=== PATIENT | male | born 1950 | race Caucasian/White ===

== ENCOUNTER → 2018-03-12 14:56 | Outpatient (CLI) | payer OTHER, SELFPAY ==
--- NOTE | 2018-03-12 14:58 | ECHOD_ITS ---
Reason For Study: Arrhythmia Procedure This was a 2D Doppler, Color Flow transthoracic echocardiogram. Exam performed in department. Left Ventricle Normal LV size. Left ventricular systolic function is normal. The estimated ejection fraction is 60 %. No evidence for diastolic dysfunction. No regional wall motion abnormalities noted. Right Ventricle Normal RV size. Normal systolic function. Atria Normal left atrium. Normal right atrium. Mitral Valve Normal mitral valve. Trivial eccentric mitral valve insufficiency. Tricuspid Valve Normal tricuspid valve. Mild tricuspid valve insufficiency. Aortic Valve Normal aortic valve. Trisinus/trileaflet aortic valve. Pulmonic Valve Normal pulmonic valve. Great Vessels Normal aortic root. The pulmonary artery is normal size. Normal inferior vena cava. Pericardium/Pleural No pericardial effusion. MMode/2D Measurements & Calculations LVIDd: 5.4 cm IVSd: 0.96 cm Ao root diam: 3.1 cm LVIDs: 3.8 cm LVPWd: 0.75 cm LA dimension: 4.3 cm RVDd: 3.5 cm FS: 29.5 % LAV(MOD-bp): 42.0 ml LA A4 area: 15.9 cm2 RA A4 area: 16.3 cm2 LAV(MOD-bp) Indexed: 19.2 ml/m2 LAV(MOD-sp2): 46.1 ml LAV(MOD-sp4): 31.3 ml Doppler Measurements & Calculations MV E max tejas: 61.2 cm/sec Lat Peak E' Tejas: 7.7 cm/sec Med Peak E' Tejas: 7.0 cm/sec MV A max tejas: 83.9 cm/sec E/E' lat: 8.0 E/E' med: 8.8 MV E/A: 0.73 Ao V2 max: 162.9 cm/sec LV V1 max: 95.8 cm/sec PA V2 max: 85.5 cm/sec Ao max P.6 mmHg LV V1 max P.7 mmHg Ao V2 mean: 113.1 cm/sec Ao mean P.7 mmHg Ao V2 VTI: 33.7 cm PI end-d tejas: 65.7 cm/sec TR max tejas: 218.8 cm/sec TR max P.1 mmHg Interpretation Summary Normal LV size. Left ventricular systolic function is normal. The estimated ejection fraction is 60 %. No evidence for diastolic dysfunction. Mild tricuspid valve insufficiency. Ordering Physician: Elpidio Arais Performed By: Mildred Hendrix, NAMAN, RVT
== END ==
PROVIDERS: Family Provider Family Medicine; PCP Family Medicine; Visit Provider Internal Medicine Cardiovascular Disease
DX: E27.5 Adrenomedullary hyperfunction (principal)
CPT/HCPCS: 93306

== ENCOUNTER 2018-07-31 20:51 | Observation (INO) | payer OTHER, SELFPAY ==
[2018-07-31 20:52] VITALS: BP 121/90; PULSE 70; RESP 18; TEMP 36.6; O2SAT 98; BMI 28.4
--- NOTE | 2018-07-31 21:22 | EKG12_ITS ---
Test Reason : Blood Pressure : / mmHG Vent. Rate : 074 BPM Atrial Rate : 074 BPM P-R Int : 174 ms QRS Dur : 086 ms QT Int : 400 ms P-R-T Axes : 082 -06 010 degrees QTc Int : 444 ms Normal sinus rhythm Normal ECG Confirmed by JASMIN MENARD, ARIEL ([id number]), managing editor ZAHRAA LOPEZ ([id number]) on 08/04/2018 3:04:18 PM Referred By: ROMEO Confirmed By:ARIEL CASTELLANOS MD
--- NOTE | 2018-07-31 21:25 | RAD_ITS ---
STUDY: X-RAY CHEST REASON FOR EXAM: Male, 67 years old. Chest pain and tightness TECHNIQUE: Single AP portable view of the chest. COMPARISON: Previous study of 08/05/2014 FINDINGS: in home aide leads are present. The lungs are clear and expanded. There is no demonstrated pleural abnormality. Normal size heart. Normal mediastinum and efrain. Normal visualized pulmonary arteries. Normal visualized aortic arch and descending thoracic aorta. Normal visualized thoracic spine. Normal visualized ribs, clavicles, and shoulders. There is no demonstrated abnormality of the visualized soft tissue structures of the upper abdomen. RAD/Chest 1 View (Portable) IMPRESSION: No acute cardiopulmonary disease process is seen. Chest findings are stable in the interval. Electronically Signed: Anders Bravo MD at 21:44 EDT , Service support ,
[2018-07-31] MEDS: Aspirin 81 MG TAB.CHEW 324 MG PO (21:30)
[2018-07-31 21:31] LABS: Absolute Lymphocyte Count 1.65 X10^3/ul (0.83-4.51); Absolute Neutrophil Count 8.8 X10^3/uL (2.0-7.7); Basophil# 0.02 X10^3/uL; Basophil% 0.2 % (0-1); Eosinophil# 0.11 X10^3/uL; Hematocrit 44.7 % (40-54); Hemoglobin 15.1 g/dl (13.0-16.5); Lymphocyte # 1.65 X10^3/ul (4.0); Lymphocyte % 14.8 % (19-41); Mean Corp Hgb Conc 33.8 g/gl (32-36); Mean Corpuscular Hgb 32.1 pg (27.0-32.0); Mean Corpuscular Volume 95.1 fL (80-94); Mean Platelet Vol. 9.5 fl (6.2-12.0); Monocyte# 0.56 X10^3/uL; Neutrophil # 8.79 X10^3/uL (2.7-7.7); Neutrophil % 78.8 % (47-70); POSITIVE COUNT NO; POSITIVE DIFFERENTIAL NO; POSITIVE MORPHOLOGY NO; Platelet Count 182 K/mm3 (150-450); RBC Distribution Width CV 12.7 % (11.6-14.6); White Blood Count 11.2 K/mm3 (4.4-11.0)
--- NOTE | 2018-07-31 21:36 | ED.DCSUM_ITS ---
- ER Visit Summary Date of Service: 07/31/18 Chief Complaint: Chest pain, dizziness History of Present Illness: The patient is a 67 M who presents with chest pain. Started 2 hours ago. He was dizzy after riding the rides at the [employer]. He had a sharp and tight pain in the left side of his chest. It did not radiate. He did admit to shortness of breath when he was walking at that time. Nothing makes it better or worse. 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 He had a normal echocardiogram in February. He does take a daily aspirin. Physical Examination: Vital signs reviewed. HEENT exam unremarkable. Heart is regular rate and rhythm without murmurs. Lungs are clear to auscultation. Abdomen is soft and nontender. Extremities reveal no edema. Peripheral pulses are equal. Skin exam normal. Neurologic exam normal. Test Results: EKG is sinus rhythm with rate of 74. No ST changes. Chest x-ray reveals chronic changes with nothing acute. White blood cell count 11.2. Chloride 109, glucose 174. Troponin normal Emergency Department Course and Treatment: She was given aspirin. He has a BERNABE score of 2. He states his pain went away and then came back. Due to this , I feel the patient should be admitted to the hospital he has not had a recent stress test. I spoke with the hospitalist to admit the patient to PCU Treatment Plan: [] Disposition: Admit Impression: Chest pain This note was generated with [employer] dictation software. It may contain incorrect words, spelling, and punctuation that were not noted in review of the chart prior to signing ED Disposition - Plan for ED Patient: Chief Complaint: Chest Pain Referrals: Lincoln Henning MD [Primary Care Provider] -
[2018-07-31 21:45] LABS: Anion Gap 6 (5-15); BUN 16 mg/dL (7-18); BUN/Creat Ratio 13.1 RATIO (10-20); Calcium,Total 8.9 mg/dL (8.5-10.1); Chloride 109 mmol/L (98-107); Creatinine, Serum 1.22 mg/dL (0.70-1.30); EST Glomerular Filtration Rate 63 mL/min (>60); Est Glom Filt Rate - Afr Amer 76 mL/min (>60); Estimated Creatinine Clearance 59.84 ml/min; Glucose 174 mg/dL (74-106); Potassium 4.2 mmol/L (3.5-5.1); Sodium Level 142 mmol/L (136-145)
[2018-07-31 22:15] VITALS: BP 137/48; PULSE 62; RESP 15; O2SAT 98
--- NOTE | 2018-07-31 22:32 | PCM.HP.STD ---
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 He went to the [facility] where he had three fun rides with his grandson. These rides included 'twisters'. His pain initially was at his left side of abdomen and to his left flank. This left flank pain and abdominal pain disappeared but on his way to the hospital he developed persistent pain below his left breast that began to radiate upwards. Associated with his symptoms is diaphoresis. He rate the pain below his left breast; and his left flank/abdominal pain as a 3 out of 10 Patient symptoms started about 2 hours before presentation to the ED. At the ED he was given ASA 324mg Patient follows up for Dr. Arias. Patient had echocardiogram on 03/12/2018 that showed normal systolic and diastolic function; and trivial mitral insufficiency and mild tricuspid insufficiency. Previously he had a cardiac cath that did not show obstructive coronary disease. 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) H/O congestive cardiomyopathy (Chronic) GERD (gastroesophageal reflux disease) (Chronic) HLD (hyperlipidemia) (Chronic) Family history of heart disease (Chronic) Medical History: Medical History (Last Reviewed 07/31/18 @ 23:57 by Gomez Anand MD) Substernal precordial chest pain (Chronic) R07.2 History of deep vein thrombosis of lower extremity (Chronic) Z86.718 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) E27.5 H/O congestive cardiomyopathy (Chronic) Z86.79 GERD (gastroesophageal reflux disease) (Chronic) K21.9 Chest pain (Acute) R07.9 HLD (hyperlipidemia) (Chronic) E78.5 Family history of heart disease (Chronic) Z82.49 H/O precordial chest pain Z87.898 Allergies No Known Allergies Allergy (Verified 07/31/18 20:56) Home Medications: Ambulatory Orders Medication Instructions Recorded Aspirin [Aspirin, Baby] 81 mg PO DAILY 12/14/13 Ranolazine [Ranexa] 500 mg PO BID 12/14/13 Multivitamins,Ther W-Minerals 1 tab PO DAILY 10/28/15 [Multivitamin With Minerals] cholecalciferol (vitamin D3) 1,000 1,000 unit PO QDAY tab 02/06/18 unit tablet atorvastatin 20 mg tablet 20 mg PO QDAY 02/13/18 Surgical History: Surgical History (Last Reviewed 07/31/18 @ 23:57 by Gomez Anand MD) History of tonsillectomy Z90.89 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 Underwent a radical prostatectomy for prostate cancer. Lives: Spouse/ Significant Other Smoking Status: Never smoker Alcohol: Occasional - *Family History Maternal Family History: Family History (Last Reviewed 07/31/18 @ 23:58 by Gomez Anand MD) Father CAD (coronary artery disease) CVA (cerebral vascular accident) Myocardial infarction, Onset Age: 50 Other Family history of heart disease History Items: - - His mother in her sleep presumably of a myocardial infarction Paternal Family History: Family History (Last Reviewed 07/31/18 @ 23:58 by Gomez Anand MD) Father CAD (coronary artery disease) CVA (cerebral vascular accident) Myocardial infarction, Onset Age: 50 Other Family history of heart disease History Items: - - His father had an [place] in his late 40s. Sibling Family History: Family History (Last Reviewed 07/31/18 @ 23:58 by Gomez Anand MD) Father CAD (coronary artery disease) CVA (cerebral vascular accident) Myocardial infarction, Onset Age: 50 Other Family history of heart disease History Items: - - He has a brother who of HIV Review of Systems Constitutional: Denies: Chills, Fever, Weight Change HEENT: Denies: Head Aches, Sinus Congestion, Sinus Drainage Cardiovascular: Reports: Chest Pain, Light Headedness Respiratory: Denies: Cough, Shortness of breath at rest, Sputum production Gastrointestinal: Reports: Abdominal Pain - Left flank pain Genitourinary: Denies: Dysuria Musculoskeletal: Denies: Joint Pain, Joint Tenderness Skin: Denies: Rash, Wounds Neurological: Denies: Numbness, Tingling, Focal weakness Psychiatric: Denies: Anxiety, Depression, Homicidal Ideations, Suicidal Ideations Hematologic/ Lymphatic: Denies: Easy Bruising, Easy Bleeding VTE Information - Inpt Only VTE Present on Admission: No VTE Mechan Device Prophylaxis: None VTE Pharm Prophylaxis ordered?: Yes - Physical Exam General: Alert, Oriented x3, Cooperative, - - Mild distress secondary to chest pain HEENT: Atraumatic, PERRLA, EOMI, Normocephalic Neck: Supple, No JVD, Negative Carotid Bruits Lungs: Clear to auscultation, Normal air movement Cardiovascular: Regular rate, No murmurs Abdomen: Soft, Hypoactive Bowel Sounds Extremities: No edema, Capillary Refill Less than 3 Seconds Skin: No rashes, No breakdown Musculoskeletal: No Tenderness to Palpation of Joints or Extremities Vital Signs Temp Pulse Resp BP Pulse Ox 97.8 F 62 15 137/48 H 98 07/31/18 20:52 07/31/18 22:15 07/31/18 22:15 07/31/18 22:15 07/31/18 22:15 Oxygen Flow Rate (L/min) 2 Oxygen Delivery Method Nasal Cannula Weight: 89.981 kg Body Mass Index (BMI) 28.4 Laboratory Tests Past 24 Hrs 07/31/18 07/31/18 20:55 20:55 WBC 11.2 H RBC 4.70 Hgb 15.1 Hct 44.7 MCV 95.1 H MCH 32.1 H MCHC 33.8 RDW 12.7 RDW Differential 44.0 H Plt Count 182 MPV 9.5 Immature Gran % (Auto) 0.200 Neut % (Auto) 78.8 H Lymph % (Auto) 14.8 L [place] % (Auto) 5.0 Eos % (Auto) 1.0 Baso % (Auto) 0.2 Absolute Neuts (auto) 8.8 H Absolute Lymphs (auto) 1.65 Total Counted Not Reportable Sodium 142 Potassium 4.2 Chloride 109 H Carbon Dioxide 27.0 Anion Gap 6 BUN 16 Creatinine 1.22 Estim Creat Clear Calc 59.84 Est GFR (MDRD) Af Amer 76 Est GFR (MDRD) Non-Af 63 BUN/Creatinine Ratio 13.1 Glucose 174 H Calcium 8.9 Troponin I < 0.015 Assessment/Plan All Active Problems (Last Reviewed 07/31/18 @ 23:57 by Gomez Anand MD) Chest pain (Acute) History of prostate cancer (Resolved) History of radical prostatectomy (Resolved) Personal history of pheochromocytoma (Resolved) The patient is a 67 year old M with a significant history of pheochromocytoma status post resection and 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 Chest Pain Likely the ride that he took stresses his heart Admit to a monitored bed on PCU CXR independently reviewed confirms no acute disease. EKG is not remarkable Old records reviewed showed unremarkable echocardiogram ASA 81 mg p.o. daily SL NTG 0.4 mg prn as needed for chest pain Ranexa continued Takes home Lipitor 20 mg daily. Lipitor escalated to 80 mg daily. Serial cardiac enzymes Stat EKG as needed for chest pain Treadmill Stress test in the AM if the cardiac enzymes are negative Lipids in am Since patient is a known patient of Dr. Arias, will consult cardiology Left Flank Pain/Left abdominal pain Resolved Could be muscle strain/sprain or a component of cardiac origin of pain Management of chest pain as above DVT prophylaxis Subcutaneous Lipitor Code Visit OBSV E&M: 64345 Initial observation care L3
--- NOTE | 2018-07-31 23:11 | NURSING ---
Called ED vulcanizing press operator, Ryan at this time confirm Pt okay to come to PCU.
--- NOTE | 2018-07-31 23:24 | EKG12_ITS ---
Test Reason : AM Blood Pressure : / mmHG Vent. Rate : 073 BPM Atrial Rate : 073 BPM P-R Int : 196 ms QRS Dur : 094 ms QT Int : 410 ms P-R-T Axes : 002 -20 -08 degrees QTc Int : 451 ms Normal sinus rhythm Normal ECG When compared with ECG of 31-JUL-2018 23:33, MANUAL COMPARISON REQUIRED, DATA IS UNCONFIRMED Confirmed by JASMIN MENARD, ARIEL ([id number]), field map editor ZAHRAA LOPEZ ([id number]) on 08/04/2018 3:54:44 PM Referred By: HOSP Confirmed By:ARIEL CASTELLANOS MD
[2018-07-31 23:30] VITALS: BP 142/79; PULSE 60; RESP 16; TEMP 36.2; O2SAT 98
[2018-08-01] VITALS (8 sets, daily range): BP systolic 134–135; BP diastolic 82–84; PULSE 60–70; RESP 16–18; TEMP 36.6–36.7; O2SAT 95–98; BMI 27.5
[2018-08-01 03:46] LABS: Hematocrit 41.7 % (40-54); Hemoglobin 14.3 g/dl (13.0-16.5); Mean Corp Hgb Conc 34.3 g/gl (32-36); Mean Corpuscular Hgb 32.6 pg (27.0-32.0); Mean Platelet Vol. 9.1 fl (6.2-12.0); Platelet Count 174 K/mm3 (150-450); RBC Distribution Width CV 12.5 % (11.6-14.6); RBC Distribution Width SD 42.3 fl (35.1-43.9); Red Blood Count 4.39 M/mm3 (4.6-6.2); White Blood Count 5.8 K/mm3 (4.4-11.0)
[2018-08-01 03:47] LABS: Scan Indicated on CBC? Y/N NO
[2018-08-01 03:49] LABS: Partial Thromboplast Time 26.9 Seconds (24.1-36.2)
[2018-08-01 03:55] LABS: Prothrombin Time (Protime)PT. 12.7 SECONDS (11.7-14.9)
--- NOTE | 2018-08-01 05:55 | EKG12_ITS ---
Test Reason : REPEAT Blood Pressure : / mmHG Vent. Rate : 059 BPM Atrial Rate : 059 BPM P-R Int : 204 ms QRS Dur : 098 ms QT Int : 430 ms P-R-T Axes : 049 -15 007 degrees QTc Int : 425 ms Sinus bradycardia Otherwise normal ECG When compared with ECG of 28-DEC-2015 12:32, No significant change was found Confirmed by JASMIN MENARD, ARIEL ([id number]), greeting card editor ZAHRAA LOPEZ ([id number]) on 08/04/2018 3:55:51 PM Referred By: ANDREW Confirmed By:ARIEL CASTELLANOS MD
[2018-08-01] MEDS: Aspirin E.C. 81 MG Tablet PO (06:15)
--- NOTE | 2018-08-01 08:19 | CON.PCM_ITS ---
Reason for Consult Date of Consultation: 08/01/18 Reason for Consultation: Chest pain. History of Present Illness: KACI BEAN, is a 67 M who presented to the emergency room after he started experiencing chest discomfort. He said that [place] and [place] doing [place] with his grandson and was actually hanging upside down. He started experiencing pain which started in his left lower quadrant and then migrated to the left upper quadrant and then to his chest. He was also diaphoretic. He got concerned and presented to the emergency room where he was evaluated and the decision to admit him was made. He is a gentleman with a history of pheochromocytoma status post resection and nonischemic cardiac myopathy which has since resolved. At this time he denies any chest pain or shortness breath or paroxysmal nocturnal dyspnea pedal edema he had previously developed a DVT for which he was placed on Xarelto. You remember he had developed some chest discomfort and underwent a cardiac catheterization with demonstrated no obstructive coronary disease. He was placed on Ranexa which he appears to be tolerating quite well. He has had no other symptomatology his physical exam is otherwise unremarkable his blood pressure is excellent. Past Medical History Allergies/Adverse Reactions: Allergies No Known Allergies Allergy (Verified 07/31/18 20:56) Home Medications: Ambulatory Orders Medication Instructions Recorded Aspirin [Aspirin, Baby] 81 mg PO DAILY 12/14/13 Ranolazine [Ranexa] 500 mg PO BID 12/14/13 Multivitamins,Ther W-Minerals 1 tab PO DAILY 10/28/15 [Multivitamin With Minerals] cholecalciferol (vitamin D3) 1,000 1,000 unit PO QDAY tab 02/06/18 unit tablet atorvastatin 20 mg tablet 20 mg PO QDAY 02/13/18 Past Medical History (Chronic Problems): Chronic Problems (Last Reviewed 07/31/18 @ 23:57 by Gomez Anand MD) Substernal precordial chest pain (Chronic) History of deep vein thrombosis of lower extremity (Chronic) 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 Underwent a radical prostatectomy for prostate cancer. - *Family History Maternal Family History: Family History (Last Reviewed 07/31/18 @ 23:58 by Gomez Anand MD) Father CAD (coronary artery disease) CVA (cerebral vascular accident) Myocardial infarction, Onset Age: 50 Other Family history of heart disease History Items: - - His mother in her sleep presumably of a myocardial infarction Paternal Family History: Family History (Last Reviewed 07/31/18 @ 23:58 by Gomez Annad MD) Father CAD (coronary artery disease) CVA (cerebral vascular accident) Myocardial infarction, Onset Age: 50 Other Family history of heart disease History Items: - - His father had an [place] in his late 40s. Sibling Family History: Family History (Last Reviewed 07/31/18 @ 23:58 by Gomez Anand MD) Father CAD (coronary artery disease) CVA (cerebral vascular accident) Myocardial infarction, Onset Age: 50 Other Family history of heart disease History Items: - - He has a brother who of HIV Lives: Spouse/ Significant Other Smoking Status: Never smoker Alcohol: None, Occasional Drugs: None Review of Systems - Review of Systems General: Denies: Fever, Night Sweats, Fatigue Cardiovascular: Denies: Chest Discomfort, Shortness of Breath, Orthopnea, PND, Peripheral Edema, Palpitations, Lightheadedness, Dizziness, Near Syncope, Syncope Respiratory: Denies: Cough, Sputum Production, Hemoptysis Gastrointestinal: Denies: Hematemesis, Hematochezia, Melena Genitourinary: Denies: Dysuria, Hematuria Skin: Denies: Rash Subjectve: Pleasant gentleman in no apparent distress Objective: Vital Signs Temp Pulse Resp BP Pulse Ox 98.1 F 70 18 134/82 H 95 08/01/18 05:02 08/01/18 06:55 08/01/18 05:02 08/01/18 05:02 08/01/18 05:02 Oxygen Flow Rate (L/min) 2 Oxygen Delivery Method Room Air Weight: 191 lb 12.835 oz Body Mass Index (BMI) 27.5 General: Awake, Alert, Oriented x 3 HEENT: PERRL, EOMI, Sclera Non Icteric Neck: Supple, Good ROM, No Lymph Node Enlargement Lungs: Clear to auscultation Cardiovascular: Regular Rhythm, Normal S1, Normal S2, No Murmurs, No Rubs, No Gallops Vascular: No Carotid Bruits, Normal Femoral Pulses, Normal Radial Pulses, Normal Dorsalis Pedal Pulse, Normal Posterior Tibial Pulses Abdomen: Bowel Sounds Present, Soft, Non Tender, No HSM, No Organomegaly Extremities: No Cyanosis, No Clubbing, No edema Neurological: No Focal Motor or Sensory Deficit 08/01/18 00:27: Troponin I < 0.015 08/01/18 03:30: PT 12.7, INR 1.0 08/01/18 03:30: Troponin I < 0.015 08/01/18 03:30: WBC 5.8, RBC 4.39 L, Hgb 14.3, Hct 41.7, MCV 95.0 H, MCH 32.6 H , MCHC 34.3, RDW 12.5, RDW Differential 42.3, Plt Count 174, MPV 9.1 08/01/18 03:30: APTT 26.9 Rhythm: EKG: Normal sinus rhythm with no acute changes Assessment/Plan 1. Atypical chest pain Patient has a history of pheochromocytoma which has been resected and no obstructive coronary disease done on cardiac catheterization at least twice. His chest discomfort appears to be atypical and provoked by his rides. My recommendation would be to pursue the stress testing and if it is normal then he can be discharged for outpatient follow-up. I have explained this to him he understands and agrees to proceed. 2. Cardiomyopathy He did have a previous cardia myopathy secondary to a pheochromocytoma. His ejection fraction has noted to be back to normal and at this time I do not think there is a reason to pursue any repeat echocardiographic evaluation. Thank you for allowing me to participate in the care of your patient. Please don't hesitate to call if any issues arise
[2018-08-01 08:24] LABS: Anion Gap 9 (5-15); BUN 15 mg/dL (7-18); BUN/Creat Ratio 13.3 RATIO (10-20); Calcium,Total 8.2 mg/dL (8.5-10.1); Chloride 112 mmol/L (98-107); Cholesterol 149 mg/dL (200); Creatinine, Serum 1.13 mg/dL (0.70-1.30); EST Glomerular Filtration Rate 68 mL/min (>60); Est Glom Filt Rate - Afr Amer 83 mL/min (>60); Glucose 112 mg/dL (74-106); High Density Lipoprotein 38 mg/dL; Potassium 3.9 mmol/L (3.5-5.1); Sodium Level 145 mmol/L (136-145); Triglycerides 79 mg/dL; Very Low Density Lipoprotein 16 mg/dL (5-40)
--- NOTE | 2018-08-01 10:48 | STRESSREP ---
Stress Test Report Exercise myocardial perfusion stress test. 67-year-old male with a history of chest pain. Stress protocol: Resting EKG demonstrates sinus rhythm with a rate of 63 bpm normal intervals and noted. The patient exercised according to regular Peyman protocol for total duration of 9 minutes completing stage III of the Peyman protocol the maximum heart rate attained was 725 beats minute which is 82% of maximum predicted heart rate the maximum workload was 10.1 metabolic equivalent. At rest there were no ST or T-wave changes noted suggest ischemia peak exercise upsloping ST changes only were noted with no meet the criteria for ischemia. No clinical angina was noted. Resting blood pressure is 136/94. The peak blood pressure is 178/84 mmHg. Myocardial perfusion protocol. 11.4 mCi of technetium 99m sestamibi was injected at rest. The patient exercised according to regular Peyman protocol for total duration of 9 minutes attaining 82% of maximum predicted heart rate and a workload of 10.1 metabolic equivalents at peak exercise 32.9 mCi of technetium 99m sestamibi was injected stress images were obtained stress and rest images were reconstructed and compared in the short axis vertical long horizontal long axis. Gated images were also obtained next Perfusion SPECT analysis: Review of the stress images demonstrate normal uptake of tracer noted in all areas of the myocardium. The resting images similarly demonstrate normal uptake of tracer noted in all areas of the myocardium. No reversibility is noted suggest ischemia. Gated SPECT analysis: The gated ejection fraction is 69%. Conclusion: Normal excise myocardial perfusion stress test at a high workload. Preserved ejection fraction.
--- NOTE | 2018-08-01 11:05 | PCM.DC ---
You will use the following diet at home:: Cardiac Discharge Activity: Return to Normal Activity Call your doctor if you observe: Shortness of breath, Dizziness, Fainting spells, Chest pain Allergies/Adverse Reactions: Allergies No Known Allergies Allergy (Verified 07/31/18 20:56) Medications to take at Discharge Aspirin [Aspirin, Baby] 81 mg PO DAILY 12/14/13 Ranolazine [Ranexa] 500 mg PO BID 12/14/13 Multivitamins,Ther W-Minerals [Multivitamin With Minerals] 1 tab PO DAILY 10/28/15 cholecalciferol (vitamin D3) 1,000 unit tablet 1,000 unit PO QDAY tab 02/06/18 atorvastatin 20 mg tablet 20 mg PO QDAY 02/13/18 Primary Care Physician: Lincoln Henning MD [Primary Care Provider] - Please follow up with your Primary Care Physician in: 1 Week Test Results: Test results from this visit will be discussed in further detail at your follow-up appointment, if applicable. Proposed Discharge Date: 08/01/18
--- NOTE | 2018-08-01 11:09 | PCM.DC.SUM ---
<Radha Chakraborty - Last Filed: 08/01/18 11:22> Discharge Date and Diagnosis Date of Admission: 07/31/18 Date of Discharge: 08/01/18 - Primary Discharge Diagnosis 1. 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 Chest findings are stable in the interval. Electronically Signed: Anders Bravo MD at 21:44 EDT , Service support , Operations: None Procedures: Stress test Summary of Care Provided: The patient is a 67 year old M admitted 07/31/2018 due to chest pain. He states this occurred while [place] rides at the [place] with his grandson. Patient also notes he has chronic chest pain and is on Ranexa. 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 Patient was evaluated by cardiology. Troponin negative. Patient underwent nuclear stress test which was negative for ischemia. Patient denies further chest pain. ACS ruled out. Echocardiogram in February 2018 showed an EF of 60%, no evidence of diastolic dysfunction. Patient stable for discharge home with further follow-up with primary care physician. Patient also follows with Dr. Arias as outpatient. Continue outpatient follow-up with cardiology as scheduled. General: Alert, Oriented x3, Cooperative HEENT: Atraumatic, PERRLA, EOMI, Normocephalic Neck: Supple, No JVD, Negative Carotid Bruits Lungs: Clear to auscultation, Normal air movement Cardiovascular: Regular rate, No murmurs Abdomen: Soft, normal bowel sounds, nontender Extremities: No edema, Capillary Refill Less than 3 Seconds Skin: No rashes, No breakdown Musculoskeletal: No Tenderness to Palpation of Joints or Extremities Patient seen exam prior to discharge. Physical assessment as noted above. Patient is stable for discharge home with follow-up with primary care physician and cardiology as noted above. Discharge Diet: Low fat/ Low Cholesterol Discharge Activity: Return to Normal Activity Call your doctor if you observe: Shortness of breath, Dizziness, Fainting spells, Chest pain Home Medications: Medications to take at Discharge Aspirin [Aspirin, Baby] 81 mg PO DAILY 12/14/13 Ranolazine [Ranexa] 500 mg PO BID 12/14/13 Multivitamins,Ther W-Minerals [Multivitamin With Minerals] 1 tab PO DAILY 10/28/15 cholecalciferol (vitamin D3) 1,000 unit tablet 1,000 unit PO QDAY tab 02/06/18 atorvastatin 20 mg tablet 20 mg PO QDAY 02/13/18 Primary Care Physician: Lincoln Henning MD [Primary Care Provider] - Please follow up with your Primary Care Physician in: 1 Week Disposition: Home Minutes spent on discharge:: 35 Patient Condition:: Stable Medical Necessity - Tobacco Use Smoking Status: Never smoker Meaningful Use Info Meaningful Use Diagnoses (Choose all that apply): None applicable <Roly Hu - Last Filed: 08/01/18 16:06> Discharge Date and Diagnosis - Secondary Discharge Diagnosis Chronic Problems (Last Reviewed 07/31/18 @ 23:57 by Gomez Anand MD) Substernal precordial chest pain (Chronic) History of deep vein thrombosis of lower extremity (Chronic) 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 I have independently interviewed and examined the patient and reviewed pertinent history, examination findings, laboratory and plan of management. I have reviewed the note and agree with the documented findings with the few additional points. In brief, patient is admitted for atypical left-sided chest pain. Patient had chest pain after he had ride which I think it was too much for his age and he started having left upper quadrant abdominal wall pain which moved to chest. He had nuclear stress test which was negative for ischemia. Discharge medication reconciliation done. Discharge follow-up instructions completed. I have discussed my assessment with Radha FRANKEL and orders have been reviewed. [] Code Visit OBSV E&M: 89770 Observation care discharge
--- NOTE | 2018-08-01 11:22 | DS.PCM_ITS ---
<Radha Chakraborty - Last Filed: 08/01/18 11:22> Discharge Date and Diagnosis Date of Admission: 07/31/18 Date of Discharge: 08/01/18 - Primary Discharge Diagnosis 1. 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 Chest findings are stable in the interval. Electronically Signed: Anders Bravo MD at 21:44 EDT , Service support , Operations: None Procedures: Stress test Summary of Care Provided: The patient is a 67 year old M admitted 07/31/2018 due to chest pain. He states this occurred while riding rides at the fair with his grandson. Patient also notes he has chronic chest pain and is on Ranexa. 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 Patient was evaluated by cardiology. Troponin negative. Patient underwent nuclear stress test which was negative for ischemia. Patient denies further chest pain. ACS ruled out. Echocardiogram in February 2018 showed an EF of 60%, no evidence of diastolic dysfunction. Patient stable for discharge home with further follow-up with primary care physician. Patient also follows with Dr. Arias as outpatient. Continue outpatient follow-up with cardiology as scheduled. General: Alert, Oriented x3, Cooperative HEENT: Atraumatic, PERRLA, EOMI, Normocephalic Neck: Supple, No JVD, Negative Carotid Bruits Lungs: Clear to auscultation, Normal air movement Cardiovascular: Regular rate, No murmurs Abdomen: Soft, normal bowel sounds, nontender Extremities: No edema, Capillary Refill Less than 3 Seconds Skin: No rashes, No breakdown Musculoskeletal: No Tenderness to Palpation of Joints or Extremities Patient seen exam prior to discharge. Physical assessment as noted above. Patient is stable for discharge home with follow-up with primary care physician and cardiology as noted above. Discharge Diet: Low fat/ Low Cholesterol Discharge Activity: Return to Normal Activity Call your doctor if you observe: Shortness of breath, Dizziness, Fainting spells , Chest pain Home Medications: Medications to take at Discharge Aspirin [Aspirin, Baby] 81 mg PO DAILY 12/14/13 Ranolazine [Ranexa] 500 mg PO BID 12/14/13 Multivitamins,Ther W-Minerals [Multivitamin With Minerals] 1 tab PO DAILY cholecalciferol (vitamin D3) 1,000 unit tablet 1,000 unit PO QDAY tab 02/06/18 atorvastatin 20 mg tablet 20 mg PO QDAY 02/13/18 Primary Care Physician: Lincoln Henning MD [Primary Care Provider] - Please follow up with your Primary Care Physician in: 1 Week Disposition: Home Minutes spent on discharge:: 35 Patient Condition:: Stable Medical Necessity - Tobacco Use Smoking Status: Never smoker Meaningful Use Info Meaningful Use Diagnoses (Choose all that apply): None applicable <Roly Hu - Last Filed: 08/01/18 16:06> Discharge Date and Diagnosis - Secondary Discharge Diagnosis Chronic Problems (Last Reviewed 07/31/18 @ 23:57 by Gomez Anand MD) Substernal precordial chest pain (Chronic) History of deep vein thrombosis of lower extremity (Chronic) 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 I have independently interviewed and examined the patient and reviewed pertinent history, examination findings, laboratory and plan of management. I have reviewed the note and agree with the documented findings with the few additional points. In brief, patient is admitted for atypical left-sided chest pain. Patient had chest pain after he had ride which I think it was too much for his age and he started having left upper quadrant abdominal wall pain which moved to chest. He had nuclear stress test which was negative for ischemia. Discharge medication reconciliation done. Discharge follow-up instructions completed. I have discussed my assessment with Radha FRANKEL and orders have been reviewed. [] Code Visit OBSV E&M: 51666 Observation care discharge
[2018-08-01] MEDS: Ibuprofen 600 MG Tablet PO (11:51)
== END 2018-08-01 11:06 | disposition home or self-care (01) ==
LOC: ED 21:18 → PCU 23:12
PROVIDERS: Admitting Provider Hospitalist; Emergency Provider Emergency Medicine; Family Provider Family Medicine; PCP Family Medicine; Visit Provider Internal Medicine
DX: R07.89 Other chest pain (principal); E78.5 Hyperlipidemia, unspecified; K21.9 Gastro-esophageal reflux disease without esophagitis; Z85.46 Personal history of malignant neoplasm of prostate; I42.9 Cardiomyopathy, unspecified; Z79.899 Other long term (current) drug therapy; Z79.82 Long term (current) use of aspirin; Z86.718 Personal history of other venous thrombosis and embolism; R42 Dizziness and giddiness; R06.02 Shortness of breath
CPT/HCPCS: 36415; 71045; 78452; 80048; 80061; 84484; 85025; 85027; 85610; 85730; 93005; 93017; 99218; 99285; A9500; A4216; G0378

== ENCOUNTER → 2019-08-07 17:47 | Outpatient (CLI) | payer OTHER, SELFPAY ==
[2019-02-10 15:56] VITALS: BMI 29.1
--- NOTE | 2019-08-07 18:15 | MRI_ITS ---
HISTORY:RIGHT 2nd MTPJ plantar plate tear, capsulitis. Feels like Tquot;walking on a marbleTquot; at base of 2nd toe . Second metatarsophalangeal joint capsulitis and intermetatarsal space neuroma MRI EXAMINATION OF THE Rightforefoot COMPARISON: None # of images including paperwork:189 TECHNIQUE: Sagittal T1 and STIR, coronal T2 and axial T1 and T2 FINDINGS: Bones: No fracture, contusion, bone marrow edema, or bone marrow tumor is identified. There is no evidence for osteomyelitis. Subtle increased signal on STIR-weighted images within the medial sesamoid seen on sagittal image 7 series 5 Osteophyte formation is seen at the first metatarsal head Hammertoe deformities are seen at the second through fifth toes Degenerative changes seen with joint space narrowing and osteophyte formation at the first metatarsophalangeal joint with minimal hallux valgus deformity Joints: There is a minimal joint effusion seen at the third metatarsophalangeal joint dorsally. Ligaments: The visualized ligaments are unremarkable without medial or lateral collateral ligament rupture or strain. Soft tissues: There is fluid seen within the intermetatarsal bursa between the first and second metatarsal head second and third and third and fourth.. No Schneider's neuroma or other mass is seen. Question small tear of the lateral plantar plate seen on axial image 17 series 8 involving digit 1. No significant fluid is noted in this region however. The remainder the plantar plates are intact. Tendons: The visualized foot tendons are intact without splitting, increased or decreased caliber, or discontinuity identified. MRI/Lower Ext/No Jt/w/o IMPRESSION: I do not see evidence of a Schneider's neuroma It may be of benefit to repeat the study with contrast as this may enhance visualization if clinically indicated There is degenerative change seen at the first metatarsophalangeal joint with a mild hallux valgus deformity Small joint effusion seen at the third metatarsophalangeal joint Question medial plantar plate tear involving digit 1 but no significant fluid is seen in this region. There is minimal edema seen within the medial sesamoid Collateral ligaments appear intact. Intermetatarsal bursal fluid collection involving the first and second, second and third and third and fourth intermetatarsal versus. at 1950 Reported and signed by: Nadia Pastor DO Electronically Signed: Nadia Pastor DO at 19:49 EDT Tel , Service support ,
== END ==
PROVIDERS: Family Provider Family Medicine; PCP Family Medicine; Referring Provider Podiatrist; Visit Provider Podiatrist
DX: S93.691A Other sprain of right foot, initial encounter (principal); M77.51 Other enthesopathy of right foot and ankle; G57.61 Lesion of plantar nerve, right lower limb
CPT/HCPCS: 73718

== ENCOUNTER → 2019-09-21 12:59 | Outpatient (CLI) | payer OTHER, SELFPAY ==
[2019-08-18 11:04] VITALS: BMI 29.1
--- NOTE | 2019-09-21 13:01 | STEWCON_ITS ---
Reason For Study: CAD, Chest Pain Stress Results Protocol: Peyman Protocol Maximum Predicted HR: 150 bpm Target HR: 128 bpm % Maximum Predicted HR: 85 % DurationHeart Rate Stage (mm:ss) (bpm) BP Comment Baseline 64 130/84No Chest Pain; 3 ML Diluted Definity Given Peyman Protocol Stage I 3:00 88 138/70No Chest Pain Peyman Protocol Stage II 3:00 96 140/68No Chest Pain Peyman Protocol Stage III 3:00 112 150/62No Chest Pain Peyman Protocol Stage IV 0:36 127 / No Chest Pain Recovery 76 128/82No Chest Pain Stress Duration: 9:36 mm:ss Maximum Stress HR: 127 bpm METS: 11 Baseline Echocardiogram Findings Stress Echo Wall motion Data Resting WM Intermediate WM Stress WM Interpretation Summary Exercise stress echo. Resting EKG demonstrates sinus rhythm with a rate of 63 bpm normal intervals are noted resting blood pressure 730/80 4 mmHg. The patient exercised according to regular Peyman protocol for total duration of 9 minutes and 36 seconds. The maximum heart rate attained was 129 bpm which was 86% of maximum predicted heart rate and maximum workload was 11.7 metabolic equivalents. At rest there were no ST or T wave changes noted suggest ischemia peak exercise upsloping ST changes only were noted with no meet the criteria for ischemia. No clinical angina was noted the test was terminated due to the target heart rate being achieved. Resting blood pressures 130/84 with a peak blood pressure 150/78 mmHg. Stress echocardiogram. The stress echo cardiographic images were obtained with and without Definity. The resting ejection fraction was noted to be 50 to 53%. The peak ejection fraction was noted to be 65% no wall motion abnormalities were noted. Conclusion: Exercise stress test with no EKG criteria for ischemia. Normal resting and stress echocardiographic images at a high workload. Ordering Physician: Elpidio Arias Referring Physician: Pascual Henning Performed By: Marianna Fernandez RDCS
== END ==
PROVIDERS: Family Provider Family Medicine; PCP Family Medicine; Referring Provider Internal Medicine Cardiovascular Disease; Visit Provider Internal Medicine Cardiovascular Disease
DX: I25.119 Atherosclerotic heart disease of native coronary artery with unspecified angina pectoris (principal); R07.9 Chest pain, unspecified
CPT/HCPCS: 93017; 93350; Q9957; A4216; C8928

== ENCOUNTER 2019-12-25 12:21 | Day surgery (SDC) | payer OTHER, SELFPAY ==
[2019-08-18 11:04] VITALS: BMI 29.1
[2019-12-25] VITALS (7 sets, daily range): BP systolic 111–152; BP diastolic 71–88; PULSE 57–74; RESP 16–18; TEMP 36.2–36.6; O2SAT 97–100; BMI 29.9
--- NOTE | 2019-12-25 | NEUR_PTH ---
PATIENT: KACI BEAN LOC: [facility] – [place] U#:[id number] AGE/SX: 69/M ROOM: RE12/25/[address]: Dr. Dominick Valverde DPM : 1950 BED: DIS: 12/25/2019 SPEC #: [id number] RECD: 12/25/19 14:34 STATUS: JANNETTE REJuan #: [id number] CORIN: 12/25/19 00:[address]: Dominick Valverde DEPT: SURGICAL PATHOLOGY RECD BY: Kenney Avery ENTERED: 12/28/19 12:22 SP TYPE: NEUROMA OTHR DR: Dr. Lincoln Henning MD Tissues: A - NEUROMA B - Plantar digital nerves, NOS Procedures: Decalcification bone/plaque Surgery Specimen Level IV HEADER OPERATION: Fusion correction of second hammertoe, second metatarsal osteotomy PRE-OP DIAGNOSIS: Second digit hammertoe; second phalangeal plantar plate injury; bursitis/ intermetatarsal neuroma second intermetatarsal space TISSUE SUBMITTED: A - Neuroma second toe right foot, B - Plantar plate second toe right foot MICROSCOPIC DIAGNOSIS A. Soft tissue, second toe, right foot, biopsy: Consistent with neuroma. B. Plantar plate, second toe, right foot, biopsy: Bone and fibrocollagenous tissue with minimal reparative change. AM:gallito 12/31/19 MICROSCOPIC DESCRIPTION Slides are reviewed. GROSS DESCRIPTION A - Received in fixative is one container labeled with the patient's name and designated neuroma right second toe. The specimen consists of multiple irregular fragments of light malik-yellow soft tissue that in aggregate measure 3 x 2 x 0.2 cm. The specimen is totally submitted in one cassette. B - Received in fixative is one container labeled with the patient's name and designated plantar plate right second toe. The specimen consists of two bony fragments of malik-white soft tissue measuring in aggregate 2 x 1 x 0.2 cm. The specimen is submitted in its entirety in one cassette after decalcification. / AM:gallito 12/28/19 TC:5 CPT: 34340 x2, 07536
--- NOTE | 2019-12-25 12:49 | DCINST_ITS ---
Discharge Diet: Light diet - advance as tolerated Discharge Activity: May Not Drive Weight Bearing Status: No weight bearing - No weightbearing right foot Keep extremity elevated above heart level: Right Leg - Keep right foot elevated for at least 50 minutes of every hour Call your doctor if your incision/area has: Continuous Slow Oozing, Sudden Increased Bleeding, Foul Smelling Discharge Call your doctor if you observe: Fever of 101 or Higher, Shortness of breath, Chest pain, Calf discomfort, Uncontrolled pain Cleanse incision/area with: Do not get Incision Wet, Keep Dressing Clean & Dry Allergies/Adverse Reactions: Allergies No Known Allergies Allergy (Verified 12/24/19 09:01) Medications to take at Discharge Multivitamins,Ther W-Minerals [Multivitamin With Minerals ([facility])] 1 tab PO DAILY 10/28/15 atorvastatin 20 mg tablet 20 mg PO QDAY 02/13/18 Vitamin B Complex 1 ea PO DAILY 12/24/19 Hydrocodone/Acetaminophen [Faith 5-325 Tablet] 1 - 2 each PO Q6H PRN PRN 3 Days #30 tablet 12/25/19 Rivaroxaban [Xarelto] 10 mg PO DAILY #21 tab 12/25/19 The following prescriptions were given: Hydrocodone/Acetaminophen [Faith 5-325 Tablet] 1 - 2 each PO Q6H PRN PRN 3 Days #30 tablet PRN Reason: Pain Score 1-10/10 Transmission Status: Received by [facility]/pharmacy #[id number] Rivaroxaban [Xarelto] 10 mg PO DAILY #21 tab Transmission Status: Pending to [facility]/pharmacy #[id number] Primary Care Physician: Lincoln Henning MD [Primary Care Provider] - Test Results: Test results from this visit will be discussed in further detail at your follow- up appointment, if applicable. Please Follow Up With: Dominick Valverde DPM - Call Dr. Valverde if needed, cell: [phone], office: [phone] When: 1 week, sooner if needed
[2019-12-25] MEDS: Lactated Ringers 1,000 ML 75 ML IV (13:15)
[2019-12-25] MEDS: Cefazolin 2 GM in 0.9% Normal Saline 100 ML IV (13:43)
[2019-12-25] MEDS: Bupivacaine Mpf 0.5% 30 ML VIAL (13:58)
--- NOTE | 2019-12-25 14:00 | RAD_ITS ---
STUDY: X-RAY - RIGHT FOOT CLINICAL: Male, 69 years old. RT FUSION AND OSTEOTOMY OF RT 2ND MTP JOINT TECHNIQUE: 3 view(s) of the foot. 20 seconds fluoroscopy time COMPARISON: None. FINDINGS: Distal osteotomy of the second metatarsal stabilized with 2 orthopedic screws. Fully threaded longitudinal orthopedic screw of the second toe through the proximal and distal interphalangeal joints and respective phalanges. There is degenerative arthrosis of the metatarsophalangeal joint of the hallux . Normal tibial and fibular sesamoid bones. Normal interphalangeal joint of the great toe. Normal phalanges of the great toe. RAD/Foot min 3 Views IMPRESSION: Screw fixation of the proximal and distal interphalangeal joints of the second toe in anatomic alignment. Osteotomy of the second distal metatarsal with 2 orthopedic screws. Normal alignment of the second metatarsophalangeal joint. Electronically Signed: Beverly Zamora MD at 0:02 EST , Service support ,
--- NOTE | 2019-12-25 16:03 | PCM.OPRPT ---
Report of Operation Date of Procedure: 12/25/19 Pre-Operative Diagnosis: Right 2nd hammer toes, 2nd MTPJ plantar plate injury/tear, bursitis/intermetatarsal neuroma 2nd intermetatarsal space - all right foot Post-Operative Diagnosis: Same Surgery/Procedure Performed:: Arthrodesis right 2nd toe. 2nd metatarsal osteotomy with repair of plantar plate 2nd metatarsal phalangeal joint right. 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 Edin Galeano Type of Anesthesia:: Local MAC, Local Specimen's removed: 1. Plantar plate 2nd metatarsal phalangeal joint right - sent to pathology. 2. Excised 2nd intermetatarsal bursa/neuroma, right - sent to pathology Estimated Blood Loss (mL): 15mL Description of Procedure: Indications: This is a 69 year old gentleman with chronic right foot pain at the level of the 2nd metatarsal phalangeal joint and 2nd intermetatarsal space. There is noted to be instability of the 2nd metatarsal phalangeal joint (MTPJ) with pain present at the level of the plantar plate. There is also pain at the level of the 2nd intermetatarsal spaces consistent with intermetatarsal space neuroma/bursitis. He has instability of the 2nd MTPJ plantar plate, 2nd digit hammer toe as well as + anel's sign to the 2nd intermetatarsal space. He is normally very active, however this is painful and restricting his activity level. We discussed further options - he would like to proceed forward with 2nd metatarsal osteotomy with repair of 2nd metatarsal phalangeal joint plantar plate, along with excision of 2nd intermetatarsal space neuroma/bursitis on the right foot. We discussed this in detail, reviewed the procedures in great detail, as well as the possible benefits vs risks, and all alternative options. Reviewed the goals, expectations, and typical healing time / post operative recovery course. This was discussed with him in detail, and he elected to move forward with the planned procedures. The consent forms were reviewed with him, and he freely signed them. All of his questions were answered. Operative Procedure: The patient was brought back into the operative room and was placed on the operating room table in the supine position. He was carefully secured to the operating room table with a safety belt around his waist. A time out was performed and the patient was properly identified and the surgical plan was confirmed. The patient received 2g of IV Cefazolin for antibiotic prophylaxis. A well padded pneumatic tourniquet was applied around the right ankle. The patient did receive MAC anesthesia per the anesthesiologist, and a total of 10mL of 0.5% Bupivicaine plain as a regional nerve block around the 2nd ray on the right foot after the overlying skin was cleansed with 70% isopropyl alcohol. The right foot was scrubbed, prepped, draped in the usual aseptic fashion. The right foot was exsanguinated and the right ankle pneumatic tourniquet was inflated to 250mmHg. Right 2nd toe arthrodesis: Attention was directed to the 2nd toe on the right foot, it was contracted consistent with a hammer toe. A dorsal linear longitudinal incision was made over the proximal interphalangeal joint (PIPJ) of the toe. An incision was made longitudinally to the extensor digitorum longus tendon and split down the middle, leaving the ends intact, this was done with a 15 blade. The dorsal PIPJ joint capsule was incised with a 15 blade. The cartilage from the head of the proximal phalanx was resected using a powered sagittal saw, and cartilage from the base of the middle phalanx was resected using a bone cutting rongeur and curette. The site was flushed out with copious amounts of normal saline solution. An Arthrex FT compression screw was placed through the phalanges of the toe holding the toe in rectus position. This was confirmed with intra operative fluoroscopy. The site was again flushed out with copious amounts of normal saline solution. The skin was reapproximated using 4-0 Monocryl. Right 2nd metatarsal osteotomy and 2nd MTPJ plantar plate repair: Attention was directed to the 2nd MTPJ, there was a positive dorsal drawer to the MTPJ consistent with a plantar plate injury/instability. Using a 15 blade a linear longitudinal skin incision was overlying lateral aspect of the distal 2nd metatarsal and MTPJ on the dorsal aspect of the foot. Careful dissection was completed down through the subcutaneous layer to the dorsal MTPJ capsule. The capsule of the MTPJ was identified and was carefully incised dorsally, it was carefully reflected from the dorsal aspect, exposing the metatarsal head and base of the proximal phalanx of the toe. The MTPJ was visualized, the overlying cartilage was intact. Using a powered sagittal saw a Tania osteotomy was completed to the metatarsal, being sure to place the osteotomy parallel to the weightbearing surface. The head of the metatarsal was shifted proximally to visualize the plantar plate, and temporarily fixated using a kwire. The joint was gently distracted. The plantar plate was visualized, it was noted that the plantar plate did have a tear and was also noted to be attenuated and degenerative. The distal part was frayed and this was debrided and sent to pathology for further evaluation. There were noted to be adhesions between the plantar plate and the flexor tendon. The plantar plate was freed up, the adhesions were released using a Mcglamry elevator. The plantar plate was reapproximated, repaired, and tightened with the Arthrex CRP Scorpion hand piece and 0 FiberWire. The FiberWire was weaved through the plantar plate. Vertical parallel drill holes were made to the base of the 2nd toe proximal phalanx extra-articular in standard fashion, and the FiberWire was placed through the drill holes. The temporary fixation (kwire) was removed from the shaft and head of the metatarsal. The 2nd metatarsal was reapproximated to the distal end of the metatarsal. The metatarsal was shortened a few millimeters, and the osteotomy was fixated with two Arthrex snap off screws from the CPR kit. The 2nd toe was plantarflexed and the FberWire was tied down overlying the dorsal aspect of the base of the proximal phalanx of the toe. At this time there was negative dorsal drawer and there was complete repair of the plantar plate. The site was flushed out with copious amounts of normal saline solution. The joint capsule was reapproximated using 4-0 Vicryl, the subcutaneous tissue layer was reapproximated using 4-0 Vicryl. The skin was reapproximated using 4-0 Monocryl. All vital structures including all vital neurovascular structures were properly identified and protected/retracted as necessary. Excision of right 2nd intermetatarsal neuroma/bursa: Attention was directed to the 2nd intermetatarsal space. A skin incision was made using a 15 blade on the dorsal aspect just lateral to the dorsal 2nd metatarsal. Careful dissection was completed down to the deep transverse metatarsal ligament which was released in sharp fashion. Again a neuroma as well as a soft tissue mass was identified and localized to the site. The mass was with a bursa. The neuroma was very large and was noted to be yellow, degenerative, with perineural fibrosis. The mass/bursa appeared inflamed, and yellow in appearance. These were carefully dissected out. The mass/bursa was excised. The neuroma was transected at the proximal aspect as well as the distal branches, and the neuroma was removed. These were removed and were passed from the surgical site and sent to pathology. All other tissue to the site was healthy and viable with no other abnormality present. The site was flushed out with copious amounts of normal saline solution, all tissues appeared to be healthy and viable with tissue planes intact. The subcutaneous tissue was reapproximated using 4-0 Vicryl. The skin was reapproximated using 4-0 Monocryl. All vital structures including all vital neurovascular structures were properly identified and protected/retracted as necessary. An additional 15 mL of 0.5% Bupivacaine plain as well as 8mL of 1% Lidocaine plain was given as local nerve block around the surgical sites as needed throughout the procedure for further pain control. The right ankle pneumatic tourniquet was deflated (total tourniquet time was 60 minutes) and there was immediate return vascular flow to the foot, CFT < 2 seconds to all toes, normal temperature gradient, pedal pulses intact. Hemostasis was achieved prior to closure. A dressing was applied which consisted of Betadine soaked adaptic, 4x4 gauze, Kerlix, and mario bandage. The patient tolerated the above operative procedure well at the anesthesia well with no complication. The patient was transported to the recovery room with vital signs stable and in good condition. Post operative orders were placed. Post operative instructions were reviewed with the patient as well as with his who was here with him today. No weightbearing right foot, keep right foot elevated for at least 50 minutes of every hour, keep dressing clean, dry and intact. Prescription for Phyllis 5mg/325mg was prescribed: 1-2 tabs PO q 6 hours PRN pain. Also Xarelto 10mg PO once a day starting tomorrow was prescribed to help prevent a blood clot as patient has history of left lower extremity DVT. He is to follow up with me within 1 week or sooner if needed. Post operative xrays were obtained in the recovery room, 3 views right foot which confirmed 2nd metatarsal osteotomy with fixation present, screws intact and alignment good. 2nd MTPJ in good position. No complications seen. Grafts/Implants Used: Arthrex FT compression screw, 2 x snap off screws, 0 Fiberwire - Complications None
--- NOTE | 2019-12-25 16:10 | RAD_ITS ---
STUDY: X-RAY - RIGHT FOOT CLINICAL: Male, 69 years old. post op, fusion correction of 2nd hammer toe, 2nd metatarsal osteotomy with repair of 2nd metatarsal phalangeal TECHNIQUE: 3 view(s) of the foot. COMPARISON: None. FINDINGS: Normal talus, calcaneus, and tarsal bones. Normal visualized subtalar, talonavicular, calcaneocuboid, tarsal and tarsometatarsal articulations. There are 2 fixation screws through the second metatarsal head., Remainder of the metatarsi are normal . Normal metatarsophalangeal joint of the great toe. Normal tibial and fibular sesamoid bones. Normal interphalangeal joint of the great toe. Normal phalanges of the great toe. Mild degenerative disease at the second metatarsophalangeal joint, otherwise normal third through fifth metatarsophalangeal joints. There is thinning involving the phalanges of the second toe otherwise normal interphalangeal joints and phalanges throughout the remainder of the third through fifth lesser toes. The soft tissue structures are unremarkable. There is no demonstrated fracture. RAD/Foot min 3 Views IMPRESSION: Postoperative changes as described above with no acute fracture or subluxation. Electronically Signed: Funmilayo German MD at 2:29 EST , Service support ,
== END 2019-12-25 17:26 | disposition home or self-care (01) ==
LOC: SDC 12:22 → AC 12:26
PROVIDERS: PCP Family Medicine; Referring Provider Podiatrist; Visit Provider Podiatrist
PROC: (CPT 28285; principal; 2019-12-25 13:45)
DX: M20.41 Other hammer toe(s) (acquired), right foot (principal); S93.691A Other sprain of right foot, initial encounter; M77.51 Other enthesopathy of right foot and ankle; G57.81 Other specified mononeuropathies of right lower limb; E66.9 Obesity, unspecified; Z68.30 Body mass index [BMI] 30.0-30.9, adult; I10 Essential (primary) hypertension; M85.80 Other specified disorders of bone density and structure, unspecified site; I25.10 Atherosclerotic heart disease of native coronary artery without angina pectoris; E78.00 Pure hypercholesterolemia, unspecified; M19.90 Unspecified osteoarthritis, unspecified site; Z85.46 Personal history of malignant neoplasm of prostate; Z86.718 Personal history of other venous thrombosis and embolism; Z87.442 Personal history of urinary calculi; Z79.01 Long term (current) use of anticoagulants; Z79.899 Other long term (current) drug therapy
CPT/HCPCS: 28285; 28308; 64776; 73630; 76000; 88304; 88305; 88311; C1713; C1776; J7120

== ENCOUNTER 2020-12-18 14:44 | Emergency (ER) | payer OTHER, SELFPAY ==
[2020-05-31 16:36] VITALS: BMI 29.4
[2020-12-18 14:44] VITALS: BP 142/82; PULSE 84; RESP 16; TEMP 36.4; O2SAT 96; BMI 29.2
--- NOTE | 2020-12-18 14:59 | CT_ITS ---
STUDY: CT CERVICAL SPINE WITHOUT CONTRAST REASON FOR EXAM: Male, 70 years old. FALL ONTO RIGHT SIDE RADIATION DOSAGE (If Supplied By Facility): CTDIvol = ( 18.24 ) mGy, DLP = ( 317.60 ) mGycm TECHNIQUE: High resolution transaxial imaging was performed without contrast material. Sagittal and coronal images were reconstructed. Individualized dose optimization techniques were used for this CT. COMPARISON: None FINDINGS: Normal craniovertebral junction. Pronounced narrowing of the predental space. Normal lateral atlantoaxial articulations. Normal odontoid process. Normal cervical lordosis. Normal vertebral bodies and posterior osseous elements. C2-3: Normal endplates. Normal disc height and morphology. Normal central canal and intervertebral neuroforamina. C3-4: Normal endplates. Normal disc height and morphology. Normal central canal and intervertebral neuroforamina. C4-5: Normal endplates. Normal disc height and morphology. Normal central canal and intervertebral neuroforamina. C5-6: Anterior and posterior marginal spurs. Pronounced disc space height narrowing with endplate sclerosis. Normal central canal and intervertebral neural foramina. C6-7: Mild disc space height narrowing with degenerative vacuum phenomenon and endplate sclerosis. Normal central canal and intervertebral neural foramina. C7-T1: Normal endplates. Normal disc height and morphology. Normal central canal and intervertebral neuroforamina. T1-T2: Normal endplates. Normal disc height and morphology. Normal central canal and intervertebral neural foramina. T2-T3: Normal T2 inferior endplate. Minimal anterior wedging of the T3 superior endplate accounting for increased anterior disc space height. The anterior superior corner of the T3 superior endplate is not included in the scan. Normal central canal and intervertebral neural foramina. Normal visualized soft tissue structures. CT/Spine Cervical without Contras IMPRESSION: 1. No CT evidence of acute fracture or malalignment of the cervical spine and the craniocervical junction. 2. Minimal anterior wedging of T3 superior endplate accounting for increased anterior T2-T3 disc space height. This may not be recent but the study is limited since the T3 superior endplate is not completely included in the scan. Electronically Signed: Lewis Reed MD at 15:44 EST , Service support ,
--- NOTE | 2020-12-18 14:59 | CT_ITS ---
STUDY: CT CHEST WITHOUT CONTRAST REASON FOR EXAM: Male, 70 years old. FALL ONTO RIGHT SIDE RADIATION DOSAGE (If Supplied By Facility): CTDIvol = ( 17.96 ) mGy, DLP = ( 762.84 ) mGycm TECHNIQUE: Transaxial imaging was performed without the administration of intravenous contrast material. Multiplanar coronal and sagittal images were reformatted. Individualized dose optimization techniques were used for this CT. COMPARISON: None. FINDINGS: The lungs are normal. There is no demonstrated pleural abnormality. Normal heart and pericardium. There are calcifications of the coronary arteries. Normal mediastinum. Normal hilar regions. Normal unenhanced pulmonary arteries. Mild atherosclerosis of the thoracic aorta. There are degenerative changes of the visualized cervical and thoracic spine with mildly exaggerated thoracic kyphosis. There are old right rib fractures. No acute rib fractures seen. There are surgical clips of the right upper abdomen. CT/Chest without Contrast IMPRESSION: 1. No pleural effusion or pneumothorax. No demonstrated acute rib fracture. Electronically Signed: William Rodriguez MD ([place]) at 16:10 EST , Service support ,
--- NOTE | 2020-12-18 15:00 | ED.DCSUM_ITS ---
History of Present Illness Chief Complaint: Fall Informant: Patient Onset: Today Narrative: 70-year-old male presents with injury sustained from a fall. Patient was snowblowing when he stepped off to the side falling to the right landing on right wrist and shoulder. He notes pain with movement of the shoulder. No pain with movement of the elbow or the wrist. He notes pain along the right aspect of his chest. Worse with breathing and movement. He denies any injuries of the lower extremities. He denies any head pain. He notes some discomfort on the right side of his neck. No hematuria since the fall. No change in cough or hemoptysis. Eyes striking his head/loss of consciousness/confusion. He denies being on any blood thinners. 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 Underwent a radical prostatectomy for prostate cancer. Smoking Status: Never smoker Drugs: None - Family History Maternal Family History: Family History (Last Reviewed 05/31/20 @ 17:[address] Elpidio Arias MD) Father CAD (coronary artery disease) CVA (cerebral vascular accident) Myocardial infarction, Onset Age: 50 Other Family history of heart disease Family History: Reports: - - His mother in her sleep presumably of a myocardial infarction Paternal Family History: Family History (Last Reviewed 05/31/20 @ 17:[address] Elpidio Arias MD) Father CAD (coronary artery disease) CVA (cerebral vascular accident) Myocardial infarction, Onset Age: 50 Other Family history of heart disease Family History: Reports: - - His father had an OR in his late 40s. Sibling Family History: Family History (Last Reviewed 05/31/20 @ 17:[address] Elpidio Arias MD) Father CAD (coronary artery disease) CVA (cerebral vascular accident) Myocardial infarction, Onset Age: 50 Other Family history of heart disease Family History: Reports: - - He has a brother who of HIV Review of Systems General: Denies: Chills, Fever, Sweats Eyes: Denies: Visual changes - bilaterally, Diplopia ENT: Denies: Rhinorrhea, Sore throat Cardiovascular: Reports: Chest pain. Denies: Palpitations Respiratory: Denies: Dyspnea, Cough, Dyspnea on exertion Gastrointestinal: Denies: Abdominal pain, Nausea, Vomiting, Diarrhea, Melena, Hematochezia Genitourinary: Denies: Dysuria, Hematuria, Frequency Musculoskeletal: Reports: Extremity Pain. Denies: Back pain Skin: Denies: Rash, Wounds Neurological: Denies: Headache, Weakness, Numbness Physical Exam Vital Signs/Narrative: Vital Signs Temp Pulse Resp BP Pulse Ox 12/18/20 14:44 97.6 F L 84 16 142/82 H 96 Inital Vital Signs reviewed: Yes General: Well nourished, Well developed, No Acute Distress Head: Normocephalic, Atraumatic Eyes: Perrl, EOMI ENT: Moist mucous membranes, No rhinorrhea Neck: Supple, - - Mild tenderness palpation of the right paraspinal musculature of the cervical spine. Cardiovascular: Regular rate, Regular rhythm, No murmurs Respiratory: No distress, CTA bilaterally, Chest tenderness - Tenderness to palpation along the right mid axillary and anterior chest sutton. No crepitance or deformity. Abdomen: Soft, Nontender, Nondistended, Normal bowel sounds Back: Nontender, Normal Inspection Extremities: Tenderness - Tender palpation over the proximal humerus. Limited range of motion secondary to pain. No AC tenderness or clavicular tenderness. No scapular tenderness. Skin: Normal color, No rash Neurological: Alert, Oriented x3, Cranial nerves II-XII grossly intact, Normal Strength, Normal Sensation Psychological: Normal affect, Normal Mood Diagnostic/Tx/Re-eval Clinical Impression(s) from Imaging Studies Cervical Spine CT 12/18/20 14:[address]: [address] evidence of acute fracture or malalignment of the cervical spine and the craniocervical junction. 2. Minimal anterior wedging of T3 superior endplate accounting for increased anterior T2-T3 disc space height. This may not be recent but the study is limited since the T3 superior endplate is not completely included in the scan. Electronically Signed: Lewis Reed MD at 15:44 EST , Service support , Chest CT 12/18/20 14:59 IMPRESSION: 1. No pleural effusion or pneumothorax. No demonstrated acute rib fracture. Electronically Signed: William Rodriguez MD ([place]) at 16:10 EST , Service support , Shoulder X-Ray 12/18/20 15:28 IMPRESSION: Normal x-ray examination of the shoulder. Electronically Signed: Lewis Reed MD at 15:47 EST , Service support , - Medical Decision Making My interpretation of the plain films of the right shoulder are negative for fracture. Radiology concurs. Out of concern for rib fracture and pneumothorax a CT chest was ordered which was negative for fracture and pneumothorax and pulmonary contusion. Due to the neck pain CT of the cervical spine was obtained was also negative for fracture in the cervical region. Patient was given a dose of Toradol and Tylenol. I will write for him to have pain medication at home. Pat he is to expect soreness to increase today and into tomorrow. Return if worsening or concerns. ED Disposition - Plan for ED Patient: Disposition: Home or Assisted Living Diagnosis: Fall, Chest wall contusion, Contusion of right shoulder Instructions: ED Chest Wall Contusion, ED Shoulder Contusion Prescriptions: Hydrocodone Bitart/Apap 5-325 [[place] 5MG-325MG] 1 tab PO Q6H PRN PRN 3 Days #10 tab PRN Reason: Pain Prescription Printed Referrals: Lincoln Henning MD [Primary Care Provider] - 1 Week
[2020-12-18] MEDS: Acetaminophen 500 MG Tablet 1000 MG PO (15:10)
[2020-12-18] MEDS: Ketorolac 30 MG/ML Syringe IM (15:11)
--- NOTE | 2020-12-18 15:28 | RAD_ITS ---
STUDY: X-RAY - RIGHT SHOULDER REASON FOR EXAM: Male, 70 years old. Fall while snow blowing, right shoulder pain and rib pain TECHNIQUE: 3 view(s) of the shoulder. COMPARISON: None. FINDINGS: Normal glenohumeral articulation. Normal acromioclavicular joint. Normal acromion. Normal humeral head and visualized proximal humerus. The soft tissue structures are unremarkable. Normal visualized pulmonary apex. RAD/Shoulder min 2 Views IMPRESSION: Normal x-ray examination of the shoulder. Electronically Signed: Lewis Reed MD at 15:47 EST , Service support ,
== END 2020-12-18 16:40 | disposition home or self-care (01) ==
PROVIDERS: Emergency Provider Emergency Medicine; PCP Family Medicine
DX: S40.011A Contusion of right shoulder, initial encounter (principal); S20.211A Contusion of right front wall of thorax, initial encounter; W19.XXXA Unspecified fall, initial encounter; Y93.29 Activity, other involving ice and snow; Y92.9 Unspecified place or not applicable; E78.5 Hyperlipidemia, unspecified; I25.10 Atherosclerotic heart disease of native coronary artery without angina pectoris; Z85.46 Personal history of malignant neoplasm of prostate; Z90.79 Acquired absence of other genital organ(s); Z79.899 Other long term (current) drug therapy
CPT/HCPCS: 71250; 72125; 73030; 96372; 99283

== ENCOUNTER → 2021-06-14 15:52 | Outpatient (CLI) | payer OTHER, SELFPAY ==
--- NOTE | 2021-06-14 15:56 | CT_ITS ---
STUDY: CT LEFT FOOT REASON FOR EXAM: Male, 70 years old. NONUNION L 2ND METATARSAL RADIATION DOSAGE (If Supplied By Facility): CTDIvol = ( 15.35 ) mGy, DLP = ( 360.26 ) mGycm TECHNIQUE: Thin section transaxial imaging of the foot was obtained, with sagittal and coronal reconstructed images. Individualized dose optimization techniques were used for this CT. COMPARISON: X-ray 12/25/2019 FINDINGS: Normal talus, calcaneus, and tarsal bones. Normal visualized tibiotalar, subtalar, talonavicular, calcaneocuboid, tarsal and tarsometatarsal articulations. The patient is status post second tarsal metatarsal joint arthrodesis with a dorsal plate and screws and bony bridging. There is a transverse fracture of the base of the second metatarsal bone which appears ununited. Normal metatarsophalangeal joint of the great toe. Normal tibial and fibular sesamoid bones. Normal interphalangeal joint of the great toe. Normal phalanges of the great toe. Normal second through fifth metatarsophalangeal joints. Normal interphalangeal joints and phalanges of the lesser toes. The soft tissue structures are unremarkable. 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 Electronically Signed: Varun Solis MD at 17:40 EDT Tel , Service support ,
== END ==
PROVIDERS: PCP Family Medicine; Referring Provider Podiatrist; Visit Provider Podiatrist
DX: Z98.890 Other specified postprocedural states (principal)
CPT/HCPCS: 73700

== ENCOUNTER → 2021-08-14 07:05 | Outpatient (CLI) | payer OTHER, SELFPAY ==
--- NOTE | 2021-08-14 11:09 | STRESSREP ---
Stress Test Report Pharmacologic myocardial perfusion stress test. 71-year-old man with a history of chest pain hypertension and cardiomyopathy. Resting EKG demonstrates normal sinus rhythm with a rate of 59 bpm first-degree AV block is noted resting blood pressure is 134/82 mmHg. 0.4 mg of regadenoson was infused per usual protocol followed by rapid intravenous saline flush injection continuous EKG monitoring was performed. The maximum heart rate attained was 75 bpm which was 50% of max infected heart rate the maximum workload was 1 metabolic equivalent. At rest there were no ST or T wave changes noted to suggest abnormal flow reserve. The final blood pressure was 132/76 mmHg. Myocardial perfusion protocol. 11.9 mCi of technetium 99m sestamibi was injected at rest. 0.4 mg of regadenoson was infused per usual protocol. At peak infusion 34.3 mCi of technetium 99m sestamibi was injected stress images were obtained stress and rest images were reconstructed and compared in the short axis vertical long horizontal long axis. Gated images were also obtained. Perfusion SPECT analysis: Review of the stress images demonstrate normal uptake of tracer noted in all areas of the myocardium. The resting images similarly demonstrate normal uptake of tracer noted in all areas of the myocardium. No areas of reversibility are noted suggest ischemia and no previous infarct is noted. Gated SPECT analysis: The gated ejection fraction is 65%. Conclusion: Normal pharmacologic myocardial perfusion stress test. Preserved ejection fraction.
== END ==
PROVIDERS: PCP Family Medicine; Referring Provider Nurse Practitioner Gerontology; Visit Provider Nurse Practitioner Gerontology
DX: I25.119 Atherosclerotic heart disease of native coronary artery with unspecified angina pectoris (principal); R07.9 Chest pain, unspecified
CPT/HCPCS: 78452; 93017; A9500; A4216; J2785

== ENCOUNTER 2022-07-27 11:25 | Emergency (ER) | payer MEDICARE, SELFPAY ==
[2022-07-27 11:25] VITALS: BP 116/81; PULSE 77; RESP 16; TEMP 36.6; O2SAT 94; BMI 29.8
[2022-07-27 11:50] VITALS: BP 134/84; PULSE 74; RESP 12; O2SAT 92
[2022-07-27 11:51] VITALS: O2SAT 94
--- NOTE | 2022-07-27 12:38 | EX.ED.VIS.UR ---
HPI HPI - URI History of Present Illness Chief Complaint: Shortness of Breath Narrative Narrative: 71-year-old male presenting with a mild cough which is not productive of sputum, feeling of weakness, subjective fever, body aches. He states he just came from the urgent care where he was tested for COVID-19 but the send out. He does not know if he has this. Patient states he had a cardiology visit yesterday and everything was good. He states that he developed a mild cough throughout the day yesterday. He states he thought he might of had a fever last night but he did not check a temperature. He states he just wanted to go to bed he does state that he cannot sleep. He has not had any nausea but does admit to one episode of posttussive emesis. ROS ROS ED Constitutional Constitutional ED: Reports chills and subjective Eyes Eyes: Denies change in vision or diplopia ENT ENT ED: Denies rhinorrhea or sore throat Cardiovascular Cardiovascular: Denies chest pain Respiratory/Chest Respiratory/Chest: Reports cough and dyspnea Gastrointestinal Gastrointestinal: Denies abdominal pain or constipation Genitourinary Genitourinary ED: Denies dysuria or hematuria Musculoskeletal Musculoskeletal: Denies arthralgias or back pain Integumentary Denies abscess Neurologic Neurologic: Reports headache(s); Denies paresthesias Psychiatric Psychiatric: Denies anxiety or depression [facility] History Atherosclerosis of coronary artery without angina pectoris 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 Chest pain Family history of heart disease GERD (gastroesophageal reflux disease) History of deep vein thrombosis of lower extremity HLD (hyperlipidemia) Non-ischemic cardiomyopathy Home Medications multivitamin,br-avap-[id number] 27 mg-0.4 mg tablet 1 tab PO DAILY 10/28/15 [History Last Taken Unknown] ascorbic acid (vitamin C) 500 mg capsule 500 mg PO DAILY 05/31/20 [History Last Taken Unknown] cholecalciferol (vitamin D3) 25 mcg (1,000 unit) capsule 25 mcg PO DAILY 05/31/20 [History Last Taken Unknown] hydrochlorothiazide 25 mg tablet 25 mg PO DAILY 07/18/21 [History Last Taken Unknown] atorvastatin 10 mg tablet 10 mg PO DAILY 07/26/22 [History Last Taken Unknown] pantoprazole 40 mg tablet,delayed release 40 mg PO DAILY 07/26/22 [History Last Taken Unknown] sertraline 50 mg tablet (Zoloft) 50 mg PO DAILY 07/26/22 [History Last Taken Unknown] albuterol sulfate 90 mcg/actuation aerosol inhaler (Ventolin HFA) 1 - 2 puff inhalation Q4H PRN PRN Wheezing #6.7 grams 07/27/22 [Rx Last Taken Unknown] cyclobenzaprine 5 mg tablet 5 mg PO DAILY 07/27/22 [History Last Taken Unknown] cyclosporine 0.05 % eye drops in a dropperette 4 drp EACH EYE BID 07/27/22 [History Last Taken Unknown] naproxen 500 mg tablet 500 mg PO BID 07/27/22 [History Last Taken Unknown] prednisone 50 mg tablet 50 mg PO DAILY 5 days #5 tabs 07/27/22 [Rx Last Taken Unknown] Allergy/AdvReac Type Severity Reaction Status Date / Time No Known Allergies Allergy Verified 07/27/22 11:54 Family History Father CAD (coronary artery disease) CVA (cerebral vascular accident) Myocardial infarction, Onset Age: 50 Other Family history of heart disease Surgical History History of foot surgery (12/2019) History of left heart catheterization (12/07/11) History of tonsillectomy History of total adrenalectomy pheochromocytoma excision Social History Smoking Status: Never smoker alcohol intake: current substance use type: does not use EXAM Physical Exam Const Vital Signs: 07/27/22 11:25 07/27/22 11:50 07/27/22 11:51 Temperature 97.8 F Temperature Source Temporal Pulse Rate 77 74 Respiratory Rate 16 12 Respiratory Effort Normal Non-Labored Short of Breath Respiratory Depth Normal Respiratory Pattern Normal Blood Pressure 116/81 H 134/84 H Blood Pressure Mean 92 100 Pulse Ox 94 92 Oxygen Delivery Method Room Air Room Air Room Air 07/27/22 13:03 07/27/22 13:40 Temperature Temperature Source Pulse Rate 77 74 Respiratory Rate 16 22 H Respiratory Effort Respiratory Depth Respiratory Pattern Blood Pressure 136/66 H Blood Pressure Mean 89 Pulse Ox 95 Oxygen Delivery Method Room Air Positive well nourished General Appearance ED: NAD; Negative for pallor HEENT Reports moist mucous membranes normocephalic Eyes PERRL and EOMs intact bilaterally Resp normal respiratory effort Resp Narrative: Faint expiratory wheezes bilaterally Auscultation: wheezes Cardio Rate: regular rate Rhythm: regular rhythm GI non-tender Extremity normal to inspection Neuro oriented x3 and CN's II-XII intact bilaterally Psych mental status grossly normal Skin General Skin Exam: Negative for jaundice or pallor MDM MDM MDM Narrative Medical decision making narrative: Patient presenting with cough and generally feeling unwell. I tested him for COVID with a rapid edge and this is negative. He has a PCR pending. I did check a chest x-ray which on my interpretation is negative for acute process. Radiologist does agree. Patient had some scant wheezing noted on exam and was given a DuoNeb and feels improved at this point. He is given prednisone here in the ED as well. He will be given short option for albuterol inhaler and prednisone for home. Return precautions were discussed. Impression: 1. Cough 2. Viral Lab Data Attestation: I reviewed the patient's lab results. Radiography Diagnostic Testing: Clinical Impression(s) from Imaging Studies Chest X-Ray 07/27/22 12:50 IMPRESSION: Hyperinflation. The lungs are clear. Electronically Signed: Oneal Connor MD at 13:39 EDT , Discharge Plan Triage Chief Complaint: Shortness of Breath ED Provider: Jayden Carlson Dx/Rx/DC Orders Instructions: ED Bronchitis with Wheezing (Adult) Prescriptions: New albuterol sulfate [Ventolin HFA] 90 mcg/actuation HFA aerosol inhaler 1 - 2 puff inhalation Q4H PRN PRN (Reason: Wheezing) Qty: 6.7 0RF prednisone 50 mg tablet 50 mg PO DAILY 5 Days Qty: 5 0RF No Action ascorbic acid (vitamin C) 500 mg capsule 500 mg PO DAILY cholecalciferol (vitamin D3) 25 mcg (1,000 unit) capsule 25 mcg PO DAILY hydrochlorothiazide 25 mg tablet 25 mg PO DAILY atorvastatin 10 mg tablet 10 mg PO DAILY Label Comments: TAKE 1 TABLET BY MOUTH EVERY DAY pantoprazole 40 mg tablet,delayed release (DR/EC) 40 mg PO DAILY Label Comments: TAKE 1 TABLET BY MOUTH TWICE A DAY sertraline [Zoloft] 50 mg tablet 50 mg PO DAILY Label Comments: TAKE 1 TABLET BY MOUTH EVERY DAY multivitamin,md-oasw-plonirjp 1 TABLET tablet 1 tab PO DAILY naproxen 500 mg tablet 500 mg PO BID cyclobenzaprine 5 mg tablet 5 mg PO DAILY cyclosporine 0.05 % dropperette 4 drp EACH EYE BID Label Comments: INSTILL 1 DROP INTO BOTH EYES TWICE A DAY Primary Care Provider: Lincoln Henning Referrals: Lincoln Henning MD [Primary Care Provider] - Disposition Disposition: Home, Self Care
--- NOTE | 2022-07-27 12:50 | RAD_ITS ---
STUDY: X-RAY CHEST REASON FOR EXAM: Male, 71 years old. Chest pain. Cough. TECHNIQUE: Single AP portable view of the chest. COMPARISON: Comparison is made with prior study dated 07/31/2018. FINDINGS: EKG electrodes are seen. Hyperinflation. The lungs are clear. There is no demonstrated pleural abnormality. Normal size heart. Normal mediastinum and efrain. Normal visualized pulmonary arteries. There is atherosclerotic tortuosity of the aortic arch and descending thoracic aorta. There are diffuse degenerative changes of the visualized thoracic spine. Normal visualized ribs, clavicles, and shoulders. There is no demonstrated abnormality of the visualized soft tissue structures of the upper abdomen. RAD/Chest 1 View (Portable) IMPRESSION: Hyperinflation. The lungs are clear. Electronically Signed: Oneal Connor MD at 13:39 EDT ,
[2022-07-27] MEDS: Ipratropium/Albuterol Sulfate 3 ML AMPUL.NEB INHALATION (13:00)
[2022-07-27 13:03] VITALS: PULSE 77; RESP 16
[2022-07-27 13:40] VITALS: BP 136/66; PULSE 74; RESP 22; O2SAT 95
[2022-07-27 14:07] VITALS: BP 126/72; PULSE 83; RESP 22; O2SAT 92
[2022-07-27] MEDS: predniSONE 20 MG Tablet 60 MG PO (14:08)
== END 2022-07-27 14:14 | disposition home or self-care (01) ==
PROVIDERS: Emergency Provider Student in an Organized Health Care Education/Training Program; PCP Family Medicine; Visit Provider Student in an Organized Health Care Education/Training Program
DX: R05.9 Cough, unspecified (principal); I42.8 Other cardiomyopathies; R53.1 Weakness; M79.10 Myalgia, unspecified site; I25.10 Atherosclerotic heart disease of native coronary artery without angina pectoris; K21.9 Gastro-esophageal reflux disease without esophagitis; E78.5 Hyperlipidemia, unspecified; Z86.718 Personal history of other venous thrombosis and embolism; Z79.899 Other long term (current) drug therapy
CPT/HCPCS: 71045; 87811; 94640; 99283; A4216

== ENCOUNTER 2023-01-15 09:51 | Emergency (ER) | payer MEDICARE, SELFPAY ==
[2023-01-15 09:52] VITALS: BP 138/64; PULSE 90; RESP 18; TEMP 35.7; O2SAT 90; BMI 30.3
[2023-01-15 10:51] VITALS: BP 138/83; PULSE 62; RESP 16; O2SAT 97
[2023-01-15 11:00] VITALS: BP 136/71; PULSE 64; RESP 18; O2SAT 98
--- NOTE | 2023-01-15 11:00 | CT_ITS ---
STUDY: CT BRAIN WITHOUT CONTRAST REASON FOR EXAM: Male, 72 years old. Fall/trauma, syncope RADIATION DOSAGE (If Supplied By Facility): CTDIvol = ( 44.99 ) mGy, DLP = ( 863.60 ) mGycm TECHNIQUE: Transaxial CT imaging of the brain was performed without administration of intravenous contrast material. Individualized dose optimization techniques were used for this CT. COMPARISON: No relevant priors. FINDINGS: Normal soft tissue structures. Normal calvarium. There is mild cerebral atrophy with widening of the extra-axial spaces and ventricular dilatation. There are areas of decreased attenuation within the white matter tracts of the supratentorial brain, consistent with microvascular disease changes. Tiny lacunar lesions in both basal ganglia. These most likely are old. Normal brainstem. Normal cerebellum. There is no intracranial hemorrhage. There are no findings of an acute ischemic infarction. Atherosclerotic calcification of the cavernous portions of the internal carotid arteries bilaterally. Atherosclerotic calcification of the vertebral arteries bilaterally. Normal visualized paranasal sinuses. CT/Brain/Head without Contrast IMPRESSION: Chronic involutional changes of the brain. Electronically Signed: Oneal Connor MD at 11:36 EST ,
--- NOTE | 2023-01-15 11:01 | ED.VIS.FALL ---
HPI HPI - Fall History of Present Illness Chief Complaint: Head Injury Informant: patient Narrative Narrative: Patient states yesterday, he was putting a bowl down for a week, he stood up into a shelf hitting the front of his head, this caused him to fall backward against the ground hitting the back of his head, and he lost consciousness for a brief period of time. He was by himself. He states this was yesterday evening. He went to urgent care today because in the process of this he injured his left shoulder which was not hurting prior to this fall. They did some x-rays of his left shoulder, they said that the x-ray results will be available to him later, and when they found out about his head injury, they sent him here to the ER. He states he has a headache, no nausea or vomiting. No changes in his vision compared to prior to the fall, he is able to walk without difficulty denies any neurologic symptoms in his extremities. He denies any other injuries. He is having trouble moving his left shoulder with regards to pain in any direction. 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 Chest pain Family history of heart disease GERD (gastroesophageal reflux disease) History of deep vein thrombosis of lower extremity HLD (hyperlipidemia) Non-ischemic cardiomyopathy Home Medications multivitamin,ip-aixk-majgttfc 27 mg-0.4 mg tablet 1 tab PO DAILY 10/28/15 [History Last Taken Unknown] ascorbic acid (vitamin C) 500 mg capsule 500 mg PO DAILY 05/31/20 [History Last Taken Unknown] cholecalciferol (vitamin D3) 25 mcg (1,000 unit) capsule 25 mcg PO DAILY 05/31/20 [History Last Taken Unknown] hydrochlorothiazide 25 mg tablet 25 mg PO DAILY 07/18/21 [History Last Taken Unknown] atorvastatin 10 mg tablet 10 mg PO DAILY 07/26/22 [History Last Taken Unknown] pantoprazole 40 mg tablet,delayed release 40 mg PO DAILY 07/26/22 [History Last Taken Unknown] sertraline 50 mg tablet (Zoloft) 50 mg PO DAILY 07/26/22 [History Last Taken Unknown] albuterol sulfate 90 mcg/actuation aerosol inhaler (Ventolin HFA) 1 - 2 puff inhalation Q4H PRN PRN Wheezing #6.7 grams 07/27/22 [Rx Last Taken Unknown] cyclobenzaprine 5 mg tablet 5 mg PO DAILY 07/27/22 [History Last Taken Unknown] cyclosporine 0.05 % eye drops in a dropperette 4 drp EACH EYE BID 07/27/22 [History Last Taken Unknown] naproxen 500 mg tablet 500 mg PO BID 07/27/22 [History Last Taken Unknown] prednisone 50 mg tablet 50 mg PO DAILY 5 days #5 tabs 07/27/22 [Rx Last Taken Unknown] hydrocodone-acetaminophen 5-325mg 5mg-325mg 1 tab PO Q6H PRN pain 2 days #8 TABLETS 01/15/23 [Rx Last Taken Unknown] Allergy/AdvReac Type Severity Reaction Status Date / Time No Known Allergies Allergy Verified 01/15/23 11:14 Family History Father CAD (coronary artery disease) CVA (cerebral vascular accident) Myocardial infarction, Onset Age: 50 Other Family history of heart disease Surgical History History of foot surgery (12/2019) History of left heart catheterization (12/07/11) History of tonsillectomy History of total adrenalectomy pheochromocytoma excision Social History Smoking Status: Never smoker alcohol intake: current substance use type: does not use ROS ROS ED Constitutional Constitutional ED: Denies chills or fever(s) Eyes Eyes: Denies change in vision or diplopia ENT ENT ED: Denies rhinorrhea or sore throat Cardiovascular Cardiovascular: Denies chest pain or palpitations Respiratory/Chest Respiratory/Chest: Denies cough or dyspnea Gastrointestinal Gastrointestinal: Denies abdominal pain, diarrhea, nausea or vomiting Genitourinary Genitourinary ED: Denies dysuria or hematuria Musculoskeletal Musculoskeletal: Reports extremity pain; Denies back pain or neck pain Integumentary Denies abscess or rash Neurologic Neurologic: Reports headache(s); Denies paresthesias or weakness Psychiatric Psychiatric: Denies anxiety or suicidal thoughts EXAM Physical Exam Const Vital Signs: 01/15/23 09:52 01/15/23 11:06 01/15/23 10:51 Temperature 96.2 F L Temperature Source Temporal Pulse Rate 90 62 Respiratory Rate 18 16 Respiratory Effort Normal Non-Labored Respiratory Depth Normal Respiratory Pattern Normal Blood Pressure 138/64 H 138/83 H Blood Pressure Mean 88 101 Pulse Ox 90 98 97 Oxygen Delivery Method Room Air Room Air Room Air 01/15/23 11:00 Temperature Temperature Source Pulse Rate 64 Respiratory Rate 18 Respiratory Effort Respiratory Depth Respiratory Pattern Blood Pressure 136/71 H Blood Pressure Mean 92 Pulse Ox 98 Oxygen Delivery Method Room Air Positive well nourished and well developed General Appearance ED: well developed and NAD HEENT Reports moist mucous membranes HEENT Narrative: Mild tenderness left high occipital/parietal scalp, no traumatic hematoma, no crepitance or depression, no lacerations or other obvious evidence of trauma. No other areas of scalp trauma. No facial tenderness or trauma. No morfin sign, raccoon eyes, CSF otorhinorrhea. normocephalic Eyes PERRL and EOMs intact bilaterally Neck full ROM and supple Resp normal respiratory effort and clear to auscultation bilaterally Cardio regular rate, regular rhythm and no murmurs GI non-tender and non-distended Auscultation: normoactive bowel sounds Palpation: soft Back/Spine General Back: other FROM ; Negative for tenderness Extremity normal to inspection Extremity Narrative: Tender in the mid left clavicle. No deformities. No tenderness at the acromioclavicular joint. No acromion, scapular, long head biceps, or subacromial tenderness. No deformities. Limited range of motion of the left shoulder due to pain but able to do short arc ranging. No other tender joints. General Extremety ED: Yes tenderness; Negative for edema or pulses abnormal General Extremity: Negative for edema or pulses abnormal Neuro oriented x3, CN's II-XII intact bilaterally and no sensory deficits noted Cedric Coma Scale: document GCS findings Spontaneous Obeys Commands Oriented 15 Sensorium / Orientation: awake and alert Motor Exam: strength 5/5 throughout Skin no rashes or lesions noted and no wounds MDM MDM MDM Narrative Medical decision making narrative: CT head obtained, images appear unremarkable. My interpretation of the CT agrees with that of the radiologist. I offered reimaging of the patient's left shoulder because he had x-rays at an outside facility and I am not able to view them. He declines and does not want them and would prefer to take a sling. Clinically I do not think he is dislocated, and that is his choice. I recommend outpatient follow-up. I gave him a prescription for some hydrocodone to use at night for pain as needed, he is driving himself home so none given here and he is okay with that. Radiography Diagnostic Testing: Clinical Impression(s) from Imaging Studies Brain CT 01/15/23 11:00 IMPRESSION: Chronic involutional changes of the brain. Electronically Signed: Oneal Connor MD at 11:36 EST , Discharge Plan Triage Chief Complaint: Head Injury Other Complaint: Fall Upper Extremity Injury ED Provider: Zacarias Avila Dx/Rx/DC Orders Clinical Impression: Closed head injury with brief loss of consciousness, Injury of left shoulder Instructions: ED Head Injury (Adult), ED Sling Prescriptions: New hydrocodone-acetaminophen [hydrocodone-acetaminophen] 5-325 mg tablet 1 tab PO Q6H PRN (Reason: pain) 2 Days Qty: 8 0RF No Action ascorbic acid (vitamin C) 500 mg capsule 500 mg PO DAILY cholecalciferol (vitamin D3) 25 mcg (1,000 unit) capsule 25 mcg PO DAILY hydrochlorothiazide 25 mg tablet 25 mg PO DAILY atorvastatin 10 mg tablet 10 mg PO DAILY Label Comments: TAKE 1 TABLET BY MOUTH EVERY DAY pantoprazole 40 mg tablet,delayed release (DR/EC) 40 mg PO DAILY Label Comments: TAKE 1 TABLET BY MOUTH TWICE A DAY sertraline [Zoloft] 50 mg tablet 50 mg PO DAILY Label Comments: TAKE 1 TABLET BY MOUTH EVERY DAY multivitamin,xo-cdbs-itpaltxj 1 TABLET tablet 1 tab PO DAILY naproxen 500 mg tablet 500 mg PO BID cyclobenzaprine 5 mg tablet 5 mg PO DAILY cyclosporine 0.05 % dropperette 4 drp EACH EYE BID Label Comments: INSTILL 1 DROP INTO BOTH EYES TWICE A DAY albuterol sulfate [Ventolin HFA] 90 mcg/actuation HFA aerosol inhaler 1 - 2 puff inhalation Q4H PRN PRN (Reason: Wheezing) Qty: 6.7 0RF prednisone 50 mg tablet 50 mg PO DAILY 5 Days Qty: 5 0RF Primary Care Provider: Lincoln Henning Referrals: Lincoln Henning MD [Primary Care Provider] - 3-5 Days if not improving Disposition Disposition: Home, Self Care
[2023-01-15 11:06] VITALS: O2SAT 98
[2023-01-15 13:52] VITALS: BP 126/83; PULSE 72; RESP 18; O2SAT 99
== END 2023-01-15 13:57 | disposition home or self-care (01) ==
PROVIDERS: Emergency Provider Emergency Medicine; PCP Family Medicine; Visit Provider Emergency Medicine
DX: S06.9X1A Unspecified intracranial injury with loss of consciousness of 30 minutes or less, initial encounter (principal); W18.09XA Striking against other object with subsequent fall, initial encounter; S40.912A Unspecified superficial injury of left shoulder, initial encounter; E78.5 Hyperlipidemia, unspecified; Z79.899 Other long term (current) drug therapy; K21.9 Gastro-esophageal reflux disease without esophagitis
CPT/HCPCS: 70450; 99284

== ENCOUNTER 2023-02-08 16:28 | Observation (INO) | payer MEDICARE, SELFPAY ==
[2023-02-08 16:29] VITALS: BP 127/71; PULSE 74; RESP 18; TEMP 35.5; O2SAT 99; BMI 30.5
[2023-02-08 16:40] VITALS: BMI 30.4
--- NOTE | 2023-02-08 16:53 | CT_ITS ---
STUDY: CT BRAIN WITHOUT CONTRAST REASON FOR EXAM: Male, 72 years old. double vision, TIA RADIATION DOSAGE (If Supplied By Facility): CTDIvol = ( 44.99 ) mGy, DLP = ( 812.98 ) mGycm TECHNIQUE: Transaxial CT imaging of the brain was performed without administration of intravenous contrast material. Individualized dose optimization techniques were used for this CT. COMPARISON: January 15, 2023. FINDINGS: Normal soft tissue structures. Normal calvarium. Minor calcific plaquing of the cavernous carotids Mild cortical atrophy and periventricular white matter ischemic changes. Probable old bilateral lacunar infarcts in the internal capsules. Normal brainstem. Normal cerebellum. There is no intracranial hemorrhage. There are no findings of an acute ischemic infarction. Postsurgical changes of the orbits Normal visualized paranasal sinuses. No significant change since prior study CT/Brain/Head without Contrast IMPRESSION: Mild cortical atrophy and periventricular white matter ischemic changes. Old bilateral lacunar infarcts If concern for acute infarct MRI recommended Electronically Signed: Dominick Belcher MD at 17:19 EDT ,
--- NOTE | 2023-02-08 16:54 | EKG12_ITS ---
Test Reason : NEURO S/SX Blood Pressure : / mmHG Vent. Rate : 066 BPM Atrial Rate : 066 BPM P-R Int : 196 ms QRS Dur : 098 ms QT Int : 424 ms P-R-T Axes : 072 -27 -21 degrees QTc Int : 444 ms Sinus rhythm with occasional Premature ventricular complexes Otherwise normal ECG Confirmed by JASMIN MENARD, ARIEL ([id number]), manager editorial FIFI HERNADEZ ([id number]) on 02/11/2023 2:17:24 PM Referred By: Confirmed By:ARIEL CASTELLANOS MD
--- NOTE | 2023-02-08 17:05 | RAD_ITS ---
STUDY: X-RAY CHEST REASON FOR EXAM: Male, 72 years old. chest pain TECHNIQUE: PA and lateral COMPARISON: July 27, 2022 FINDINGS: The lungs are clear and expanded. There is no demonstrated pleural abnormality. Normal size heart. Normal mediastinum and efrain. Normal visualized pulmonary arteries. Normal visualized aortic arch and descending thoracic aorta. Dorsal spine demonstrates degenerative change. Normal visualized ribs, clavicles, and shoulders. There is no demonstrated abnormality of the visualized soft tissue structures of the upper abdomen. RAD/Chest PA and Lateral IMPRESSION: No acute cardiopulmonary pathology.. Electronically Signed: Dominick Belcher MD at 17:21 EDT ,
[2023-02-08 17:12] LABS: Absolute Lymphocyte Count 2.41 X10^3/uL (0.83-4.51); Absolute Neutrophil Count 3.7 X10^3/uL (2.0-7.7); Basophil# 0.05 X10^3/uL; Basophil% 0.7 % (0-1); Eosinophil# 0.13 X10^3/uL; Eosinophils% 1.8 % (0-5); Hematocrit 48.6 % (40-54); Hemoglobin 16.2 g/dL (13.0-16.5); Lymphocyte # 2.41 X10^3/ul (0.83-4.51); Lymphocyte % 33.9 % (19-41); Mean Corp Hgb Conc 33.3 g/dL (32-36); Mean Corpuscular Hgb 31.1 pg (27.0-32.0); Mean Corpuscular Volume 93.3 fL (80-94); Mean Platelet Vol. 10.2 fl (6.2-12.0); Monocyte# 0.81 X10^3/uL; Monocyte% 11.4 % (0-10); NRBC Flagged by Analyzer 0 % (0-5); Neutrophil # 3.68 X10^3/uL (2.7-7.7); Neutrophil % 51.9 % (47-70); Platelet Count 224 K/mm3 (150-450); RBC Distribution Width CV 12.7 % (11.6-14.6); RBC Distribution Width SD 43.6 fl (35.1-43.9); Red Blood Count 5.21 M/mm3 (4.6-6.2); White Blood Count 7.1 K/mm3 (4.4-11.0)
[2023-02-08 17:25] LABS: Anion Gap 4 (5-15); BUN 17 mg/dL (7-18); BUN/Creat Ratio 14.7 RATIO (10-20); Calcium,Total 9.6 mg/dL (8.5-10.1); Chloride 104 mmol/L (98-107); Creatinine, Serum 1.16 mg/dL (0.70-1.30); EST Glomerular Filtration Rate 66 mL/min (>60); Est Glom Filt Rate - Afr Amer 79 mL/min (>60); Estimated Creatinine Clearance 58.56 ml/min; Glucose 118 mg/dL (74-106); Potassium 3.7 mmol/L (3.5-5.1); Sodium Level 139 mmol/L (136-145); Troponin-I HS (w/2H Reflex) 4 pg/mL (3.0-78.0)
[2023-02-08 17:30] LABS: Bedside Glucose 133 mg/dL (74-106)
--- NOTE | 2023-02-08 17:45 | EDS_ITS ---
HPI History of Present Illness Chief Complaint: Neuro S/Sx Informant: patient Narrative Narrative: Patient is a 72-year-old male with history of pheochromocytoma, coronary artery disease, hypertension hyperlipidemia presenting with double vision. Patient states he was working at home on the computer. He had lunch around noon and everything felt normal. Around 2:30 PM he got up and after he took a couple steps his right leg gave out. This caused him to fall however he was able to catch himself on some furniture and did not injure himself. While he was walking up the stairs just after that he noticed that when he looked in the yard everything was double from top to bottom. He states it was with both eyes open and with the left and right eye individually being closed. He called his preload supervisor, Dr. Rich, who did cataract surgery on him in November of this year. He had a full eye exam and was told everything looks normal from an eye standpoint. Was recommended come to the ER in case this could be a TIA/stroke. Does not have any close-up diplopia. He also notes the past few hours has had constant in the left side of his chest. Notes he has had pain like this in the past but cannot recall if it was associate with anything. States he had more pain when he had his pheochromocytoma and his blood pressure is out of control. States his father of a stroke at age 73 and is concerned because the patient is 72. 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 Chest pain Family history of heart disease GERD (gastroesophageal reflux disease) History of deep vein thrombosis of lower extremity HLD (hyperlipidemia) Non-ischemic cardiomyopathy Home Medications multivitamin,pc-tmte-vwhpuizr 27 mg-0.4 mg tablet 1 tab PO DAILY supplement 10/28/15 [History Last Taken 02/08/23] ascorbic acid (vitamin C) 500 mg capsule 500 mg PO DAILY supplement 05/31/20 [History Last Taken 02/08/23] cholecalciferol (vitamin D3) 25 mcg (1,000 unit) capsule 25 mcg PO DAILY suppplement 05/31/20 [History Last Taken 02/08/23] hydrochlorothiazide 25 mg tablet 25 mg PO DAILY 07/18/21 [History Last Taken Unknown] atorvastatin 10 mg tablet 10 mg PO DAILY 07/26/22 [History Last Taken Unknown] pantoprazole 40 mg tablet,delayed release 40 mg PO DAILY 07/26/22 [History Last Taken Unknown] sertraline 50 mg tablet (Zoloft) 50 mg PO DAILY 07/26/22 [History Last Taken Unknown] Allergy/AdvReac Type Severity Reaction Status Date / Time No Known Allergies Allergy Verified 02/08/23 16:29 Family History Father CAD (coronary artery disease) CVA (cerebral vascular accident) Myocardial infarction, Onset Age: 50 Other Family history of heart disease Surgical History History of foot surgery (12/2019) History of left heart catheterization (12/07/11) History of tonsillectomy History of total adrenalectomy pheochromocytoma excision Social History Smoking Status: Never smoker alcohol intake: current substance use type: does not use ROS ROS ED Constitutional Constitutional ED: Denies chills or fever(s) Eyes Eyes: Reports diplopia ENT ENT ED: Denies rhinorrhea or sore throat Cardiovascular Cardiovascular: Reports chest pain; Denies palpitations Respiratory/Chest Respiratory/Chest: Denies cough or dyspnea Gastrointestinal Gastrointestinal: Denies abdominal pain, nausea or vomiting Genitourinary Genitourinary ED: Denies dysuria or hematuria Musculoskeletal Musculoskeletal: Denies arthralgias or myalgias Integumentary Denies rash Neurologic Neurologic: Reports weakness and other Details: Right leg weakness ; Denies headache(s) or paresthesias Psychiatric Psychiatric: Denies anxiety Hematologic/Lymphatic Hematologic/Lymphatic: Denies easy bleeding or easy bruising EXAM Physical Exam Const Vital Signs: 02/08/23 16:29 02/08/23 18:09 02/08/23 18:39 Temperature 95.9 F L 98.1 F 98.1 F Temperature Source Temporal Oral Oral Pulse Rate 74 70 64 Respiratory Rate 18 16 18 Blood Pressure 127/71 H 121/83 H 137/87 H Blood Pressure Mean 89 95 103 Pulse Ox 99 96 97 Oxygen Delivery Method Room Air Room Air Room Air Positive well nourished and well developed General Appearance ED: well developed and NAD HEENT Reports moist mucous membranes atraumatic Eyes PERRL and EOMs intact bilaterally Eyes Narrative: No visual field cut Neck supple and no JVD Chest Wall inspection of chest normal and palpation of chest normal Chest Narrative: No chest wall tenderness to palpation Resp normal respiratory effort and clear to auscultation bilaterally Cardio no murmurs Rate: regular rate Rhythm: regular rhythm GI normal to inspection, nondistended, normoactive bowel sounds Extremity normal to inspection General Extremety ED: Negative for deformity or edema General Extremity: Negative for deformity or edema Neuro oriented x3, CN's II-XII intact bilaterally and no sensory deficits noted Sensorium / Orientation: alert Motor Exam: strength 5/5 throughout Psych mental status grossly normal Skin no wounds NIHSS NIHSS Initial: 1a Level of Consciousness: 0 1b LOC Questions (Score 2 if aphasic/stupor): 0 1c LOC Commands (Only score 1st attempt): 0 2 Best Gaze (If aphasic, use reflexive mvmts.): 0 3 Visual: 0 4 Facial Palsy: 0 5 Motor Arm Right (UN = amputation/fusion): 0 5 Motor Arm Left: 0 6 Motor Leg Right: 0 6 Motor Leg Left: 0 7 Limb ataxia (Only + if out of proportion): 0 8 Sensory (Aphasia/stupor=0 or 1, coma=2): 0 9 Best Language: 0 10 Dysarthria (mute, coma=2, intubated=UN): 0 11 Extinction and Inattention (only scored if +): 0 Total Score: 0 MDM MDM MDM Narrative Medical decision making narrative: Patient evaluated for sudden onset of binocular diplopia. He also had transient episode of weakness in his right leg where it gave out. Patient had seen the preload supervisor just prior to arrival. He currently has a normal neurologic exam with an NIH of 0. In addition he is complained of some mild chest pain. Differential includes stroke, TIA, intracranial hemorrhage, coronary artery disease. EKG is nonischemic and his troponin is normal. Low suspicion for ACS. CT of the brain does show prior lacunar infarcts but no acute process. Work-up is largely normal. Given patient's risk factors, family history and changes symptoms I do think he would benefit from further admission for stroke work-up as well as risk mitigation for possible future stroke. Patient agreeable this plan of care. Patient is given aspirin in the emergency room. Case discussed with admitting physician who is agreeable to this. Lab Data Attestation: I reviewed the patient's lab results. Labs: Laboratory Results - last 24 hr 02/08/23 02/08/23 02/08/23 16:39 16:42 16:42 WBC 7.1 RBC 5.21 Hgb 16.2 Hct 48.6 MCV 93.3 MCH 31.1 MCHC 33.3 RDW Std Deviation 43.6 RDW Coeff of Ivonne 12.7 Plt Count 224 MPV 10.2 Immature Gran % (Auto) 0.300 Neut % (Auto) 51.9 Lymph % (Auto) 33.9 [place] % (Auto) 11.4 H Eos % (Auto) 1.8 Baso % (Auto) 0.7 Absolute Neuts (auto) 3.7 Absolute Lymphs (auto) 2.41 Nucleated RBC % 0 Sodium 139 Potassium 3.7 Chloride 104 Carbon Dioxide 31.0 Anion Gap 4 L BUN 17 Creatinine 1.16 Estim Creat Clear Calc 58.56 Est GFR (MDRD) Af Amer 79 Est GFR (MDRD) Non-Af 66 BUN/Creatinine Ratio 14.7 Glucose 118 H Calcium 9.6 Troponin I High Sens 4 POC Glucose 133 H 02/08/23 19:00 WBC RBC Hgb Hct MCV MCH MCHC RDW Std Deviation RDW Coeff of Ivonne Plt Count MPV Immature Gran % (Auto) Neut % (Auto) Lymph % (Auto) [place] % (Auto) Eos % (Auto) Baso % (Auto) Absolute Neuts (auto) Absolute Lymphs (auto) Nucleated RBC % Sodium Potassium Chloride Carbon Dioxide Anion Gap BUN Creatinine Estim Creat Clear Calc Est GFR (MDRD) Af Amer Est GFR (MDRD) Non-Af BUN/Creatinine Ratio Glucose Calcium Troponin I High Sens 5 POC Glucose Radiography Chest X-Ray - ED: 2 View, Read by ED Physician, Read by Radiologist and Normal Diagnostic Testing: Clinical Impression(s) from Imaging Studies Brain CT 02/08/23 16:53 IMPRESSION: Mild cortical atrophy and periventricular white matter ischemic changes. Old bilateral lacunar infarcts If concern for acute infarct MRI recommended Electronically Signed: Dominick Belcher MD at 17:19 EDT , Chest X-Ray 02/08/23 17:05 IMPRESSION: No acute cardiopulmonary pathology.. Electronically Signed: Dominick Belcher MD at 17:21 EDT Reading Location ID and State: [facility] / [place] , Service support , Rhythm Strip Rhythm Strip: Sinus Rhythm Rate: 66 Ectopy: PVC(s) EKG Initial EKG: Attestation: I personally reviewed and interpreted this EKG as follows: Interpretation: Sinus Rhythm Comments: Normal sinus rhythm at a rate of 66 bpm PVCs present Left axis deviation Normal intervals Nonspecific T wave inversions and 3 and aVF with no reciprocal changes No significant change compared to prior EKG on 08/01/2018 however patient does now have PVCs Discharge Plan Dx/Rx/DC Orders Clinical Impression: TIA (transient ischemic attack), Essential hypertension, Atherosclerosis of coronary artery without angina pectoris, Binocular vision disorder with diplopia Disposition Disposition: Acute Care Hospital [facility] Discharge Date/Time: 02/08/23 19:12
[2023-02-08 18:09] VITALS: BP 121/83; PULSE 70; RESP 16; TEMP 36.7; O2SAT 96
[2023-02-08 18:39] VITALS: BP 137/87; PULSE 64; RESP 18; TEMP 36.7; O2SAT 97
[2023-02-08] MEDS: Aspirin 325 MG Tablet PO (18:59)
--- NOTE | 2023-02-08 19:00 | NURSING ---
Emergency Documentation started on 02/08 at 1900.
[2023-02-08 19:03] LABS: Reflex Troponin-HS? (from REC) Y
[2023-02-08 19:30] LABS: Troponin-I HS 5 pg/mL (3.0-78.0)
--- NOTE | 2023-02-08 19:36 | HP.PCM.HOS_ITS ---
HPI - General General Date of Admission: 02/08/23 HPI Narrative KACI BEAN, is a 72 M who presents to the hospital with concerns of a TIA. He developed double vision and weakness in his right leg where his knee gave out. He had just had cataract surgery in November so he went to his certified veterinary technician for evaluation and with their evaluation they felt that it was not related to his cataract surgery and given his symptoms referred him to the ER for evaluation of a TIA. In the ER CT scan of the brain demonstrated 2 old lacunar infarcts that were not commented on CT of the brain a few weeks ago after he had a fall but they do appear old. He states that his double vision appears to have resolved and his NIH is 0. Lab work was unremarkable he was complaining of some left-sided chest pain which she states he has stable angina where he will have chest pain that last for few hours and then goes away, his funeral director is aware of this. His troponin was 4, the recheck is pending. His chest pain has resolved. He is on cholesterol medication but does not take an aspirin, he states that he used to be on an aspirin but this was discontinued. He is unaware of when he would have had any symptoms consistent with prior strokes, he does have a history of a pheochromocytoma and at that time did have elevated heart rates and blood pressures but has not had any issues with an abn ormal heart rhythm since after his pheo was removed. 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 Chest pain Family history of heart disease GERD (gastroesophageal reflux disease) History of deep vein thrombosis of lower extremity HLD (hyperlipidemia) Non-ischemic cardiomyopathy Home Medications multivitamin,[id number]-[id number] 27 mg-0.4 mg tablet 1 tab PO DAILY supplement 10/28/15 [History Last Taken 02/08/23] ascorbic acid (vitamin C) 500 mg capsule 500 mg PO DAILY supplement 05/31/20 [History Last Taken 02/08/23] cholecalciferol (vitamin D3) 25 mcg (1,000 unit) capsule 25 mcg PO DAILY suppplement 05/31/20 [History Last Taken 02/08/23] hydrochlorothiazide 25 mg tablet 25 mg PO DAILY 07/18/21 [History Last Taken Unknown] atorvastatin 10 mg tablet 10 mg PO DAILY 07/26/22 [History Last Taken Unknown] pantoprazole 40 mg tablet,delayed release 40 mg PO DAILY 07/26/22 [History Last Taken Unknown] sertraline 50 mg tablet (Zoloft) 50 mg PO DAILY 07/26/22 [History Last Taken Unknown] Allergy/AdvReac Type Severity Reaction Status Date / Time No Known Allergies Allergy Verified 02/08/23 16:29 Family History Father CAD (coronary artery disease) CVA (cerebral vascular accident) Myocardial infarction, Onset Age: 50 Other Family history of heart disease Surgical History History of foot surgery (12/2019) History of left heart catheterization (12/07/11) History of tonsillectomy History of total adrenalectomy pheochromocytoma excision Social History Smoking Status: Never smoker alcohol intake: current substance use type: does not use ROS Constitutional Constitutional: Denies chills, fatigue, fever(s) or malaise Eyes Eyes: Reports double vision; Denies blurry vision ENT HEENT: Denies headache(s) or nasal discharge Cardiovascular Cardiovascular: Reports chest pain; Denies dyspnea on exertion or syncope Respiratory/Chest Respiratory/Chest: Denies cough, shortness of breath at rest or shortness of breath with exertion Gastrointestinal Gastrointestinal: Denies constipation, diarrhea, nausea or vomiting Genitourinary Genitourinary: Denies dysuria Neurologic Neurologic: Denies focal weakness, numbness or tremor(s) Psychiatric Psychiatric: Denies anxiety or depression Vital Signs Vital Signs Vital Signs: 02/08/23 16:29 02/08/23 18:09 02/08/23 18:39 Temperature 95.9 F L 98.1 F 98.1 F Temperature Source Temporal Oral Oral Pulse Rate 74 70 64 Respiratory Rate 18 16 18 Blood Pressure 127/71 H 121/83 H 137/87 H Blood Pressure Mean 89 95 103 Pulse Ox 99 96 97 Oxygen Delivery Method Room Air Room Air Room Air Weight Weight: 211 lb 13.828 oz Body Mass Index (BMI) 30.4 Physical Exam Narrative General: Alert, Oriented x3, Cooperative, No apparent distress HEENT: Atraumatic, PERRLA, EOMI, Normocephalic Oral: Moist Mucosa Neck: Supple, No JVD Lungs: Clear to auscultation, Normal air movement, No rhonchi, No wheeze, No rales Cardiovascular: Regular rate, Regular Rhythm, Normal S1, Normal S2, No murmurs Abdomen: Soft, Non Tender, Non-Distended, No Hepato-splenomegaly Extremities: No edema, Capillary Refill Less than 3 Seconds Skin: No rashes, No breakdown Musculoskeletal: No Tenderness to Palpation of Joints or Extremities Neurological: Cranial nerves II-XII grossly intact, Motor Exam 5/5 strength throughout, Sensory exam intact to light touch and pain Psych/Mental Status: Normal Affect, Appropriate Results Lab / Micro Data Result Diagrams: 02/08/23 16:42 02/08/23 16:42 Labs: Laboratory Results - last 24 hr 02/08/23 16:39: POC Glucose 133 H 02/08/23 16:42: WBC 7.1, RBC 5.21, Hgb 16.2, Hct 48.6, MCV 93.3, MCH 31.1, MCHC 33.3, RDW Std Deviation 43.6, RDW Coeff of Ivonne 12.7, Plt Count 224, MPV 10.2, Immature Gran % (Auto) 0.300, Neut % (Auto) 51.9, Lymph % (Auto) 33.9, [place] % (Auto) 11.4 H, Eos % (Auto) 1.8, Baso % (Auto) 0.7, Absolute Neuts (auto) 3.7, Absolute Lymphs (auto) 2.41, Nucleated RBC % 0 02/08/23 16:42: Sodium 139, Potassium 3.7, Chloride 104, Carbon Dioxide 31.0, Anion Gap 4 L, BUN 17, Creatinine 1.16, Estim Creat Clear Calc 58.56, Est GFR (MDRD) Af Amer 79, Est GFR (MDRD) Non-Af 66, BUN/Creatinine Ratio 14.7, Glucose 118 H, Calcium 9.6, Troponin I High Sens 4 02/08/23 19:00: Troponin I High Sens 5 Rhythm Strip Rhythm Strip: Sinus Rhythm Rate: 66 Ectopy: PVC(s) Radiology Impression Brain CT 02/08/23 16:53 IMPRESSION: Mild cortical atrophy and periventricular white matter ischemic changes. Old bilateral lacunar infarcts If concern for acute infarct MRI recommended Electronically Signed: Dominick Belcher MD at 17:19 EDT , Chest X-Ray 02/08/23 17:05 IMPRESSION: No acute cardiopulmonary pathology.. Electronically Signed: Dominick Belcher MD at 17:21 EDT , Assessment & Plan Assessment/Plan (1) TIA (transient ischemic attack): PLAN: Plan 1. TIA/HTN/HLD/history of pheochromocytoma/chest pain ? We will obtain an MRI tomorrow morning and if positive can complete stroke work-up ? Will continue with an aspirin and given the CT findings would recommend discharge on aspirin ? Increase his home Lipitor from 10 mg p.o. daily to 40 mg p.o. daily would recommend discharging on the higher dose ? We will hold his hydrochlorothiazide for permissive hypertension until the MRI comes back 2. Anxiety/depression ? Stable ? Continue with Zoloft 3. GERD ? Stable ? Continue with PPI DVT: Ambulation 76 minutes was spent in direct patient care and discussion with family as well as chart review and collaboration with colleagues Charges/Coding Visit Charges Inpatient E&M: 28816 Init Hosp L3
[2023-02-08 19:50] VITALS: BP 159/92; PULSE 61; RESP 16; TEMP 36.5; O2SAT 97
[2023-02-08] MEDS: Atorvastatin Calcium 40 MG Tablet PO (21:22)
[2023-02-08] MEDS: Sertraline 50 MG Tablet PO (21:22)
[2023-02-08 21:45] VITALS: O2SAT 97
[2023-02-08 23:50] VITALS: BP 119/58; PULSE 68; RESP 16; TEMP 36.7; O2SAT 98
[2023-02-09 00:14] VITALS: BMI 30.8
[2023-02-09 00:27] VITALS: BMI 30.4
[2023-02-09 03:43] VITALS: BP 123/82; PULSE 75; RESP 16; TEMP 36.6; O2SAT 98
[2023-02-09 04:02] LABS: Mucous, Urine 0 SEEN /hpf (<or=2+); Red Blood Cells-Urine 0 SEEN /hpf (0-5); Squamous Epithelial Cells - UA 0 SEEN /hpf (0-5); White Blood Cells 0 SEEN /hpf (0-5)
[2023-02-09 04:03] LABS: Color, Urine Yellow (Yellow); Glucose, Dipstick Normal (Normal); Ketone-Dipstick Negative (Negative); Leukocyte Esterase-Dipstick Negative /ul (Negative); Nitrite-Dipstick Negative (Negative); Occult Blood-Urine Negative /ul (Negative); Protein-Dipstick 30 mg/dl (Negative); Urine Bilirubin Dipstick Negative (Negative); Urine Clarity Clear (Clear); Urine Urobilinogen 1 mg/dl (Normal)
[2023-02-09 04:25] LABS: Bacteria RARE /hpf (None Seen)
[2023-02-09 06:45] LABS: Absolute Lymphocyte Count 2.04 X10^3/uL (0.83-4.51); Absolute Neutrophil Count 3.1 X10^3/uL (2.0-7.7); Basophil# 0.04 X10^3/uL; Basophil% 0.7 % (0-1); Eosinophil# 0.15 X10^3/uL; Eosinophils% 2.5 % (0-5); Hematocrit 42.8 % (40-54); Hemoglobin 14.9 g/dL (13.0-16.5); Lymphocyte # 2.04 X10^3/ul (0.83-4.51); Lymphocyte % 33.7 % (19-41); Mean Corp Hgb Conc 34.8 g/dL (32-36); Mean Corpuscular Hgb 31.8 pg (27.0-32.0); Mean Corpuscular Volume 91.5 fL (80-94); Mean Platelet Vol. 9.5 fl (6.2-12.0); Monocyte# 0.72 X10^3/uL; Monocyte% 11.9 % (0-10); NRBC Flagged by Analyzer 0 % (0-5); Neutrophil # 3.09 X10^3/uL (2.7-7.7); Neutrophil % 50.9 % (47-70); Platelet Count 192 K/mm3 (150-450); RBC Distribution Width CV 12.7 % (11.6-14.6); RBC Distribution Width SD 42.2 fl (35.1-43.9); Red Blood Count 4.68 M/mm3 (4.6-6.2); White Blood Count 6.1 K/mm3 (4.4-11.0)
[2023-02-09 07:24] LABS: Anion Gap 5 (5-15); BUN 18 mg/dL (7-18); BUN/Creat Ratio 17.8 RATIO (10-20); Calcium,Total 8.8 mg/dL (8.5-10.1); Chloride 107 mmol/L (98-107); Cholesterol 157 mg/dL (200); Creatinine, Serum 1.01 mg/dL (0.70-1.30); EST Glomerular Filtration Rate 77 mL/min (>60); Est Glom Filt Rate - Afr Amer 93 mL/min (>60); Estimated Creatinine Clearance 65.14 ml/min; Glucose 135 mg/dL (74-106); High Density Lipoprotein 37 mg/dL; Potassium 3.6 mmol/L (3.5-5.1); Sodium Level 140 mmol/L (136-145); Triglycerides 126 mg/dL; Very Low Density Lipoprotein 25 mg/dL (5-40)
[2023-02-09 07:43] VITALS: BP 134/79; PULSE 70; RESP 16; TEMP 36.7; O2SAT 96
[2023-02-09 07:50] VITALS: O2SAT 97
[2023-02-09] MEDS: Aspirin 81 MG TAB.CHEW PO (08:27)
[2023-02-09] MEDS: Pantoprazole Sodium 40 MG Tablet PO (08:27)
[2023-02-09] MEDS: Ascorbic Acid 500 MG Tablet PO (08:27)
--- NOTE | 2023-02-09 10:00 | MRI_ITS ---
STUDY: MRI BRAIN WITHOUT CONTRAST REASON FOR EXAM: Male, 72 years old. CVA - TECHNIQUE: Standardized multiplanar fat and water weighted pulse sequences were obtained. COMPARISON: No relevant prior imaging available for comparison. HEMISPHERES, CEREBELLUM AND BRAINSTEM: 1. There is mild cortical and central atrophy. There is mild chronic microvascular ischemic change in the periventricular white matter. Scattered foci of increased signal intensity are seen throughout the ramos radiata and centrum semiovale bilaterally measuring up to 4 mm in diameter. There is an old left posterior parietal infarct. There is some gyriform high signal seen in this region on the FLAIR series. This measures 2.34 cm AP by 0.55 cm transverse. There is encephalomalacia seen in this region. There is no evidence of acute infarct or acute ischemia. There is normal valle/white differentiation. No midline shift.. 2. The hemispheric white matter has normal appearance. 3. No intraparenchymal mass, hemorrhage, or acute territorial infarct. 4. The cerebellum, brainstem, basilar and suprasellar cisterns have normal appearance. No Chiari malformation. PITUITARY: Infundibulum and pituitary have normal configuration. Midline structures appear normal. CSF SPACES: No hydrocephalus. Basal cisterns are patent. VESSELS: 1. There are normal flow voids noted in the great vessels at the skull base ORBITS AND PARANASAL SINUSES: 1. Both globes, extraocular muscles, optic nerves and retrobulbar fat appear unremarkable. 2. Paranasal sinuses are clear. BONY ELEMENTS: Bony elements of the cranial vault, facial skeleton and skull base have normal appearance. SCALP AND SOFT TISSUES: Normal appearance of the soft tissues of the scalp and the visualized face OTHER: None MRI/Brain without Contrast IMPRESSION: Stable findings. Old posterior left parietal infarct with high signal in this region on the FLAIR series measuring 2.34 x 0.55 cm. Mild cortical and central atrophy. Mild chronic microvascular ischemic change. Electronically Signed: Wayne Yeboah MD, CARLEY at 12:32 EDT ,
--- NOTE | 2023-02-09 10:04 | EKG12_ITS ---
Test Reason : Blood Pressure : / mmHG Vent. Rate : 066 BPM Atrial Rate : 066 BPM P-R Int : 182 ms QRS Dur : 098 ms QT Int : 416 ms P-R-T Axes : 021 -26 -09 degrees QTc Int : 436 ms Sinus rhythm with frequent Premature ventricular complexes Otherwise normal ECG When compared with ECG of 08-FEB-2023 17:20, MANUAL COMPARISON REQUIRED, DATA IS UNCONFIRMED Confirmed by JASMIN MENARD, ARIEL ([id number]), editorial writer FIFI HERNADEZ ([id number]) on 02/12/2023 9:07:31 AM Referred By: DAYAN Confirmed By:ARIEL CASTELLANOS MD
[2023-02-09 10:50] LABS: Troponin-I HS 3 pg/mL (3.0-78.0)
[2023-02-09 10:58] VITALS: BMI 30.4
[2023-02-09 11:53] VITALS: BP 121/74; PULSE 70; RESP 16; TEMP 36.6; O2SAT 95
--- NOTE | 2023-02-09 14:16 | PCM.DC ---
Discharge Instructions Diet Discharge Diet: No restrictions Activity Discharge Activity: Return to Normal Activity Weight Bearing Status: Full weight bearing Follow Up Care Test Results: Test results from this visit will be discussed in further detail at your follow-up appointment, if applicable. Discharge Plan Admission Admit Date/Time: 02/08/23 19:27 Primary Reason for Your Visit: double vision Attending Provider: Wayne Law Primary Care Provider: Lincoln Henning Consulting Providers: Rolf Perrin Instructions Additional Instructions / Restrictions: It is recommended that you take an 81 mg delayed release aspirin daily-obtain this [id number] If you continue to have episodic chest pain, please follow-up with your field services manager Discharge Orders/Prescriptions Prescriptions: New atorvastatin 40 mg Tablet 40 mg PO DAILY Qty: 30 0RF aspirin 81 mg tablet,delayed release (DR/EC) 81 mg PO DAILY Qty: 30 0RF Continued ascorbic acid (vitamin C) 500 mg capsule 500 mg PO DAILY cholecalciferol (vitamin D3) 25 mcg (1,000 unit) capsule 25 mcg PO DAILY hydrochlorothiazide 25 mg tablet 25 mg PO DAILY pantoprazole 40 mg tablet,delayed release (DR/EC) 40 mg PO DAILY Label Comments: TAKE 1 TABLET BY MOUTH TWICE A DAY sertraline [Zoloft] 50 mg tablet 50 mg PO DAILY Label Comments: TAKE 1 TABLET BY MOUTH EVERY DAY multivitamin,cr-ghjj-kzwixowm 1 TABLET tablet 1 tab PO DAILY Discontinued atorvastatin 10 mg tablet 10 mg PO DAILY Label Comments: TAKE 1 TABLET BY MOUTH EVERY DAY Referrals / Follow Up: Lincoln Henning MD [Primary Care Provider] - Disposition Disposition (needs filled in before D/C Order can be placed): Home, Self Care
--- NOTE | 2023-02-09 14:21 | DS.PCM_ITS ---
Providers Date of Admission: 02/08/23 Date of Discharge: 02/09/23 Primary Care Physician: Dr. Lincoln Henning MD Reason For Visit: TIA Diagnosis Discharge Diagnosis (1) TIA (transient ischemic attack): Status: Acute Code(s): G45.9 - Transient cerebral ischemic attack, unspecified Plan 1. 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 #4 precordial chest pain-etiology unclear-chronic in nature #5 essential hypertension Medications at Discharge Home Medications multivitamin,ji-lsmq-pejrvgqb 27 mg-0.4 mg tablet 1 tab PO DAILY supplement 10/28/15 ascorbic acid (vitamin C) 500 mg capsule 500 mg PO DAILY supplement 05/31/20 cholecalciferol (vitamin D3) 25 mcg (1,000 unit) capsule 25 mcg PO DAILY suppplement 05/31/20 hydrochlorothiazide 25 mg tablet 25 mg PO DAILY 07/18/21 pantoprazole 40 mg tablet,delayed release 40 mg PO DAILY 07/26/22 sertraline 50 mg tablet (Zoloft) 50 mg PO DAILY 07/26/22 aspirin 81 mg tablet,delayed release 81 mg PO DAILY #30 tabs 02/09/23 atorvastatin 40 mg tablet 40 mg PO DAILY #30 tabs 02/09/23 Hospital Course Operations None Procedures None Summary of Care Provided Minutes Spent on Discharge: 31 Hospital Course: This 72-year-old white male was seen in the emergency room at [facility] 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 Work-up in the emergency room included a CT scan of the brain which demonstrated to old lacunar infarcts, patient's NIH score was 0. He had been complaining of some precordial chest pain, troponin was normal. 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 Patient follows with Dr. Arias. Patient was placed in observation status on PCU, he was maintained on a baby aspirin daily and an increase dose of his chronic statin, patient underwent an MRI of the brain on 02/09/23-there is no evidence of a new infarct but there was noted to be an old left parietal infarct with some enc ephalomalacia. Patient had episodic chest pain during his stay in the hospital, his enzymes were negative and EKG did not show any evidence of ischemic changes. On 02/09/2023, patient was seen and examined: On examination he appeared in good health and spirits. Vital signs as documented. Skin warm and dry and without overt rashes. Neck without JVD, neck was supple, trachea midline, thyroid was no rmal. Lungs clear bilaterally, normal air movement was noted. Heart exam notable for regular rhythm, normal sounds and absence of murmurs, rubs or gallops. Abdomen unremarkable and without evidence of organomegaly, masses, or abdominal aortic enlargement. Bowel sounds are present, abdomen is not distended. Extremities nonedematous, no cyanosis was noted, no clubbing was noted. Neuro: Cranial nerves II through XII are grossly intact, no focal motor deficits were noted, sensation to light touch and pinprick intact, motor exam 5/5 throughout. Psych: Patient is alert and oriented x3, he does not appear anxious or depressed, he does not appear agitated. Patient was discharged home in stable condition on 02/09/2023. Weight / BMI Weight Weight: 94.5 kg Body Mass Index (BMI) 30.4 ABG / Lab / Microbiology Data Result Diagrams: 02/09/23 06:16 02/09/23 06:16 Laboratory: Laboratory Results - last 24 hr 02/08/23 16:39: POC Glucose 133 H 02/08/23 16:42: WBC 7.1, RBC 5.21, Hgb 16.2, Hct 48.6, MCV 93.3, MCH 31.1, MCHC 33.3, RDW Std Deviation 43.6, RDW Coeff of Ivonne 12.7, Plt Count 224, MPV 10.2, Immature Gran % (Auto) 0.300, Neut % (Auto) 51.9, Lymph % (Auto) 33.9, [facility] % (Auto) 11.4 H, Eos % (Auto) 1.8, Baso % (Auto) 0.7, Absolute Neuts (auto) 3.7, Absolute Lymphs (auto) 2.41, Nucleated RBC % 0 02/08/23 16:42: Sodium 139, Potassium 3.7, Chloride 104, Carbon Dioxide 31.0, Anion Gap 4 L, BUN 17, Creatinine 1.16, Estim Creat Clear Calc 58.56, Est GFR (MDRD) Af Amer 79, Est GFR (MDRD) Non-Af 66, BUN/Creatinine Ratio 14.7, Glucose 118 H, Calcium 9.6, Troponin I High Sens 4 02/08/23 19:00: Troponin I High Sens 5 02/09/23 03:42: Urine Color Yellow, Urine Clarity Clear, Urine pH 7.0, Ur Specific [place] 1.010, Urine Protein 30 H, Urine Glucose (UA) Normal, Urine Ketones Negative, Urine Occult Blood Negative, Urine Nitrite Negative, Urine Bilirubin Negative, Urine Urobilinogen 1 H, Ur Leukocyte Esterase Negative, Urine RBC 0 SEEN, Urine WBC 0 SEEN, Ur Squamous Epith Cells 0 SEEN, Urine Bacteria RARE, Urine Mucus 0 SEEN 02/09/23 06:16: WBC 6.1, RBC 4.68, Hgb 14.9, Hct 42.8, MCV 91.5, MCH 31.8, MCHC 34.8, RDW Std Deviation 42.2, RDW Coeff of Ivonne 12.7, Plt Count 192, MPV 9.5, Immature Gran % (Auto) 0.300, Neut % (Auto) 50.9, Lymph % (Auto) 33.7, [facility] % (Auto) 11.9 H, Eos % (Auto) 2.5, Baso % (Auto) 0.7, Absolute Neuts (auto) 3.1, Absolute Lymphs (auto) 2.04, Nucleated RBC % 0 02/09/23 06:16: Sodium 140, Potassium 3.6, Chloride 107, Carbon Dioxide 28.0, Anion Gap 5, BUN 18, Creatinine 1.01, Estim Creat Clear Calc 65.14, Est GFR (MDRD) Af Amer 93, Est GFR (MDRD) Non-Af 77, BUN/Creatinine Ratio 17.8, Glucose 135 H, Calcium 8.8, Triglycerides 126, Cholesterol 157, LDL Cholesterol 95, VLDL Cholesterol 25, HDL Cholesterol 37 L 02/09/23 10:17: Troponin I High Sens 3 Radiography Diagnostic Testing: Radiology Impression Brain CT 02/08/23 16:53 IMPRESSION: Mild cortical atrophy and periventricular white matter ischemic changes. Old bilateral lacunar infarcts If concern for acute infarct MRI recommended Electronically Signed: Dominick Belcher MD at 17:19 EDT Reading Location ID and State: [facility] / [place] , Service support , Chest X-Ray 02/08/23 17:05 IMPRESSION: No acute cardiopulmonary pathology.. Electronically Signed: Dominick Belcher MD at 17:21 EDT , Brain MRI 02/09/23 10:00 IMPRESSION: Stable findings. Old posterior left parietal infarct with high signal in this region on the FLAIR series measuring 2.34 x 0.55 cm. Mild cortical and central atrophy. Mild chronic microvascular ischemic change. Electronically Signed: Wayne Yeboah MD, CARLEY at 12:32 EDT , D/C Instructions Discharge Diet: No restrictions Weight Bearing Status: Full weight bearing Meaningful Use Info Meaningful Use Diagnoses (Choose all that apply): None applicable Discharge Plan Admission Admit Date/Time: 02/08/23 19:27 Primary Reason for Your Visit: double vision Attending Provider: Wayne Law Primary Care Provider: Lincoln Henning Consulting Providers: Rolf Perrin Instructions Additional Instructions / Restrictions: It is recommended that you take an 81 mg delayed release aspirin daily-obtain this [id number] If you continue to have episodic chest pain, please follow-up with your religious education teacher Discharge Orders/Prescriptions Prescriptions: New atorvastatin 40 mg Tablet 40 mg PO DAILY Qty: 30 0RF aspirin 81 mg tablet,delayed release (DR/EC) 81 mg PO DAILY Qty: 30 0RF Continued ascorbic acid (vitamin C) 500 mg capsule 500 mg PO DAILY cholecalciferol (vitamin D3) 25 mcg (1,000 unit) capsule 25 mcg PO DAILY hydrochlorothiazide 25 mg tablet 25 mg PO DAILY pantoprazole 40 mg tablet,delayed release (DR/EC) 40 mg PO DAILY Label Comments: TAKE 1 TABLET BY MOUTH TWICE A DAY sertraline [Zoloft] 50 mg tablet 50 mg PO DAILY Label Comments: TAKE 1 TABLET BY MOUTH EVERY DAY multivitamin,hr-eghe-fjatdpbx 1 TABLET tablet 1 tab PO DAILY Discontinued atorvastatin 10 mg tablet 10 mg PO DAILY Label Comments: TAKE 1 TABLET BY MOUTH EVERY DAY Referrals / Follow Up: Lincoln Henning MD [Primary Care Provider] - Disposition Disposition (needs filled in before D/C Order can be placed): Home, Self Care Charges/Coding Visit Charges Inpatient E&M: 55117 Disch Hosp >30min
--- NOTE | 2023-02-09 14:25 | CASEMGMT ---
MARLENY QUARLES: Face to face with pt. Pt alert and states he is ready to return home. Pt denies any concerns or discharge needs at this time. Johnna Orozco RN CM
== END 2023-02-09 14:21 | disposition home or self-care (01) ==
LOC: ED 18:12 → PCU 19:13
PROVIDERS: Admitting Provider Family Medicine; Emergency Provider Emergency Medicine; PCP Family Medicine; Visit Provider Internal Medicine
DX: G45.9 Transient cerebral ischemic attack, unspecified (principal); I42.9 Cardiomyopathy, unspecified; H53.2 Diplopia; I10 Essential (primary) hypertension; R29.700 NIHSS score 0; I25.10 Atherosclerotic heart disease of native coronary artery without angina pectoris; R07.2 Precordial pain; E78.5 Hyperlipidemia, unspecified; Z86.718 Personal history of other venous thrombosis and embolism; K21.9 Gastro-esophageal reflux disease without esophagitis; Z79.899 Other long term (current) drug therapy; R53.1 Weakness; R13.12 Dysphagia, oropharyngeal phase; K14.8 Other diseases of tongue
CPT/HCPCS: 36415; 70450; 70551; 71046; 80048; 80061; 81001; 82962; 84484; 85025; 92523; 92610; 93005; 94762; 99221; 99284; A4216; G0378

== ENCOUNTER → 2023-03-15 | Outpatient (CLI) | payer MEDICARE, SELFPAY ==
--- NOTE | 2023-03-15 07:23 | ECHOD_ITS ---
Reason For Study: Chest pain Procedure This was a 2D Doppler, Color Flow transthoracic echocardiogram. Exam performed in department. Left Ventricle Normal LV size. Left ventricular systolic function is normal. The estimated ejection fraction is 60 %. Stage 1 diastolic dysfunction. No regional wall motion abnormalities noted. Right Ventricle Normal RV size. Normal systolic function. Atria The left atrium is mildly enlarged. Normal right atrium. Mitral Valve Normal mitral valve. Tricuspid Valve Normal tricuspid valve. Aortic Valve Trisinus/trileaflet aortic valve. Pulmonic Valve Normal pulmonic valve. Great Vessels Normal aortic root. The pulmonary artery is normal size. Normal inferior vena cava. Pericardium/Pleural No pericardial effusion. MMode/2D Measurements & Calculations LVIDd: 4.5 cm IVSd: 1.2 cm Ao root diam: 3.4 cm LVIDs: 2.9 cm LVPWd: 1.1 cm RVDd: 3.6 cm FS: 35.7 % LAV(MOD-bp): 61.2 ml LVAd ap4: 33.1 cm2 LVAd ap2: 28.2 cm2 LAV(MOD-bp) Indexed: 28.9 ml/m2 LVLd ap4: 8.0 cm LVLd ap2: 7.6 cm LAV(MOD-sp2): 60.1 ml EDV(MOD-sp4): 113.8 ml EDV(MOD-sp2): 91.5 ml LAV(MOD-sp4): 52.7 ml EDV(sp4-el): 116.1 ml EDV(sp2-el): 89.1 ml LVAs ap4: 19.5 cm2 LVAs ap2: 17.5 cm2 LVLs ap4: 7.3 cm LVLs ap2: 6.7 cm ESV(MOD-sp4): 48.3 ml ESV(MOD-sp2): 40.7 ml ESV(sp4-el): 43.9 ml ESV(sp2-el): 38.4 ml EF(MOD-sp4): 57.5 % EF(MOD-sp2): 55.6 % EF(sp4-el): 62.1 % SV(MOD-sp4): 65.4 ml SV(MOD-sp2): 50.8 ml SV(sp4-el): 72.1 ml LA dimension(2D): 3.5 cm LA A4 area: 21.1 cm2 RA A4 area: 14.7 cm2 Time Measurements MV dec time: 0.29 sec Doppler Measurements & Calculations MV E max tejas: 43.7 cm/sec Lat Peak E' Tejas: 5.3 cm/sec Med Peak E' Tejas: 6.4 cm/sec MV A max tejas: 70.8 cm/sec E/E' lat: 8.2 E/E' med: 6.8 MV E/A: 0.62 MV dec slope: 150.1 cm/sec2 Ao V2 max: 138.5 cm/sec LV V1 max: 96.4 cm/sec Ao max P.7 mmHg LV V1 max P.7 mmHg Ao V2 mean: 91.1 cm/sec LV V1 mean P.1 mmHg Ao mean P.9 mmHg LV V1 mean: 68.0 cm/sec Ao V2 VTI: 30.5 cm LV V1 VTI: 23.3 cm AV (velocity ratio): 0.76 PA V2 max: 83.0 cm/sec ECHO/Echo Complete Interpretation Summary Normal LV size. Left ventricular systolic function is normal. The estimated ejection fraction is 60 %. Stage 1 diastolic dysfunction. Structurally normal valves. The global longitudinal strain is normal. The globa l longitudinal strain = -18.2 % (normal). Ordering Physician: Vanesa Mcdonald/Elpidio Arias Referring Physician: Pascual Henning Performed By: Marianna Fernandez RDCS
--- NOTE | 2023-03-15 18:11 | STRESSREP ---
Stress Test Report Exercise myocardial perfusion stress test. 72-year-old man with a history of chest pain Stress protocol: Resting EKG demonstrates sinus rhythm with a rate of 59 bpm resting blood pressure is 142/74 mmHg. The patient exercised according to the regular Peyman protocol for a total duration of 6 minutes and 15 seconds attaining a maximum heart rate of 131 bpm which was 89% of maximum predicted heart rate; the maximum workload was 7.7 metabolic equivalents. At rest there were no ST or T wave changes noted to suggest ischemia and at peak exercise upsloping ST changes only were noted which did not meet the criteria for ischemia. No clinical angina was noted the test was terminated due to the target heart rate being achieved/fatigue. The peak blood pressure was 162/80 mmHg. Rate-pressure product was 17,500. Myocardial perfusion protocol. 11.9 mCi of technetium 99m sestamibi was injected at rest. The patient exercised according to regular Peyman protocol for total duration of 6 minutes and 15 seconds and at peak exercise 84.2 mCi of technetium 99m sestamibi was injected stress images were obtained stress and rest images were reconstructed in comparing the short axis vertical long and horizontal long axis. Gated images were also obtained. Perfusion SPECT analysis: Review of the stress images demonstrate normal uptake of tracer noted in all areas of the myocardium. The resting images similarly demonstrate normal uptake of tracer noted in all areas of the myocardium. No areas of reversibility are noted to suggest ischemia no previous infarct was noted. Gated SPECT analysis: The gated ejection fraction is 65%. Conclusion: Normal exercise myocardial perfusion stress test at a moderate workload Preserved ejection fraction.
== END | disposition home or self-care (01) ==
LOC: CVS 07:22
PROVIDERS: PCP Family Medicine; Referring Provider Physician Assistant Medical; Visit Provider Physician Assistant Medical
DX: I42.8 Other cardiomyopathies (principal); R07.9 Chest pain, unspecified; Z86.73 Personal history of transient ischemic attack (TIA), and cerebral infarction without residual deficits
CPT/HCPCS: 78452; 93017; 93306; A9500; A4216

== ENCOUNTER → 2023-04-05 | Day surgery (SDC) | payer MEDICARE, SELFPAY ==
--- NOTE | 2023-03-18 15:56 | PCM.HP.BLA ---
History and Physical Date of Admission: 04/05/23 KACI BEAN, is a 72 M who presents today for a cardiac catheterization.?He is a gentleman with a history of pheochromocytoma status post resection and nonischemic cardiomyopathy which has since resolved.? He was in the emergency room in January 2023 for TIA. Symptoms were rt leg weakness and double vision. He did initially present to his eye doctor who sent him to the ER. ER workout demonstrated no acute CVA but previous old CVA. He has had an episode of double vision since his hospital stay.? Otherwise his symptoms have resolved. He was in to see his PCP, PCP ordered a 14 day monitor. He will also be undergoing an MRA, home sleep study and appt with neurology.? He continues to complain of chest pain, it is to the left of his sternum.? It will last usually under 1 hour, and rates it a 2/10.? He denies any palpitations. He denies SOB, Orthopnea, and PND. He does not have bleeding issues; no blood in urine, stool or nosebleeds. He denies any decrease in energy level, myalgias, or claudication.? He does not have edema, or sudden weight gain. He does have positional dizziness where he needs to stop and get his balance before he moves. 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 History of foot surgery (12/2019) History of left heart catheterization (12/07/11) History of tonsillectomy History of total adrenalectomy pheochromocytoma excision Family History? Father CAD (coronary artery disease) CVA (cerebral vascular accident) Myocardial infarction,? Onset Age: 50Other Family history of heart disease Social History? Smoking Status:? Never smoker alcohol intake:? current substance use type:? does not use ROS Const Const: Negative for fatigue, weakness, fever(s) or headache(s) Eyes Eyes: Positive for double vision; Negative for blind spots, loss of peripheral vision or transient loss of vision ENT ENT: Positive for dizziness; Negative for headache(s), tinnitus, Nosebleed/epistaxis or balance problems Cardio Chest Pain: Yes-left of his sternum Palpitations: No Edema: None Muscle aches with walking: None Resp Respiratory: Negative for SOB with activity, SOB at rest, SOB orthopnea\SOB lying down or Cough GI GI: Negative nausea, vomiting, heartburn or vomiting blood/hematemesis : Negative for hematuria Musc Musc: Negative for muscle aches/ myalgia, muscle weakness, joint pain or balance problems Neuro Neuro: Positive for dizziness and double vision; Negative for lightheadedness, near syncope, syncope, orthostatic symptoms, headache(s) or weakness Isaac Hematologic/Lymphatic: Negative for easy bleeding Endo Endo: Negative for fatigue Cardiology Exam Const Appearance: cooperative and no acute distress Orientation: alert and oriented x3 Head Head: normal to inspection Ears: hearing grossly normal bilaterally Nose: external nose normal Face and Sinus: face symmetric Eyes General: appearance normal, both eyes and all related structures Eyelids: eyelids normal Conjunctivae: conjunctivae normal Pupils: PERRL and pupil size EOM: EOM intact bilaterally Neck Neck: normal visual inspection Carotids: Negative bruit Chest Chest inspection: normal inspection of the chest and normal respiratory effort Auscultation: Bilateral: Clear to Auscultation Cardio Palpation: normal PMI Rate: regular rate Rhythm: regular rhythm Heart sounds: S1 normal and S2 normal; Negative rub, gallop or murmur GI GI: normal to inspection and soft; Negative no hepatosplenomegaly Neuro General: patient alert, patient oriented x3 and CN's II-XI intact bilaterally Skin Skin: no rashes or lesions noted Extremities Pulses: Normal: Right Posterior Tibial Pulse, Left Posterior Tibial Pulse, Right Radial Pulse and Left Radial Pulse Lower Extremity Edema: None: Bilateral Psych Psychological: normal affect Supplemental Info Supplemental Information Stress Test 03/15/2023: Exercise myocardial perfusion stress test. 72-year-old man with a history of chest pain Stress protocol: Resting EKG demonstrates sinus rhythm with a rate of 59 bpm resting blood pressure is 142/74 mmHg. The patient exercised according to the regular Peyman protocol for a total duration of 6 minutes and 15 seconds attaining a maximum heart rate of 131 bpm which was 89% of maximum predicted heart rate; the maximum workload was 7.7 metabolic equivalents. At rest there were no ST or T wave changes noted to suggest ischemia and at peak exercise upsloping ST changes only were noted which did not meet the criteria for ischemia. No clinical angina was noted the test was terminated due to the target heart rate being achieved/fatigue. The peak blood pressure was 162/80 mmHg. Rate-pressure product was 17,500. Myocardial perfusion protocol. 11.9 mCi of technetium 99m sestamibi was injected at rest. The patient exercised according to regular Peyman protocol for total duration of 6 minutes and 15 seconds and at peak exercise 84.2 mCi of technetium 99m sestamibi was injected stress images were obtained stress and rest images were reconstructed in comparing the short axis vertical long and horizontal long axis. Gated images were also obtained. Perfusion SPECT analysis: Review of the stress images demonstrate normal uptake of tracer noted in all areas of the myocardium. The resting images similarly demonstrate normal uptake of tracer noted in all areas of the myocardium. No areas of reversibility are noted to suggest ischemia no previous infarct was noted. Gated SPECT analysis: The gated ejection fraction is 65%. Conclusion: Normal exercise myocardial perfusion stress test at a moderate workload Preserved ejection fraction. Echocardiogram 03/15/2023: Interpretation Summary Normal LV size. Left ventricular systolic function is normal. The estimated ejection fraction is 60 %. Stage 1 diastolic dysfunction. Structurally normal valves. The global longitudinal strain is normal. The global longitudinal strain = -18.2 % (normal). Pharmacologic myocardial perfusion stress test 07/25/2021 Resting EKG demonstrates normal sinus rhythm with a rate of 59 bpm first-degree AV block is noted resting blood pressure is 134/82 mmHg.? 0.4 mg of regadenoson was infused per usual protocol followed by rapid intravenous saline flush injection continuous EKG monitoring was performed.? The maximum heart rate attained was 75 bpm which was 50% of max infected heart rate the maximum workload was 1 metabolic equivalent.? At rest there were no ST or T wave changes noted to suggest abnormal flow reserve.? The final blood pressure was 132/76 mmHg. Perfusion SPECT analysis: Review of the stress images demonstrate normal uptake of tracer noted in all areas of the myocardium.? The resting images similarly demonstrate normal uptake of tracer noted in all areas of the myocardium.? No areas of reversibility are noted suggest ischemia and no previous infarct is noted. Gated SPECT analysis: The gated ejection fraction is 65%. Conclusion: Normal pharmacologic myocardial perfusion stress test. Preserved ejection fraction. STRESS ECHOCARDIOGRAM? 10/01/2019: Interpretation Summary Resting EKG demonstrates sinus rhythm with a rate of 63 bpm normal intervals are noted resting blood pressure 730/80 4 mmHg. The patient exercised according to regular Peyman protocol for total duration of 9 minutes and 36 seconds. The maximum heart rate attained was 129 bpm which was 86% of maximum predicted heart rate and maximum workload was 11.7 metabolic equivalents. At rest there were no ST or T wave changes noted suggest ischemia peak exercise upsloping ST changes only were noted with no meet the criteria for ischemia. No clinical angina was noted the test was terminated due to the target heart rate being achieved. Resting blood pressures 130/84 with a peak blood pressure 150/78 mmHg. Stress echocardiogram. The stress echo cardiographic images were obtained with and without Definity. The resting ejection fraction was noted to be 50 to 53%. The peak ejection fraction was noted to be 65% no wall motion abnormalities were noted. Conclusion: Exercise stress test with no EKG criteria for ischemia. Normal resting and stress echocardiographic images at a high workload. ECHOCARDIOGRAM ? 03/12/2018 Interpretation Summary Normal LV size. Left ventricular systolic function is normal. The estimated ejection fraction is 60 %. No evidence for diastolic dysfunction. Mild tricuspid valve insufficiency. Assessment and Plan Assessment and Plan (1) Non-ischemic cardiomyopathy: ?Status:?Acute ?Plan: Patient has a history of nonischemic cardiomyopathy. His most recent echocardiogram from 03/07/2023 demonstrated an ejection fraction of 60%. He will continue with his current medical therapy, along with monitoring for any concerning symptoms. (2) Essential hypertension: ?Status:?Acute ?Plan: Blood pressure is controlled on current medications.? He is only on hydrochlorothiazide.? Will not make any adjustments. (3) HLD (hyperlipidemia): ?Status:?Chronic ?Plan: Patient has a history of hyperlipidemia. He will continue atorvastatin 40 mg daily, along with aggressive risk factor lifestyle modifications. (4) CVA (cerebral vascular accident): ?Status:?Acute ?Plan: Patient has a history of CVA. He was started on an aspirin.? Patient's most recent 14-day ZIO event monitor demonstrated no atrial fibrillation, 2 episodes of ventricular tachycardia, with the fastest interval lasting 19 beats with a maximum rate of 197 bpm. It also demonstrated to supraventricular tachycardia episodes, with the fastest interval lasting 1 minute 24 seconds with a max rate of 162 bpm. Patient will proceed with a catheterization to further assess this. Depending on results, further recommendations will be made. (5) Chest pain: ?Status:?Acute ?Plan: Patient continues to have chest pain. His most recent stress test and echocardiogram from 03/15/2023 were reviewed with him. We will proceed with a cardiac catheterization to further assess his coronary arteries. Depending on results, further recommendations will be made. Cardiac catheterization instructions were given to patient, and he verbalizes understanding.
[2023-04-03 14:52] LABS: Hemoglobin 14.7 g/dL (13.0-16.5); Mean Corp Hgb Conc 33.4 g/dL (32-36); Mean Corpuscular Hgb 30.8 pg (27.0-32.0); Mean Corpuscular Volume 92.2 fL (80-94); Platelet Count 204 K/mm3 (150-450); RBC Distribution Width CV 12.1 % (11.6-14.6); RBC Distribution Width SD 41.1 fl (35.1-43.9); Red Blood Count 4.77 M/mm3 (4.6-6.2); White Blood Count 5.2 K/mm3 (4.4-11.0)
[2023-04-03 15:31] LABS: Anion Gap 6 (5-15); BUN 13 mg/dL (7-18); BUN/Creat Ratio 14.5 RATIO (10-20); Calcium,Total 8.5 mg/dL (8.5-10.1); Chloride 107 mmol/L (98-107); Creatinine, Serum 0.89 mg/dL (0.70-1.30); EST Glomerular Filtration Rate 88 mL/min (>60); Est Glom Filt Rate - Afr Amer 107 mL/min (>60); Glucose 144 mg/dL (74-106); Potassium 3.2 mmol/L (3.5-5.1); Sodium Level 142 mmol/L (136-145)
[2023-04-04 09:45] VITALS: BMI 31.3
[2023-04-05 07:43] LABS: Anion Gap 6 (5-15); BUN 19 mg/dL (7-18); BUN/Creat Ratio 19.3 RATIO (10-20); Calcium,Total 9.2 mg/dL (8.5-10.1); Chloride 109 mmol/L (98-107); Creatinine, Serum 0.98 mg/dL (0.70-1.30); EST Glomerular Filtration Rate 79 mL/min (>60); Est Glom Filt Rate - Afr Amer 96 mL/min (>60); Estimated Creatinine Clearance 67.13 ml/min; Glucose 132 mg/dL (74-106); Potassium 3.9 mmol/L (3.5-5.1); Sodium Level 141 mmol/L (136-145)
--- NOTE | 2023-04-05 08:54 | CL.D_ITS ---
Patient Name: KACI BEAN Study Date: 04/05/2023 Performing: Elpidio Arias MD Ht: 69 inches 175.26 cm : 1950 Wt: 212 lbs 96.16 kg Age: 72 Gender: male BSA: 2.12 PROCEDURE(S) PERFORMED [id number])LHC/COR/LV CLINICAL PROFILE AND INDICATIONS Indications: Suspected CAD Heart Failure: None Stress/Imaging Date: 03/15/23Stress Test with SPECT MPI: Negative CAD Presentations: Stable angina. CONCLUSIONS Moderate LAD disease with diagonal disease and minimal disease in the circumflex and right coronary artery. RECOMMENDATIONS We will maximize medical therapy. DESCRIPTION OF PROCEDURE The patient arrived to the procedure lab. The risks and benefits of the procedure as well as a full description of our services here and current unavailability of surgical backup were fully explained to the patient and/or their significant other prior to the catheterization. The Timeout was completed, verifying the correct patient and procedure. The patient's procedural site was prepped and draped in the usual fashion. Local anesthetic was given subcutaneously to right radial region with Lidocaine 2%. Using a modified Seldinger technique, arterial access was obtained via the right radial artery, a 6Fr sheath was inserted. Right Coronary Artery selective angiography was then performed in multiple views using a 5 Fr. 4.0 Hoyt catheter. Left Coronary Artery selective angiography was performed in multiple views using a 5 Fr. 4.0 Hoyt catheter. Left Ventriculography was performed in DANIELS projection using a 5 Fr. Pigtail catheter. LV to AO pullback pressures were then recorded.The arterial sheath was pulled and a TR Band was applied for hemostasis w/12ml air CORONARY ANGIOGRAPHY DOMINANCE: Right Dominant LEFT HEART ASSESSMENT Left Ventricular Ejection Fraction: by LV Gram 60 % Normal Left Ventricular systolic function LEFT MAIN: Angiographically normal LEFT ANTERIOR DESCENDING ARTERY: Medium size vessel with a tiny first diagonal branch medium size vessel with a first diagonal branch with 50% proximal stenosis, a second diagonal branch with 80% ostial stenosis and 2 small at the diagonal branches. The left anterior descending artery appears to be mildly diffusely diseased with no areas more than 30 to 40%. The distal tip of prior to the bifurcation has a 50% stenotic lesion present. CIRCUMFLEX ARTERY: Mild luminal irregularities less than 30% RIGHT CORONARY ARTERY: Mild luminal irregularities COMPLICATIONS No Complications PROCEDURE MEDICATIONS Versed 1 mg IV Fentanyl 50 mcg IV Baby Aspirin (81mg) 1 Tabs PO @ 04/05/2023 07:47:33 Heparin given IA 04/05/2023 08:33:35 Verapamil 2.5mg, Ntg 200mcgs, 2000 units of Heparin given IA 04/05/2023 08:33:35 SUMMARY OF HEMODYNAMIC DATA Time AIR REST ECG 07:45:27 AO 115/71 (89) SA 08:35:18 LV 90/12, 21 08:41:35 LV 54/7, 16 08:41:42 LV 96/12, 16 08:42:29 LV 103/12, 20 08:42:35 LVp 98/8, 20 08:42:40 AOp 105/59 (79) 08:42:45 Signed By Elpidio Arias MD On 04/05/2023 08:54:10 Elpidio Arias MD
== END | disposition home or self-care (01) ==
LOC: CLSP 07:18
PROVIDERS: PCP Family Medicine; Referring Provider Internal Medicine Cardiovascular Disease; Visit Provider Internal Medicine Cardiovascular Disease
DX: I42.8 Other cardiomyopathies (principal); I47.1 Supraventricular tachycardia; I20.9 Angina pectoris, unspecified; I10 Essential (primary) hypertension; Z86.73 Personal history of transient ischemic attack (TIA), and cerebral infarction without residual deficits; E78.5 Hyperlipidemia, unspecified; K21.9 Gastro-esophageal reflux disease without esophagitis; Z86.718 Personal history of other venous thrombosis and embolism; Z82.49 Family history of ischemic heart disease and other diseases of the circulatory system
CPT/HCPCS: 36415; 80048; 85027; 93458; 99152; 99153; J7040; C1769; C1894

== ENCOUNTER 2023-05-27 23:47 | Emergency (ER) | payer MEDICARE, SELFPAY ==
[2023-05-27 23:48] VITALS: BP 162/83; PULSE 57; RESP 18; TEMP 35.8; O2SAT 98; BMI 29.5
--- NOTE | 2023-05-28 00:46 | CT_ITS ---
INDICATION: Pain EXAMINATION: CT ABDOMEN AND PELVIS WITHOUT CONTRAST - CT Abdomen And Pelvis W/O Contrast Injection TECHNIQUE: Helically acquired images were obtained of the abdomen and pelvis with sagittal and coronal reconstructed images. Individualized dose optimization techniques were used for this CT. IV contrast dosage and agent: None. Oral contrast: None. COMPARISON: 04/15/2017 CT. FINDINGS: VESSELS: No abdominal aortic aneurysm. LIVER: No intrahepatic or extrahepatic biliary duct dilation. GALLBLADDER: No calcified stones. No evidence of cholecystitis. PANCREAS: No focal solid or cystic mass. No evidence of pancreatitis. SPLEEN: Normal. ADRENAL GLANDS: Normal. KIDNEYS AND URETERS: Left perinephric and periureteral stranding and mild left hydronephrosis and left hydroureter. 2 mm stone in the left ureterovesical junction. No right-sided urinary tract stone or obstruction. URINARY BLADDER: Unremarkable. BOWEL: Mild diverticulosis with no evidence of diverticulitis. Appendix appears normal. No evidence of bowel obstruction. REPRODUCTIVE ORGANS: Unremarkable. PERITONEUM: No intraabdominal free fluid or free air. LYMPH NODES: No pathologically enlarged mesenteric or retroperitoneal lymph nodes. ABDOMINAL WALL: Small fat-containing umbilical hernia. BONES: No acute abnormality. LOWER CHEST: Visualized lung bases are unremarkable. CT/Abdomen/Pelvis without Cont IMPRESSION: 2 mm stone in the distal left ureter, at the ureterovesical junction, with mild left hydronephrosis. Electronically Signed: Dominick Salsa DO at 2:00 EDT ,
--- NOTE | 2023-05-28 00:49 | ED.VIS.GI ---
HPI HPI - GI History of Present Illness Chief Complaint: Abd Pain Informant: patient Narrative Narrative: Patient presents with left-sided abdominal pain. Patient states he was feeling fine. He ate dinner of ham mashed potatoes and some green beans. He felt fine. After dinner he then ate some watermelon. His stated been in the refrigerator for a while and she did not think he should eat it but he did eat it anyway. Shortly after this he stated he started to get some sharp pain in the left lower quadrant flank area with nausea vomiting and some diarrhea but no blood. He had felt fine prior. He has had kidney stones in the past also. No fevers or chills with this episode. He has not been syncopal or presyncopal. Only blood thinner is baby aspirin. No chest pain or trouble breathing. No numbness tingling or weakness distally. Nothing makes it better or worse. 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 Chest pain DVT (deep venous thrombosis) Family history of heart disease GERD (gastroesophageal reflux disease) History of deep vein thrombosis of lower extremity HLD (hyperlipidemia) Non-ischemic cardiomyopathy Non-smoker NSVT (nonsustained ventricular tachycardia) Home Medications multivitamin,[id number] 27 mg-0.4 mg tablet 1 tab PO DAILY supplement 10/28/15 [History Last Taken 02/08/23] ascorbic acid (vitamin C) 500 mg capsule 500 mg PO DAILY supplement 05/31/20 [History Last Taken 02/08/23] cholecalciferol (vitamin D3) 25 mcg (1,000 unit) capsule 25 mcg PO DAILY suppplement 05/31/20 [History Last Taken 02/08/23] hydrochlorothiazide 25 mg tablet 25 mg PO DAILY 07/18/21 [History Last Taken Unknown] pantoprazole 40 mg tablet,delayed release 40 mg PO DAILY 07/26/22 [History Last Taken Unknown] sertraline 50 mg tablet (Zoloft) 50 mg PO DAILY 07/26/22 [History Last Taken Unknown] aspirin 81 mg tablet,delayed release 81 mg PO DAILY #30 tabs 02/09/23 [Rx Last Taken Unknown] atorvastatin 40 mg tablet 40 mg PO DAILY #30 tabs 02/09/23 [Rx Last Taken Unknown] potassium chloride 20 mEq tablet,extended release 20 meq PO .COMPLEX #90 tabs 04/03/23 [Rx Last Taken 04/05/23] ranolazine 500 mg tablet,extended release,12 hr 500 mg PO BID #180 tabs 04/05/23 [Rx Last Taken Unknown] ondansetron 4 mg disintegrating tablet 4 mg PO Q8H PRN PRN Nausea #10 tabs 05/28/23 [Rx Last Taken Unknown] oxycodone-acetaminophen 5 mg-325 mg tablet 1 tab PO Q6H PRN PRN Pain 3 days #12 TABLETS 05/28/23 [Rx Last Taken Unknown] tamsulosin 0.4 mg capsule (Flomax) 0.4 mg PO DAILY #7 caps 05/28/23 [Rx Last Taken Unknown] Allergy/AdvReac Type Severity Reaction Status Date / Time No Known Allergies Allergy Verified 05/27/23 23:48 Family History Father CAD (coronary artery disease) CVA (cerebral vascular accident) Myocardial infarction, Onset Age: 50 Other Family history of heart disease Surgical History History of foot surgery (12/2019) History of left heart catheterization (12/07/11) History of tonsillectomy History of total adrenalectomy pheochromocytoma excision Social History Smoking Status: Never smoker alcohol intake: current substance use type: does not use ROS ROS ED ROS Narrative A complete review of systems was performed and is negative except as documented in the history of present illness. Some specific details below. Constitutional: No recent fevers or chills. He felt fine prior to the onset of symptoms. EYE: No visual complaints or pain. ENT: No difficulty swallowing. No swelling. No pain. CV: No chest pain or palpitations. Respiratory: No dyspnea. No hemoptysis. No difficulty taking breaths. GI: Please see history of present illness. : No frequency dysuria or hematuria. Musculoskeletal: No recent trauma. No pains. Skin: No rash. Nondiaphoretic. Neuro: No weakness or numbness. Endocrine: No polyuria or polydipsia. EXAM Physical Exam Narrative Exam Narrative: CONSTITUTIONAL: Patient is nontoxic in appearance. The patient looks slightly uncomfortable. HEENT: No notable trauma. Mucous membranes moist. No sinus tenderness. No indication of pain with swallowing. EYES: No conjunctival injection. No proptosis. CARDIOVASCULAR: Regular rate. Regular rhythm. No notable murmur. No JVD. RESPIRATORY: No respiratory distress. Breathing is unlabored. No wheezes. No rhonchi. No rales. No pain with a deep breath. GASTROINTESTINAL: Not distended. Bowel sounds are normal. No tenderness. No guarding. No rebound. No palpable mass. No bruit. Despite the pain, his exam is actually very benign. He does state he is feeling better right now laying in the bed. GENITOURINARY: No tenderness over the bladder. No CVA tenderness. MUSCULOSKELETAL: Atraumatic. No peripheral edema. No cord. No tenderness along the deep venous system. No asymmetry. NEUROLOGICAL: Patient is alert and appropriate. No focal deficit noted. SKIN: No noted rashes. No diaphoresis. PSYCHIATRIC: Patient is calm. Mood is appropriate. Const Vital Signs: 05/27/23 23:48 05/28/23 02:51 Temperature 96.4 F L Temperature Source Temporal Pulse Rate 57 L 63 Respiratory Rate 18 14 Blood Pressure 162/83 H 152/78 H Blood Pressure Mean 109 102 Pulse Ox 98 93 Oxygen Delivery Method Room Air [facility] [place] [facility] [place] Narrative Medical decision making narrative: Patient CBC shows minimal elevation of white count which is nonspecific and may be demargination from pain. Patient's electrolytes do show a slight bump in his creatinine up to 1.59. He is given some IV fluids for this. Patient's liver function test are normal. Lipase is normal. Patient's urine looks clean. No sign of infection. My independent interpretation the patient's CT scan of the abdomen shows some hydronephrosis and stranding on the left with mild hydroureter. There does appear to be a distal kidney stone versus phlebolith. Per radiology this is a 2 mm distal stone. Patient had originally gotten complete relief of the pain. When he went up and got to the bathroom the pain came back. He is now given further pain meds and is feeling much better again. As long as he stays at a good level I think we can get him home. We discussed expected time of passage and course. We discussed follow-up. We discussed reasons to return that would include worsening pain, vomiting, fevers or other concerns. Lab Data Attestation: I reviewed the patient's lab results. Labs: Laboratory Results - last 24 hr 05/28/23 05/28/23 00:40 02:45 WBC 12.5 H RBC 4.56 L Hgb 14.1 Hct 43.3 MCV 95.0 H MCH 30.9 MCHC 32.6 RDW Std Deviation 47.7 H RDW Coeff of Ivonne 13.7 Plt Count 261 MPV 9.1 Immature Gran % (Auto) 0.500 Neut % (Auto) 77.1 H Lymph % (Auto) 13.2 L Lincoln % (Auto) 7.9 Eos % (Auto) 0.9 Baso % (Auto) 0.4 Absolute Neuts (auto) 9.6 H Absolute Lymphs (auto) 1.64 Nucleated RBC % 0 Sodium 141 Potassium 3.7 Chloride 107 Carbon Dioxide 31.0 Anion Gap 3 L BUN 21 H Creatinine 1.59 H Estim Creat Clear Calc 42.72 Est GFR (MDRD) Af Amer 55 L Est GFR (MDRD) Non-Af 46 L BUN/Creatinine Ratio 13.2 Glucose 168 H Calcium 9.2 Total Bilirubin 0.40 AST 30 ALT 68 H Alkaline Phosphatase 94 Total Protein 7.8 Albumin 4.0 Globulin 3.8 Albumin/Globulin Ratio 1.1 Lipase 49 Urine Color Yellow Urine Clarity Clear Urine pH 6.5 Ur Specific Chrisman 1.015 Urine Protein 15 H Urine Glucose (UA) Normal Urine Ketones Negative Urine Occult Blood 25 H Urine Nitrite Negative Urine Bilirubin Negative Urine Urobilinogen Normal Ur Leukocyte Esterase Negative Urine RBC 0 SEEN Urine WBC 0 SEEN Ur Squamous Epith Cells 0 SEEN Urine Bacteria 0 SEEN Urine Mucus 0 SEEN Radiography Diagnostic Testing: Clinical Impression(s) from Imaging Studies Abdomen/Pelvis CT 05/28/23 00:46 IMPRESSION: 2 mm stone in the distal left ureter, at the ureterovesical junction, with mild left hydronephrosis. Electronically Signed: Dominick Salas DO at 2:00 EDT , Discharge Plan Triage Chief Complaint: Abd Pain ED Provider: Doug Thorpe Dx/Rx/DC Orders Clinical Impression: Creatinine elevation, Nausea & vomiting, Kidney stone on left side Instructions: ED Kidney Stone w/ Colic Prescriptions: New oxycodone-acetaminophen [oxycodone-acetaminophen] 5-325 mg tablet 1 tab PO Q6H PRN PRN (Reason: Pain) 3 Days Qty: 12 0RF ondansetron [ondansetron] 4 mg tablet,disintegrating 4 mg PO Q8H PRN PRN (Reason: Nausea) Qty: 10 0RF tamsulosin [Flomax] 0.4 mg capsule 0.4 mg PO DAILY Qty: 7 0RF No Action ascorbic acid (vitamin C) 500 mg capsule 500 mg PO DAILY cholecalciferol (vitamin D3) 25 mcg (1,000 unit) capsule 25 mcg PO DAILY hydrochlorothiazide 25 mg tablet 25 mg PO DAILY pantoprazole 40 mg tablet,delayed release (DR/EC) 40 mg PO DAILY Patient Comments: TAKE 1 TABLET BY MOUTH TWICE A DAY sertraline [Zoloft] 50 mg tablet 50 mg PO DAILY Patient Comments: TAKE 1 TABLET BY MOUTH EVERY DAY multivitamin,gz-tbnt-qegymors 1 TABLET tablet 1 tab PO DAILY atorvastatin 40 mg Tablet 40 mg PO DAILY Qty: 30 0RF aspirin 81 mg tablet,delayed release (DR/EC) 81 mg PO DAILY Qty: 30 0RF potassium chloride 20 mEq tablet extended release 20 meq PO .COMPLEX Qty: 90 3RF Rx Instructions: 20 mEq orally 20 mEq orally 2 tablets (40 meq ) tonight 517 and 2 tablets (40 meq) tomorrow 18 then ONE tablet by mouth daily; ranolazine 500 mg tablet extended release 12 hr 500 mg PO BID Qty: 180 3RF Primary Care Provider: Lincoln Henning Referrals: Lincoln Henning MD [Primary Care Provider] - El Myers MD [Med Staff - Active Staff] - 3-5 Days if not improving Disposition Disposition: Home, Self Care
[2023-05-28 00:56] LABS: Absolute Lymphocyte Count 1.64 X10^3/uL (0.83-4.51); Absolute Neutrophil Count 9.6 X10^3/uL (2.0-7.7); Basophil# 0.05 X10^3/uL; Basophil% 0.4 % (0-1); Eosinophil# 0.11 X10^3/uL; Eosinophils% 0.9 % (0-5); Hematocrit 43.3 % (40-54); Hemoglobin 14.1 g/dL (13.0-16.5); Lymphocyte # 1.64 X10^3/ul (0.83-4.51); Lymphocyte % 13.2 % (19-41); Mean Corp Hgb Conc 32.6 g/dL (32-36); Mean Corpuscular Hgb 30.9 pg (27.0-32.0); Mean Platelet Vol. 9.1 fl (6.2-12.0); Monocyte# 0.98 X10^3/uL; Monocyte% 7.9 % (0-10); NRBC Flagged by Analyzer 0 % (0-5); Neutrophil # 9.62 X10^3/uL (2.7-7.7); Neutrophil % 77.1 % (47-70); Platelet Count 261 K/mm3 (150-450); RBC Distribution Width CV 13.7 % (11.6-14.6); RBC Distribution Width SD 47.7 fl (35.1-43.9); Red Blood Count 4.56 M/mm3 (4.6-6.2); White Blood Count 12.5 K/mm3 (4.4-11.0)
[2023-05-28] MEDS: Morphine 4 MG/ML Syringe IV (00:59)
[2023-05-28] MEDS: Ondansetron 4 MG/2 ML Vial IV (01:00)
[2023-05-28] MEDS: 0.9% Normal Saline 1,000 ML 1000 ML IV (01:00)
[2023-05-28 01:08] LABS: ALB/GLOB Ratio 1.1 RATIO (0.9-2.4); AST(SGOT) 30 U/L (15-37); Alanine Aminotransfer ALT/SGPT 68 U/L (16-61); Alkaline Phosphatase 94 U/L (45-117); Anion Gap 3 (5-15); BUN 21 mg/dL (7-18); BUN/Creat Ratio 13.2 RATIO (10-20); Calcium,Total 9.2 mg/dL (8.5-10.1); Chloride 107 mmol/L (98-107); Creatinine, Serum 1.59 mg/dL (0.70-1.30); EST Glomerular Filtration Rate 46 mL/min (>60); Est Glom Filt Rate - Afr Amer 55 mL/min (>60); Estimated Creatinine Clearance 42.72 ml/min; Globulin 3.8 g/dL (2.2-4.2); Glucose 168 mg/dL (74-106); Lipase 49 U/L (13-75); Potassium 3.7 mmol/L (3.5-5.1); Protein, Total 7.8 g/dL (6.4-8.2); Sodium Level 141 mmol/L (136-145)
[2023-05-28 02:51] VITALS: BP 152/78; PULSE 63; RESP 14; O2SAT 93
[2023-05-28 02:53] LABS: Bacteria 0 SEEN /hpf (None Seen); Mucous, Urine 0 SEEN /hpf (<or=2+); Red Blood Cells-Urine 0 SEEN /hpf (0-5); Squamous Epithelial Cells - UA 0 SEEN /hpf (0-5); White Blood Cells 0 SEEN /hpf (0-5)
[2023-05-28 02:54] LABS: Color, Urine Yellow (Yellow); Glucose, Dipstick Normal (Normal); Ketone-Dipstick Negative (Negative); Leukocyte Esterase-Dipstick Negative /ul (Negative); Nitrite-Dipstick Negative (Negative); Occult Blood-Urine 25 /ul (Negative); Protein-Dipstick 15 mg/dl (Negative); Specific Gravity, Urine 1.015 (1.002-1.030); Urine Bilirubin Dipstick Negative (Negative); Urine Clarity Clear (Clear); Urine Urobilinogen Normal (Normal); Urine pH 6.5 (5.0 - 8.0)
[2023-05-28] MEDS: HYDROmorphone 0.5 MG/0.5 ML SYRINGE IV (03:14)
[2023-05-28 03:56] VITALS: BP 142/79
== END 2023-05-28 03:57 | disposition home or self-care (01) ==
PROVIDERS: Emergency Provider Emergency Medicine; PCP Family Medicine; Visit Provider Emergency Medicine
DX: N13.2 Hydronephrosis with renal and ureteral calculous obstruction (principal); R79.89 Other specified abnormal findings of blood chemistry; R11.2 Nausea with vomiting, unspecified; N13.4 Hydroureter; K21.9 Gastro-esophageal reflux disease without esophagitis; E78.5 Hyperlipidemia, unspecified; Z79.82 Long term (current) use of aspirin
CPT/HCPCS: 74176; 80053; 81001; 83690; 85025; 96361; 96374; 96375; 99283; J7030; A4216; J2405

== ENCOUNTER 2023-09-29 13:14 | Emergency (ER) | payer MEDICARE, SELFPAY ==
[2023-09-29 13:15] VITALS: BP 151/95; PULSE 53; RESP 18; TEMP 35; O2SAT 100; BMI 30.9
--- NOTE | 2023-09-29 13:15 | CT_ITS ---
STUDY: CT CHEST, ABDOMEN T PELVIS WITH CONTRAST REASON FOR EXAM: Male, 73 years old. Trauma RADIATION DOSAGE (If Supplied By Facility): CTDIvol = ( 22.06 ) mGy, DLP = ( 2153.34 ) mGycm TECHNIQUE: Transaxial imaging was performed following intravenous administration of IV 100mL Isovue-370. Multiplanar coronal and sagittal images were reformatted. Individualized dose optimization techniques were used for this CT. COMPARISON: No relevant priors. FINDINGS: CHEST The lungs are normal. There is no demonstrated pleural abnormality. There are calcifications of the coronary arteries. Normal mediastinum. Normal hilar regions. Normal unenhanced pulmonary arteries. Normal aorta arch and descending thoracic aorta. There is an increased kyphosis of the thoracic spine. There is degenerative change of the spine. There is angulation suggesting healed rib fractures. ABDOMEN Normal liver. Normal gallbladder and extrahepatic biliary system. Normal spleen. Normal pancreas. Normal bilateral adrenal glands. Normal right kidney. Normal left kidney. Normal visualized stomach. Normal small intestine. Normal colon. The appendix is visualized and appears normal. There is diffuse atherosclerotic calcification of the abdominal aorta, without a demonstrated aneurysm. Normal inferior vena cava. There are surgical clips in the right upper retroperitoneum. Normal abdominal wall. There is degenerative change of the spine with grade 1 spondylolisthesis at L5-S1. PELVIS Normal urinary bladder. Normal visualized small intestine. Normal visualized colon. There is no pelvic fluid. There is no pelvic lymphadenopathy or mass lesion. Normal visualized pelvic arteries. There are surgical clips in the pelvis. Normal abdominal wall. There is degenerative change of the hips on the left more than the right. CT/CT Chest, Abd, Pel w/Contrast IMPRESSION: No acute fracture. No solid organ injury. No pneumothorax. Degenerative and postoperative change. Electronically Signed: Zacarias Mcdonnell MD at 14:23 EST ,
--- NOTE | 2023-09-29 13:15 | CT_ITS ---
STUDY: CT CERVICAL SPINE WITHOUT CONTRAST REASON FOR EXAM: Male, 73 years old. Trauma RADIATION DOSAGE (If Supplied By Facility): CTDIvol = ( 25.50 ) mGy, DLP = ( 501.4 ) mGycm TECHNIQUE: High resolution transaxial imaging was performed without contrast material. Sagittal and coronal images were reconstructed. Individualized dose optimization techniques were used for this CT. COMPARISON: None FINDINGS: Normal craniovertebral junction. There are degenerative changes of the anterior atlantoaxial articulation. Normal odontoid process. Normal cervical lordosis. Normal vertebral bodies and posterior osseous elements. There is no acute fracture. C2-3: Normal endplates. Normal disc height and morphology. Facet spurring on the left more than the right. Normal central canal and intervertebral neuroforamina. C3-4: Normal endplates. Normal disc height and morphology. Facet spurring. Normal central canal and intervertebral neuroforamina. C4-5: Mild spurring. Facet spurring. Normal central canal and intervertebral neuroforamina. C5-6: Disc space narrowing. Disc bulge and spurring. Facet spurring. No canal stenosis. Mild right foraminal narrowing. C6-7: Disc space narrowing. Disc bulge and spurring. Facet spurring. No canal stenosis. Mild right foraminal narrowing. C7-T1: Disc space narrowing. Facet spurring. No canal stenosis. Right foraminal narrowing. Normal visualized soft tissue structures. There are atherosclerotic calcifications. CT/Spine Cervical without Contras IMPRESSION: Multilevel degenerative changes, as described above. Electronically Signed: Zacarias Mcdonnell MD at 14:07 EST ,
--- NOTE | 2023-09-29 13:15 | CT_ITS ---
STUDY: CT BRAIN WITHOUT CONTRAST REASON FOR EXAM: Male, 73 years old. Trauma RADIATION DOSAGE (If Supplied By Facility): CTDIvol = ( 44.99 ) mGy, DLP = ( 812.98 ) mGycm TECHNIQUE: Transaxial CT imaging of the brain was performed without administration of intravenous contrast material. Individualized dose optimization techniques were used for this CT. COMPARISON: CT February 08, 2023 FINDINGS: Normal soft tissue structures. Normal calvarium. There is mild cerebral atrophy with widening of the extra-axial spaces and ventricular dilatation. There is stable left parietal density Normal white matter tracts of the cerebral hemispheres. Normal basal ganglia and thalami. Normal brainstem. Normal cerebellum. There is no intracranial hemorrhage. There are no findings of an acute ischemic infarction. Normal visualized paranasal sinuses. CT/Brain/Head without Contrast IMPRESSION: Chronic involutional changes of the brain. Electronically Signed: Zacarias Mcdonnell MD at 13:59 EST ,
--- NOTE | 2023-09-29 13:16 | EKG12_ITS ---
Test Reason : NEURO Blood Pressure : / mmHG Vent. Rate : 055 BPM Atrial Rate : 055 BPM P-R Int : 182 ms QRS Dur : 098 ms QT Int : 466 ms P-R-T Axes : 048 -21 -12 degrees QTc Int : 445 ms Sinus bradycardia with occasional Premature ventricular complexes Otherwise normal ECG Confirmed by JASMIN MENARD, ARIEL ([id number]), medical transcription editor FIFI HERNADEZ ([id number]) on 10/08/2023 2:11:21 PM Referred By: Confirmed By:ARIEL CASTELLANOS MD
--- NOTE | 2023-09-29 13:20 | EDS_ITS ---
HPI History of Present Illness Chief Complaint: Trauma Informant: patient and spouse/S.O. Narrative Narrative: Patient presents via private car with confusion and fall. states that she saw him in the kitchen at 930 this morning. She fell asleep but he called her from his cell phone stating that she needed to come outside. She found him sitting in a chair next to the front porch. There was a ladder outside that was laying over. She does not know what happened, but believes he was trying to trim bushes. Patient does not remember what happened and does not remember what he was doing outside. Nursing staff states family initially said they were concerned he was having a stroke. After discussion with she states there was no point where he had difficulty speaking or moving any extremities. He is repeating questions and seems confused, but this is more concerning for a concussion/head injury. 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 Chest pain DVT (deep venous thrombosis) Family history of heart disease GERD (gastroesophageal reflux disease) History of deep vein thrombosis of lower extremity HLD (hyperlipidemia) Non-ischemic cardiomyopathy Non-smoker NSVT (nonsustained ventricular tachycardia) Home Medications multivitamin,uw-pngp-ymacphyf 27 mg-0.4 mg tablet 1 tab PO DAILY supplement 10/28/15 [History Last Taken 02/08/23] cholecalciferol (vitamin D3) 25 mcg (1,000 unit) capsule 25 mcg PO DAILY s uppplement 05/31/20 [History Last Taken 02/08/23] sertraline 50 mg tablet (Zoloft) 50 mg PO DAILY 07/26/22 [History Last Taken Unknown] aspirin 81 mg tablet,delayed release 81 mg PO DAILY #30 tabs 02/09/23 [Rx Last Taken Unknown] atorvastatin 40 mg tablet 40 mg PO DAILY #30 tabs 02/09/23 [Rx Last Taken Unknown] ranolazine 500 mg tablet,extended release,12 hr 500 mg PO BID #180 tabs 04/05/23 [Rx Last Taken Unknown] ondansetron 4 mg disintegrating tablet 4 mg PO Q8H PRN PRN Nausea #10 tabs 05/28/23 [Rx Last Taken Unknown] oxycodone-acetaminophen 5 mg-325 mg tablet 1 tab PO Q6H PRN PRN Pain 3 days #12 TABLETS 05/28/23 [Rx Last Taken Unknown] tamsulosin 0.4 mg capsule (Flomax) 0.4 mg PO DAILY #7 caps 05/28/23 [Rx Last Taken Unknown] ascorbic acid (vitamin C) 500 mg capsule 1,000 mg PO DAILY supplement 08/02/23 [History Last Taken Unknown] hydrochlorothiazide 25 mg tablet 25 mg PO DAILY PRN 08/02/23 [History Last Taken Unknown] metoprolol succinate 25 mg tablet,extended release 24 hr 25 mg PO QHS #90 tabs 08/02/23 [Rx Last Taken Unknown] pantoprazole 40 mg tablet,delayed release 40 mg PO BID 08/02/23 [History Last Taken Unknown] potassium chloride 20 mEq tablet,extended release 20 meq PO DAILY 08/02/23 [History Last Taken Unknown] cyclobenzaprine 5 mg tablet 5 mg PO TID PRN muscle spasm #14 tabs 09/29/23 [Rx Last Taken Unknown] nitroglycerin 0.4 mg sublingual tablet 0.4 mg sublingual Q5M PRN chest pain #20 tabs 09/29/23 [Rx Last Taken Unknown] oxycodone 5 mg tablet 5 mg PO Q6H PRN pain 3 days #12 tabs 09/29/23 [Rx Last Taken Unknown] Allergy/AdvReac Type Severity Reaction Status Date / Time No Known Allergies Allergy Verified 09/29/23 13:15 Family History Father CAD (coronary artery disease) CVA (cerebral vascular accident) Myocardial infarction, Onset Age: 50 Other Family history of heart disease Surgical History History of foot surgery (12/2019) History of left heart catheterization (12/07/11) History of tonsillectomy History of total adrenalectomy pheochromocytoma excision Social History Smoking Status: Never smoker alcohol intake: current substance use type: does not use ROS ROS ED Constitutional Constitutional ED: Denies chills or fever(s) Eyes Eyes: Denies change in vision ENT ENT ED: Denies sore throat Cardiovascular Cardiovascular: Denies chest pain Respiratory/Chest Respiratory/Chest: Denies cough or dyspnea Gastrointestinal Gastrointestinal: Denies abdominal pain, nausea or vomiting Musculoskeletal Musculoskeletal: Reports back pain; Denies extremity pain Integumentary Reports Abrasions; Denies rash Neurologic Neurologic: Denies headache(s) or weakness Allergic/Immunologic Allergic/Immunologic ED: Denies lip swelling or urticaria EXAM Physical Exam Const Vital Signs: 09/29/23 13:15 09/29/23 13:22 09/29/23 14:15 Temperature 95.0 F L Temperature Source Temporal Pulse Rate 53 L 57 L Respiratory Rate 18 16 Respiratory Effort Normal Respiratory Depth Normal Respiratory Pattern Normal Blood Pressure 151/95 H 145/76 H Blood Pressure Mean 113 99 Pulse Ox 100 99 Oxygen Delivery Method Room Air Room Air Room Air 09/29/23 15:00 Temperature Temperature Source Pulse Rate 64 Respiratory Rate 14 Respiratory Effort Respiratory Depth Respiratory Pattern Blood Pressure 134/76 H Blood Pressure Mean 95 Pulse Ox 98 Oxygen Delivery Method Room Air Positive well nourished and well developed General Appearance ED: well developed Eyes PERRL Neck Neck Narrative: No C-spine tenderness. Chest Wall inspection of chest normal and palpation of chest normal Resp normal respiratory effort and clear to auscultation bilaterally Cardio regular rhythm Rate: regular rate GI GI Narrative: Abdomen soft and nontender. Large transverse abdominal scar. Back/Spine normal to inspection Back/Spine Narrative: No visible abrasions or ecchymosis to his back. No midline tenderness. Patient grabs his left flank and has intermittent spasms. Extremity Extremity Narrative: Superficial abrasions noted to the extensor surface of the left elbow. No bony tenderness with good range of motion. Neuro Neuro Narrative: Patient is alert but confused. He moves all 4 extremities. No slurred speech noted, but patient does repeat questions. MDM MDM MDM Narrative Medical decision making narrative: Patient placed on radiographer cardiac catheterization. IV line established. EKG obtained to evaluate for cardiac arrhythmia/ischemia. CT scan of the head, C-spine, chest, abdomen, and pelvis obtained. Patient given a small dose of fentanyl for pain. History & Record Review Discussion w/independent historian: Patient and Family Lab Data Attestation: I reviewed the patient's lab results. Labs: Laboratory Results - last 24 hr 09/29/23 13:20 WBC 6.8 RBC 4.85 Hgb 14.7 Hct 44.6 MCV 92.0 MCH 30.3 MCHC 33.0 RDW Std Deviation 48.1 H RDW Coeff of Ivonne 14.3 Plt Count 218 MPV 9.0 Immature Gran % (Auto) 0.400 Neut % (Auto) 60.4 Lymph % (Auto) 27.9 [place] % (Auto) 8.5 Eos % (Auto) 2.1 Baso % (Auto) 0.7 Absolute Neuts (auto) 4.1 Absolute Lymphs (auto) 1.90 Nucleated RBC % 0 Sodium 140 Potassium 4.0 Chloride 108 H Carbon Dioxide 27.0 Anion Gap 5 BUN 19 H Creatinine 1.19 Estim Creat Clear Calc 56.23 Est GFR (MDRD) Af Amer 77 Est GFR (MDRD) Non-Af 64 BUN/Creatinine Ratio 16.0 Glucose 151 H Calcium 9.3 Total Bilirubin 0.50 Direct Bilirubin 0.14 AST 22 ALT 27 Alkaline Phosphatase 87 Total Protein 7.2 Albumin 3.7 Globulin 3.5 Lipase 31 Radiography Diagnostic Testing: Clinical Impression(s) from Imaging Studies Brain CT 09/29/23 13:15 IMPRESSION: Chronic involutional changes of the brain. Electronically Signed: Zacarias Mcdonnell MD at 13:59 EST Reading Location ID and State: [facility] / [place] , Service support , Cervical Spine CT 09/29/23 13:15 IMPRESSION: Multilevel degenerative changes, as described above. Electronically Signed: Zacarias Mcdonnell MD at 14:07 EST Reading Location ID and State: [facility] / [place] , Service support , Chest/Abdomen/Pelvis CT 09/29/23 13:15 IMPRESSION: No acute fracture. No solid organ injury. No pneumothorax. Degenerative and postoperative change. Electronically Signed: Zacarias Mcdonnell MD at 14:23 EST , EKG Initial EKG: Attestation: I personally reviewed and interpreted this EKG as follows: Interpretation: Sinus Bradycardia (Minus bradycardia 55 bpm. PVCs noted. No acute ischemia.) Treatment and Re-Evaluation Narrative: Repeat evaluation patient lying back in bed comfortably. He will have intermittent spasms in his left mid to lower back. CBC was normal white count 6.8 with a hemoglobin of 14.7. Differential is unremarkable. Chemistry studies reveal a BUN of 19 and a creatinine 1.19. His glucose is 151. LFTs and lipase are normal. CT scan of the head reveals chronic involutional changes. CT the C-spine reveals degenerative changes with no acute findings. CT scan of the chest, abdomen, and pelvis with IV contrast reveals no evidence of acute fracture. No solid organ injury. No pneumothorax. Test results are discussed with the patient as well as family at bedside. They state that he still does not remember why he was on a ladder, but he does seem to be remembering other things. The abrasions noted to the left elbow will be cleansed and dressed. He has no bony tenderness here and I do not think he needs imaging. Patient was advised he has evidence of a concussion as well as musculoskeletal back pain and spasm. He will be treated with oxycodone and low- dose Flexeril. Return instructions were provided. Addendum: Patient reportedly lost his bottle of nitro tabs outside somewhere and does not know where they are. I will write him a new prescription. Discharge Plan Triage Chief Complaint: Trauma ED Provider: Jeane Naranjo Dx/Rx/DC Orders Clinical Impression: Muscle spasm, Back strain, Concussion, CHI (closed head injury), Fall, Abrasion of arm, left Instructions: ED Abrasion, ED Back Sprain/Strain, ED Concussion, ED Muscle Spasm Prescriptions: New nitroglycerin 0.4 mg tablet, sublingual 0.4 mg sublingual Q5M PRN (Reason: chest pain) Qty: 20 0RF Rx Instructions: do not exceed 3 doses per episode oxycodone 5 mg tablet 5 mg PO Q6H PRN (Reason: pain) 3 Days Qty: 12 0RF cyclobenzaprine 5 mg tablet 5 mg PO TID PRN (Reason: muscle spasm) Qty: 14 0RF No Action cholecalciferol (vitamin D3) 25 mcg (1,000 unit) capsule 25 mcg PO DAILY ascorbic acid (vitamin C) 500 mg capsule 1,000 mg PO DAILY hydrochlorothiazide 25 mg tablet 25 mg PO DAILY PRN sertraline [Zoloft] 50 mg tablet 50 mg PO DAILY Patient Comments: TAKE 1 TABLET BY MOUTH EVERY DAY pantoprazole 40 mg tablet,delayed release (DR/EC) 40 mg PO BID Patient Comments: TAKE 1 TABLET BY MOUTH TWICE A DAY potassium chloride 20 mEq tablet extended release 20 meq PO DAILY metoprolol succinate 25 mg tablet extended release 24 hr 25 mg PO QHS Qty: 90 3RF multivitamin,gz-qghg-hnbjiqtq 1 TABLET tablet 1 tab PO DAILY atorvastatin 40 mg Tablet 40 mg PO DAILY Qty: 30 0RF aspirin 81 mg tablet,delayed release (DR/EC) 81 mg PO DAILY Qty: 30 0RF oxycodone-acetaminophen [oxycodone-acetaminophen] 5-325 mg tablet 1 tab PO Q6H PRN PRN (Reason: Pain) 3 Days Qty: 12 0RF ondansetron [ondansetron] 4 mg tablet,disintegrating 4 mg PO Q8H PRN PRN (Reason: Nausea) Qty: 10 0RF tamsulosin [Flomax] 0.4 mg capsule 0.4 mg PO DAILY Qty: 7 0RF ranolazine 500 mg tablet extended release 12 hr 500 mg PO BID Qty: 180 3RF Primary Care Provider: Lincoln Henning Referrals: Lincoln Henning MD [Primary Care Provider] - 1 Week Disposition Disposition: Home, Self Care
[2023-09-29] MEDS: fentaNYL 100 MCG/2 ML Ampul 25 MCG IV (13:21)
[2023-09-29 13:26] LABS: Absolute Neutrophil Count 4.1 X10^3/uL (2.0-7.7); Basophil# 0.05 X10^3/uL; Basophil% 0.7 % (0-1); Eosinophil# 0.14 X10^3/uL; Eosinophils% 2.1 % (0-5); Hematocrit 44.6 % (40-54); Hemoglobin 14.7 g/dL (13.0-16.5); Lymphocyte % 27.9 % (19-41); Mean Corpuscular Hgb 30.3 pg (27.0-32.0); Monocyte# 0.58 X10^3/uL; Monocyte% 8.5 % (0-10); NRBC Flagged by Analyzer 0 % (0-5); Neutrophil # 4.11 X10^3/uL (2.7-7.7); Neutrophil % 60.4 % (47-70); Platelet Count 218 K/mm3 (150-450); RBC Distribution Width CV 14.3 % (11.6-14.6); RBC Distribution Width SD 48.1 fl (35.1-43.9); Red Blood Count 4.85 M/mm3 (4.6-6.2); White Blood Count 6.8 K/mm3 (4.4-11.0)
[2023-09-29 13:46] LABS: AST(SGOT) 22 U/L (15-37); Alanine Aminotransfer ALT/SGPT 27 U/L (16-61); Albumin, Serum 3.7 g/dL (3.2-5.0); Alkaline Phosphatase 87 U/L (45-117); Anion Gap 5 (5-15); BUN 19 mg/dL (7-18); Bilirubin, Direct 0.14 mg/dL (0.00-0.30); Calcium,Total 9.3 mg/dL (8.5-10.1); Chloride 108 mmol/L (98-107); Creatinine, Serum 1.19 mg/dL (0.70-1.30); EST Glomerular Filtration Rate 64 mL/min (>60); Est Glom Filt Rate - Afr Amer 77 mL/min (>60); Estimated Creatinine Clearance 56.23 ml/min; Globulin 3.5 g/dL (2.2-4.2); Glucose 151 mg/dL (74-106); Lipase 31 U/L (13-75); Protein, Total 7.2 g/dL (6.4-8.2); Sodium Level 140 mmol/L (136-145)
[2023-09-29] MEDS: 0.9% Normal Saline (1000mL) 1,000 ML 150 ML IV (14:14)
[2023-09-29 14:15] VITALS: BP 145/76; PULSE 57; RESP 16; O2SAT 99
[2023-09-29 15:00] VITALS: BP 134/76; PULSE 64; RESP 14; O2SAT 98
[2023-09-29 15:53] VITALS: BP 158/94; PULSE 64; RESP 16; O2SAT 97
== END 2023-09-29 15:55 | disposition home or self-care (01) ==
PROVIDERS: Emergency Provider Emergency Medicine; PCP Family Medicine; Visit Provider Emergency Medicine
DX: S06.0X0A Concussion without loss of consciousness, initial encounter (principal); E78.5 Hyperlipidemia, unspecified; S50.812A Abrasion of left forearm, initial encounter; S39.012A Strain of muscle, fascia and tendon of lower back, initial encounter; M62.838 Other muscle spasm; W19.XXXA Unspecified fall, initial encounter; Z79.899 Other long term (current) drug therapy; Z79.82 Long term (current) use of aspirin; K21.9 Gastro-esophageal reflux disease without esophagitis
CPT/HCPCS: 70450; 71260; 72125; 74177; 80048; 80076; 83690; 85025; 93005; 96361; 96374; 99284; Q9967

== ENCOUNTER 2024-07-31 07:46 | Inpatient (IN) | payer MEDICARE, SELFPAY ==
[2024-07-31] VITALS (37 sets, daily range): BP systolic 91–122; BP diastolic 54–76; PULSE 44–64; RESP 8–96; TEMP 35.9–37.1; O2SAT 89–100; BMI 30.1; BMI 28.4
--- NOTE | 2024-07-31 07:49 | EKG12_ITS ---
Test Reason : CP Blood Pressure : / mmHG Vent. Rate : 061 BPM Atrial Rate : 061 BPM P-R Int : 202 ms QRS Dur : 098 ms QT Int : 440 ms P-R-T Axes : 033 -28 -13 degrees QTc Int : 442 ms Normal sinus rhythm Normal ECG Confirmed by Garcia Kumar ([id number]), graphic editor SUZAN HERBERT ([id number]) on 08/03/2024 11:14:52 AM Referred By: Confirmed By:Garcia Kumar
--- NOTE | 2024-07-31 07:57 | ED.VIS.CHEST ---
HPI History of Present Illness Chief Complaint: Chest Pain Narrative Narrative: Patient is a 73-year-old male with past medical history of nonsustained ventricular tachycardia, GERD, hyperlipidemia, DAVE with a chief complaint of chest pain. States he woke up around 6 AM and noted that he was having some difficulty catching his breath on his CPAP states that he did take it off. He states that he then developed some left-sided chest pressure and the pain went down his left arm. Patient states that he has not had a stress test recently and recently had a follow-up visit with his primary care physician which noted that it may be time for a stress test who presented to the emergency department. Patient states that he took 2 nitroglycerin and noted that the pain improved after the second nitroglycerin. He states that he is currently pain-free here in the emergency department. 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 GERD (gastroesophageal reflux disease) Chest pain HLD (hyperlipidemia) Family history of heart disease Home Medications ?Medication ?Instructions ?Recorded ?Last Taken ?Type multivitamin,[id number]-hffr-ecldnozh 27 1 tab PO DAILY supplement 10/28/15 02/08/23 History mg-0.4 mg tablet aspirin 81 mg tablet,delayed 81 mg PO DAILY #30 tabs 02/09/23 Unknown Rx release atorvastatin 40 mg tablet 40 mg PO DAILY #30 tabs 02/09/23 Unknown Rx ascorbic acid (vitamin C) 500 mg 1,000 mg PO DAILY supplement 08/02/23 Unknown History capsule pantoprazole 40 mg tablet,delayed 40 mg PO BID 08/02/23 Unknown History release nitroglycerin 0.4 mg sublingual 0.4 mg sublingual Q5M PRN chest 09/29/23 Unknown Rx tablet pain #20 tabs potassium chloride 20 mEq 20 meq PO DAILY #90 tabs 03/20/24 Unknown Rx tablet,extended release metoprolol succinate 25 mg 25 mg PO QHS #90 TABLETS 06/16/24 Unknown Rx tablet,extended release 24 hr ranolazine 1,000 mg 1,000 mg PO BID #180 tabs 06/16/24 Unknown Rx tablet,extended release,12 hr hydrochlorothiazide 12.5 mg tablet 12.5 mg PO DAILY 07/31/24 Unknown History Allergy/AdvReac Type Severity Reaction Status Date / Time No Known Allergies Allergy Verified 07/31/24 07:56 Family History Father CAD (coronary artery disease) CVA (cerebral vascular accident) Myocardial infarction, Onset Age: 50 Other Family history of heart disease Surgical History History of foot surgery (12/2019) History of left heart catheterization (12/07/11) pheochromocytoma excision History of tonsillectomy History of total adrenalectomy Social History Smoking Status: Never smoker alcohol intake: current substance use type: does not use ROS ROS ED ROS Narrative Constitutional: Denies headaches, lightheadedness, dizziness, fevers, chills Eyes: Denies change in vision double vision blurry vision Cardiovascular: Complains of chest pain as noted above denies palpitations Respiratory: Complaint shortness of breath as noted above, denies coughing wheezing Abdomen: Denies any abdominal pain nausea vomiting diarrhea : Denies any urinary symptoms Neurological: Denies numbness, weakness, tingling Musculoskeletal: Denies back pain Skin: Denies rashes or lesions EXAM Physical Exam Narrative Exam Narrative: General: Patient lying in bed rest comfortably did not appear to be in acute distress Head: Atraumatic, normocephalic Eyes: PERRL bilaterally, EOMI by, no conjunctival injection noted Neck: Soft, supple, trachea midline Cardiovascular: Regular rate and rhythm no murmurs gallops rubs noted Respiratory: Clear to auscultation bilaterally no rales rhonchi wheeze noted Abdomen: Soft, nondistended, nontender to palpation, bowel sounds present x 4 Extremities: +5/5 strength noted in the bilateral upper and lower extremities, no pedal edema on exam, radial pulses +2/4 in the bilateral per extremities Neurological: Patient following commands knew that he was at [facility] year is 2023 Skin: Warm, dry, intact Const Vital Signs: 07/31/24 07:47 07/31/24 07:49 07/31/24 07:51 Temperature 98.7 F Temperature Source Oral Pulse Rate 64 Respiratory Rate 96 H Respiratory Effort Normal Blood Pressure 118/76 Blood Pressure Mean 90 Pulse Ox 96 97 Oxygen Delivery Method Room Air Room Air Oxygen Flow Rate (L/min) 07/31/24 07:52 07/31/24 08:00 07/31/24 08:15 Temperature Temperature Source Pulse Rate 63 58 L Respiratory Rate 16 20 H Respiratory Effort Blood Pressure 110/74 122/66 H Blood Pressure Mean 86 84 Pulse Ox 97 92 Oxygen Delivery Method Oxygen Flow Rate (L/min) 07/31/24 08:28 07/31/24 08:30 07/31/24 08:45 Temperature Temperature Source Pulse Rate 56 L 58 L 54 L Respiratory Rate 16 15 Respiratory Effort Blood Pressure 122/66 H 114/67 116/69 Blood Pressure Mean 82 85 Pulse Ox 93 92 Oxygen Delivery Method Oxygen Flow Rate (L/min) 07/31/24 08:47 07/31/24 09:00 07/31/24 09:00 Temperature Temperature Source Pulse Rate 55 L 56 L Respiratory Rate 14 13 Respiratory Effort Blood Pressure 116/69 111/70 116/70 Blood Pressure Mean 84 83 83 Pulse Ox 93 92 Oxygen Delivery Method Room Air Room Air Oxygen Flow Rate (L/min) 07/31/24 09:02 07/31/24 09:15 07/31/24 09:30 Temperature Temperature Source Pulse Rate 55 L 52 L 57 L Respiratory Rate 15 12 14 Respiratory Effort Blood Pressure 111/70 109/64 110/69 Blood Pressure Mean 82 78 82 Pulse Ox 89 90 91 Oxygen Delivery Method Oxygen Flow Rate (L/min) 07/31/24 09:45 07/31/24 10:00 07/31/24 10:00 Temperature Temperature Source Pulse Rate 53 L 48 L 54 L Respiratory Rate 11 L 12 15 Respiratory Effort Blood Pressure 103/70 103/65 115/69 Blood Pressure Mean 80 77 80 Pulse Ox 94 94 92 Oxygen Delivery Method Room Air Oxygen Flow Rate (L/min) 07/31/24 10:15 07/31/24 10:30 07/31/24 10:45 Temperature Temperature Source Pulse Rate 52 L 54 L 50 L Respiratory Rate 12 20 H 13 Respiratory Effort Blood Pressure 104/65 111/62 103/65 Blood Pressure Mean 76 70 78 Pulse Ox 93 93 92 Oxygen Delivery Method Oxygen Flow Rate (L/min) 07/31/24 11:00 07/31/24 11:00 07/31/24 11:15 Temperature Temperature Source Pulse Rate 53 L 52 L 49 L Respiratory Rate 18 14 8 L Respiratory Effort Blood Pressure 101/57 L 98/63 100/62 Blood Pressure Mean 71 76 74 Pulse Ox 93 94 93 Oxygen Delivery Method Nasal Cannula Oxygen Flow Rate (L/min) 2 07/31/24 11:30 07/31/24 11:45 07/31/24 12:00 Temperature Temperature Source Pulse Rate 48 L 57 L Respiratory Rate 15 17 Respiratory Effort Blood Pressure 101/57 L 107/71 104/67 Blood Pressure Mean 71 82 79 Pulse Ox 94 96 Oxygen Delivery Method Room Air Oxygen Flow Rate (L/min) 07/31/24 12:00 07/31/24 12:15 07/31/24 12:31 Temperature Temperature Source Pulse Rate 55 L 57 L Respiratory Rate 12 16 Respiratory Effort Blood Pressure 104/67 102/63 Blood Pressure Mean 78 75 Pulse Ox 95 96 Oxygen Delivery Method Oxygen Flow Rate (L/min) 07/31/24 12:45 07/31/24 12:48 07/31/24 13:00 Temperature 97.6 F L Temperature Source Pulse Rate 52 L 54 L 53 L Respiratory Rate 16 17 23 H Respiratory Effort Blood Pressure 98/73 98/73 104/65 Blood Pressure Mean 81 81 77 Pulse Ox 95 96 93 Oxygen Delivery Method Oxygen Flow Rate (L/min) 07/31/24 13:15 07/31/24 13:30 07/31/24 13:45 Temperature Temperature Source Pulse Rate 52 L 44 L Respiratory Rate 13 10 L Respiratory Effort Blood Pressure 91/54 L 99/67 105/69 Blood Pressure Mean 68 79 80 Pulse Ox 96 92 Oxygen Delivery Method Oxygen Flow Rate (L/min) 07/31/24 14:00 07/31/24 14:15 Temperature Temperature Source Pulse Rate 44 L 55 L Respiratory Rate 12 20 H Respiratory Effort Blood Pressure 108/74 104/61 Blood Pressure Mean 85 75 Pulse Ox 94 Oxygen Delivery Method Oxygen Flow Rate (L/min) MDM MDM MDM Narrative Medical decision making narrative: Patient is a 73-year-old male who presented to the emergency department chief complaint of chest pain. Patient will have a workup performed here on the differential diagnose includes but not limited to ACS, pneumonia, hypertensive emergency, flash pulmonary edema. Once workup is obtained reviewed he will be reevaluated. Patient is pain-free at this point time. Patient's CBC was reviewed showed no evidence leukocytosis white blood count normal at 5.3, hemoglobin 11.8, platelet count normal at 249. Patient sodium normal 143, potassium normal 3.7, creatinine normal at 1.18. Patient troponin normal at 6 with a delta troponin obtained normal at 4, proBNP normal at 58.1. Patient's EKG was reviewed and showed sinus rhythm with a rate of 61 bpm. Patient's chest x-ray was reviewed as well which showed no acute abnormalities seen. Patient did have oxygen saturation in the low 90s given his history of PE I did add on a D-dimer which was 0.71 however with age-adjusted VTE is unlikely therefore no indication for CT angiography of his chest at this point time. At this point time do believe the patient will warrant admission to the hospital as he was told by his primary care physician he needs a stress test and his pain did improve with nitroglycerin. We did page the hospitalist couple times for admission and there was delay secondary to critically ill patient in the emergency department. Lab Data Labs: Laboratory Results - last 24 hr 07/31/24 07/31/24 07:50 10:23 WBC 5.3 RBC 4.29 L Hgb 11.8 L Hct 37.5 L MCV 87.4 MCH 27.5 MCHC 31.5 L RDW Std Deviation 48.4 H RDW Coeff of Ivonne 15.3 H Plt Count 249 MPV 9.3 Immature Gran % (Auto) 0.200 Neut % (Auto) 47.5 Lymph % (Auto) 37.6 [place] % (Auto) 11.5 H Eos % (Auto) 2.8 Baso % (Auto) 0.4 Absolute Neuts (auto) 2.5 Absolute Lymphs (auto) 2.00 Nucleated RBC % 0 D-Dimer Quant (PE/DVT) 0.71 H* Sodium 143 Potassium 3.7 Chloride 109 H Carbon Dioxide 26.0 Anion Gap 8 BUN 22 H Creatinine 1.18 Estim Creat Clear Calc 63.61 Est GFR (MDRD) Af Amer 77 Est GFR (MDRD) Non-Af 64 BUN/Creatinine Ratio 18.6 Glucose 145 H Calcium 9.1 Troponin I High Sens 6 4 B-Natriuretic Peptide 58.1 Radiography Diagnostic Testing: Clinical Impression(s) from Imaging Studies Chest X-Ray 07/31/24 08:09 IMPRESSION: No acute abnormality is seen. Electronically Signed: Oneal Connor MD at 8:20 EDT , Discharge Plan Triage Chief Complaint: Chest Pain ED Provider: Shawn Gill Dx/Rx/DC Orders Clinical Impression: Chest pain Prescriptions: No Action ascorbic acid (vitamin C) 500 mg capsule 1,000 mg PO DAILY pantoprazole 40 mg tablet,delayed release (DR/EC) 40 mg PO BID Patient Comments: TAKE 1 TABLET BY MOUTH TWICE A DAY multivitamin,qq-gkuv-kfsthdaw 1 TABLET tablet 1 tab PO DAILY atorvastatin 40 mg Tablet 40 mg PO DAILY Qty: 30 0RF aspirin 81 mg tablet,delayed release (DR/EC) 81 mg PO DAILY Qty: 30 0RF nitroglycerin 0.4 mg tablet, sublingual 0.4 mg sublingual Q5M PRN (Reason: chest pain) Qty: 20 0RF Rx Instructions: do not exceed 3 doses per episode hydrochlorothiazide 12.5 mg tablet 12.5 mg PO DAILY potassium chloride 20 mEq tablet extended release 20 meq PO DAILY Qty: 90 3RF ranolazine 1,000 mg tablet extended release 12 hr 1,000 mg PO BID Qty: 180 3RF metoprolol succinate 25 mg tablet extended release 24 hr 25 mg PO QHS Qty: 90 3RF Primary Care Provider: Lincoln Henning Referrals: Lincoln Henning MD [Primary Care Provider] - Print Language: Czech
--- NOTE | 2024-07-31 08:09 | RAD_ITS ---
STUDY: X-RAY CHEST REASON FOR EXAM: Male, 73 years old. Chest pain TECHNIQUE: PA and lateral views of the chest. COMPARISON: Comparison is made with prior study February 08, 2023. FINDINGS: EKG electrodes are seen. The lungs are clear and expanded. There is no demonstrated pleural abnormality. Normal size heart. Normal mediastinum and efrain. Normal visualized pulmonary arteries. There is atherosclerotic tortuosity of the aortic arch and descending thoracic aorta. There are diffuse degenerative changes of the visualized thoracic spine. Normal visualized ribs, clavicles, and shoulders. There is no demonstrated abnormality of the visualized soft tissue structures of the upper abdomen. RAD/Chest PA and Lateral IMPRESSION: No acute abnormality is seen. Electronically Signed: Oneal Connor MD at 8:20 EDT ,
--- NOTE | 2024-07-31 08:21 | ED.RN ---
THIS NURSE NOTIFIED DR PRINCE PT'S CHEST PAIN HAS RETURNED AND HE CALLED OUT, PAIN IS AT A 2/10. WAITING ON ORDERS FROM DR PRINCE
[2024-07-31 08:23] LABS: Absolute Neutrophil Count 2.5 X10^3/uL (2.0-7.7); Basophil# 0.02 X10^3/uL; Basophil% 0.4 % (0-1); Eosinophil# 0.15 X10^3/uL; Eosinophils% 2.8 % (0-5); Hematocrit 37.5 % (40-54); Hemoglobin 11.8 g/dL (13.0-16.5); Lymphocyte % 37.6 % (19-41); Mean Corp Hgb Conc 31.5 g/dL (32-36); Mean Corpuscular Hgb 27.5 pg (27.0-32.0); Mean Corpuscular Volume 87.4 fL (80-94); Mean Platelet Vol. 9.3 fl (6.2-12.0); Monocyte# 0.61 X10^3/uL; Monocyte% 11.5 % (0-10); NRBC Flagged by Analyzer 0 % (0-5); Neutrophil # 2.53 X10^3/uL (2.7-7.7); Neutrophil % 47.5 % (47-70); Platelet Count 249 K/mm3 (150-450); RBC Distribution Width CV 15.3 % (11.6-14.6); RBC Distribution Width SD 48.4 fl (35.1-43.9); Red Blood Count 4.29 M/mm3 (4.6-6.2); White Blood Count 5.3 K/mm3 (4.4-11.0)
[2024-07-31] MEDS: Aspirin 81 MG TAB.CHEW 324 MG PO (08:27)
[2024-07-31] MEDS: Nitroglycerin Oint 1 INCH PACKET TD (08:28)
[2024-07-31 08:55] LABS: Anion Gap 8 (5-15); BUN 22 mg/dL (7-18); BUN/Creat Ratio 18.6 RATIO (10-20); Calcium,Total 9.1 mg/dL (8.5-10.1); Chloride 109 mmol/L (98-107); Creatinine, Serum 1.18 mg/dL (0.70-1.30); EST Glomerular Filtration Rate 64 mL/min (>60); Est Glom Filt Rate - Afr Amer 77 mL/min (>60); Estimated Creatinine Clearance 63.61 ml/min; Glucose 145 mg/dL (74-106); Potassium 3.7 mmol/L (3.5-5.1); Sodium Level 143 mmol/L (136-145); Troponin-I HS (w/2H Reflex) 6 pg/mL (3.0-78.0)
[2024-07-31 10:19] LABS: Reflex Troponin-HS? (from REC) Y
[2024-07-31 10:20] LABS: D-Dimer Quantitative (DVT/PE) 0.71 FEU/ug/m (0.27-0.49)
[2024-07-31 11:16] LABS: Troponin-I HS 4 pg/mL (3.0-78.0)
[2024-07-31 15:02] LABS: BNP,B-Type NATRIURETIC PEPTIDE 58.1 pg/mL (0-100)
--- NOTE | 2024-07-31 15:44 | PCM.HP.STD ---
HPI - General General Date of Admission: 07/31/24 HPI Narrative KACI BEAN, is a 73 M who presents to the hospital with chest pain. This morning he woke up feeling a little short of breath that his CPAP was not working right so he took it off at around 6 AM and then noticed some left-sided chest pain. This was fairly typical chest pain in nature however for the first time it was associated with left arm pain going up into his jaw which is why he presented to the hospital. Initial workup was unremarkable, delta troponin was negative. EKG is nonischemic. He did have a D-dimer because of the continued chest pain but this was negative for age. He says that he still has some intermittent chest pain after the Nitropaste but he does not currently have any left arm pain. 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 GERD (gastroesophageal reflux disease) Chest pain HLD (hyperlipidemia) Family history of heart disease Home Medications ?Medication ?Instructions ?Recorded ?Last Taken ?Type multivitamin,[id number]-[id number] 27 1 tab PO DAILY supplement 10/28/15 02/08/23 History mg-0.4 mg tablet aspirin 81 mg tablet,delayed 81 mg PO DAILY heart health #30 02/09/23 Unknown Rx release tabs atorvastatin 40 mg tablet 40 mg PO DAILY cholesterol #30 tabs 02/09/23 Unknown Rx ascorbic acid (vitamin C) 500 mg 1,000 mg PO DAILY supplement 08/02/23 Unknown History capsule pantoprazole 40 mg tablet,delayed 40 mg PO BID GERD 08/02/23 Unknown History release nitroglycerin 0.4 mg sublingual 0.4 mg sublingual Q5M PRN chest 09/29/23 Unknown Rx tablet pain #20 tabs potassium chloride 20 mEq 20 meq PO DAILY supplement #90 tabs 03/20/24 Unknown Rx tablet,extended release metoprolol succinate 25 mg 25 mg PO QHS heart health #90 06/16/24 Unknown Rx tablet,extended release 24 hr TABLETS ranolazine 1,000 mg 1,000 mg PO BID #180 tabs 06/16/24 Unknown Rx tablet,extended release,12 hr hydrochlorothiazide 12.5 mg tablet 12.5 mg PO DAILY diuretic 07/31/24 Unknown History Allergy/AdvReac Type Severity Reaction Status Date / Time No Known Allergies Allergy Verified 07/31/24 07:56 Family History Father CAD (coronary artery disease) CVA (cerebral vascular accident) Myocardial infarction, Onset Age: 50 Other Family history of heart disease Surgical History History of foot surgery (12/2019) History of left heart catheterization (12/07/11) pheochromocytoma excision History of tonsillectomy History of total adrenalectomy Social History Smoking Status: Never smoker alcohol intake: current substance use type: does not use ROS Constitutional Constitutional: Denies chills, fatigue, fever(s) or malaise Eyes Eyes: Denies blurry vision ENT HEENT: Denies headache(s) or nasal discharge Cardiovascular Cardiovascular: Reports chest pain; Denies dyspnea on exertion or syncope Respiratory/Chest Respiratory/Chest: Denies cough, shortness of breath at rest or shortness of breath with exertion Gastrointestinal Gastrointestinal: Denies constipation, diarrhea, nausea or vomiting Genitourinary Genitourinary: Denies dysuria Neurologic Neurologic: Denies focal weakness, numbness or tremor(s) Psychiatric Psychiatric: Denies anxiety or depression Vital Signs Vital Signs Vital Signs: 07/31/24 07:47 07/31/24 07:49 07/31/24 07:51 Temperature 98.7 F Temperature Source Oral Pulse Rate 64 Respiratory Rate 96 H Respiratory Effort Normal Blood Pressure 118/76 Blood Pressure Mean 90 Pulse Ox 96 97 Oxygen Delivery Method Room Air Room Air Oxygen Flow Rate (L/min) 07/31/24 07:52 07/31/24 08:00 07/31/24 08:15 Temperature Temperature Source Pulse Rate 63 58 L Respiratory Rate 16 20 H Respiratory Effort Blood Pressure 110/74 122/66 H Blood Pressure Mean 86 84 Pulse Ox 97 92 Oxygen Delivery Method Oxygen Flow Rate (L/min) 07/31/24 08:28 07/31/24 08:30 07/31/24 08:45 Temperature Temperature Source Pulse Rate 56 L 58 L 54 L Respiratory Rate 16 15 Respiratory Effort Blood Pressure 122/66 H 114/67 116/69 Blood Pressure Mean 82 85 Pulse Ox 93 92 Oxygen Delivery Method Oxygen Flow Rate (L/min) 07/31/24 08:47 07/31/24 09:00 07/31/24 09:00 Temperature Temperature Source Pulse Rate 55 L 56 L Respiratory Rate 14 13 Respiratory Effort Blood Pressure 116/69 111/70 116/70 Blood Pressure Mean 84 83 83 Pulse Ox 93 92 Oxygen Delivery Method Room Air Room Air Oxygen Flow Rate (L/min) 07/31/24 09:02 07/31/24 09:15 07/31/24 09:30 Temperature Temperature Source Pulse Rate 55 L 52 L 57 L Respiratory Rate 15 12 14 Respiratory Effort Blood Pressure 111/70 109/64 110/69 Blood Pressure Mean 82 78 82 Pulse Ox 89 90 91 Oxygen Delivery Method Oxygen Flow Rate (L/min) 07/31/24 09:45 07/31/24 10:00 07/31/24 10:00 Temperature Temperature Source Pulse Rate 53 L 48 L 54 L Respiratory Rate 11 L 12 15 Respiratory Effort Blood Pressure 103/70 103/65 115/69 Blood Pressure Mean 80 77 80 Pulse Ox 94 94 92 Oxygen Delivery Method Room Air Oxygen Flow Rate (L/min) 07/31/24 10:15 07/31/24 10:30 07/31/24 10:45 Temperature Temperature Source Pulse Rate 52 L 54 L 50 L Respiratory Rate 12 20 H 13 Respiratory Effort Blood Pressure 104/65 111/62 103/65 Blood Pressure Mean 76 70 78 Pulse Ox 93 93 92 Oxygen Delivery Method Oxygen Flow Rate (L/min) 07/31/24 11:00 07/31/24 11:00 07/31/24 11:15 Temperature Temperature Source Pulse Rate 53 L 52 L 49 L Respiratory Rate 18 14 8 L Respiratory Effort Blood Pressure 101/57 L 98/63 100/62 Blood Pressure Mean 71 76 74 Pulse Ox 93 94 93 Oxygen Delivery Method Nasal Cannula Oxygen Flow Rate (L/min) 2 07/31/24 11:30 07/31/24 11:45 07/31/24 12:00 Temperature Temperature Source Pulse Rate 48 L 57 L Respiratory Rate 15 17 Respiratory Effort Blood Pressure 101/57 L 107/71 104/67 Blood Pressure Mean 71 82 79 Pulse Ox 94 96 Oxygen Delivery Method Room Air Oxygen Flow Rate (L/min) 07/31/24 12:00 07/31/24 12:15 07/31/24 12:31 Temperature Temperature Source Pulse Rate 55 L 57 L Respiratory Rate 12 16 Respiratory Effort Blood Pressure 104/67 102/63 Blood Pressure Mean 78 75 Pulse Ox 95 96 Oxygen Delivery Method Oxygen Flow Rate (L/min) 07/31/24 12:45 07/31/24 12:48 07/31/24 13:00 Temperature 97.6 F L Temperature Source Pulse Rate 52 L 54 L 53 L Respiratory Rate 16 17 23 H Respiratory Effort Blood Pressure 98/73 98/73 104/65 Blood Pressure Mean 81 81 77 Pulse Ox 95 96 93 Oxygen Delivery Method Oxygen Flow Rate (L/min) 07/31/24 13:15 07/31/24 13:30 07/31/24 13:45 Temperature Temperature Source Pulse Rate 52 L 44 L Respiratory Rate 13 10 L Respiratory Effort Blood Pressure 91/54 L 99/67 105/69 Blood Pressure Mean 68 79 80 Pulse Ox 96 92 Oxygen Delivery Method Oxygen Flow Rate (L/min) 07/31/24 14:00 07/31/24 14:15 Temperature Temperature Source Pulse Rate 44 L 55 L Respiratory Rate 12 20 H Respiratory Effort Blood Pressure 108/74 104/61 Blood Pressure Mean 85 75 Pulse Ox 94 Oxygen Delivery Method Oxygen Flow Rate (L/min) Weight Weight: 209 lb 14.081 oz Body Mass Index (BMI) 30.1 Physical Exam Narrative General: Alert, Oriented x3, Cooperative, No apparent distress HEENT: Atraumatic, PERRLA, EOMI, Normocephalic Oral: Moist Mucosa Neck: Supple, No JVD Lungs: Diminished, Normal air movement, No rhonchi, No wheeze, No rales Cardiovascular: Regular rate, Regular Rhythm, Normal S1, Normal S2, No murmurs Abdomen: Soft, Non Tender, Non-Distended, No Hepato-splenomegaly Extremities: No edema, Capillary Refill Less than 3 Seconds Skin: No rashes, No breakdown Musculoskeletal: No Tenderness to Palpation of Joints or Extremities Neurological: No focal neurological deficits, Motor Exam 5/5 strength throughout, Sensory exam intact to light touch and pain Psych/Mental Status: Normal Affect, Appropriate Results Lab / Micro Data 07/31/24 07:50 07/31/24 07:50 Labs: Laboratory Results - last 24 hr 07/31/24 07:50: WBC 5.3, RBC 4.29 L, Hgb 11.8 L, Hct 37.5 L, MCV 87.4, MCH 27.5, MCHC 31.5 L, RDW Std Deviation 48.4 H, RDW Coeff of Ivonne 15.3 H, Plt Count 249, MPV 9.3, Immature Gran % (Auto) 0.200, Neut % (Auto) 47.5, Lymph % (Auto) 37.6, [place] % (Auto) 11.5 H, Eos % (Auto) 2.8, Baso % (Auto) 0.4, Absolute Neuts (auto) 2.5, Absolute Lymphs (auto) 2.00, Nucleated RBC % 0, D-Dimer Quant (PE/DVT) 0.71 H*, Sodium 143, Potassium 3.7, Chloride 109 H, Carbon Dioxide 26.0, Anion Gap 8, BUN 22 H, Creatinine 1.18, Estim Creat Clear Calc 63.61, Est GFR (MDRD) Af Amer 77, Est GFR (MDRD) Non-Af 64, BUN/Creatinine Ratio 18.6, Glucose 145 H, Calcium 9.1, Troponin I High Sens 6, B-Natriuretic Peptide 58.1 07/31/24 10:23: Troponin I High Sens 4 Imaging Radiology Impression Chest X-Ray 07/31/24 08:09 IMPRESSION: No acute abnormality is seen. Electronically Signed: Oneal Connor MD at 8:20 EDT Reading Location ID and State: [address] [place] [address] , Service support , Assessment & Plan Assessment/Plan (1) Chest pain: PLAN: Plan 1. Chest pain/essential HTN/HLD ? I will obtain a stress test tomorrow ? Will obtain a troponin series, first 2 were normal ? Continue with his aspirin and his Lipitor ? Continue with his home blood pressure medications ? Will monitor make adjustments as necessary ? He is currently with Nitropaste on 2. GERD ? Stable ? Continue with PPI DVT: Ambulation 75 minutes was spent on direct patient care, including documentation as well as chart review and collaboration with colleagues Charges/Coding Visit Charges Inpatient E&M: 24153 Init Hosp L3
[2024-07-31 16:54] LABS: Troponin-I HS 5 pg/mL (3.0-78.0)
[2024-07-31] MEDS: Metoprolol(XL)Succ 25 MG Tablet PO (21:25)
[2024-07-31] MEDS: Atorvastatin Calcium 40 MG Tablet PO (21:25)
[2024-07-31] MEDS: Pantoprazole Sodium 40 MG Tablet PO (21:25)
[2024-07-31] MEDS: Ranolazine 500 MG Tablet 1000 MG PO (21:25)
--- NOTE | 2024-08-01 05:55 | EKG12_ITS ---
Test Reason : stress test Blood Pressure : / mmHG Vent. Rate : 053 BPM Atrial Rate : 053 BPM P-R Int : 294 ms QRS Dur : 100 ms QT Int : 454 ms P-R-T Axes : 044 -23 -12 degrees QTc Int : 426 ms Sinus bradycardia with 1st degree A-V block Otherwise normal ECG Confirmed by Garcia Kumar ([id number]), assignment editor SUZAN HERBERT ([id number]) on 08/03/2024 10:43:13 AM Referred By: Confirmed By:Garcia Kumar
[2024-08-01 06:09] VITALS: BP 129/76; PULSE 54; RESP 15; TEMP 35.9; O2SAT 96
[2024-08-01] MEDS: Aspirin E.C. 81 MG Tablet PO (06:14)
[2024-08-01 08:57] LABS: Hematocrit 35.9 % (40-54); Hemoglobin 11.2 g/dL (13.0-16.5); Mean Corp Hgb Conc 31.2 g/dL (32-36); Mean Corpuscular Hgb 27.4 pg (27.0-32.0); Mean Corpuscular Volume 87.8 fL (80-94); Mean Platelet Vol. 9.1 fl (6.2-12.0); Platelet Count 206 K/mm3 (150-450); RBC Distribution Width CV 15.3 % (11.6-14.6); RBC Distribution Width SD 49.5 fl (35.1-43.9); Red Blood Count 4.09 M/mm3 (4.6-6.2); White Blood Count 5.5 K/mm3 (4.4-11.0)
--- NOTE | 2024-08-01 09:55 | STRESSREP ---
Stress Test Report Date: 08/01/2024 Procedure: Pharmacologic stress nuclear imaging study Indications: Chest pain Consent: Per the patient Procedure: The patient underwent pharmacologic (Regadenoson) evaluation with a peak heart rate of 78 beats per minute (53% predicted maximal heart rate) and a peak blood pressure of 138/82 mmHg. The baseline ECG demonstrated normal sinus rhythm. EKG during lexiscan infusion revealed no significant ischemic changes. EKG post infusion revealed no significant ischemic changes [There were no cardiac dysrhythmias pretest, during pharmacologic infusion, or recovery]. [There was no complaint of chest discomfort during pharmacologic infusion or recovery]. The examination was discontinued secondary to completion of protocol. Impression: 1. Lexiscan stress test test is negative for Lexiscan infusion induced EKG changes of ischemia. 2. Lexiscan stress test test is negative for Lexiscan infusion induced chest pain. 3. Results of the nuclear portion of the test is as below Myocardial perfusion imaging study: Technique: The patient was injected with 12 millicuries of technetium 99m Cardiolite and subsequently rest SPECT Cardiolite nuclear imaging was obtained in the horizontal long, vertical long, and short axis views. The patient underwent pharmacologic [Regadenoson 0.4mg] evaluation. Please see above for details. The patient was injected with 36 millicuries of technetium 99m Cardiolite and subsequently stress SPECT Cardiolite nuclear imaging was obtained in the horizontal long, vertical long, and short axis views. A gated Cardiolite study at peak stress was obtained. Interpretation: Rest and stress SPECT Cardiolite nuclear imaging status post realignment, normalization, and attenuation correction demonstrate no evidence of significant ischemia or infarction. Gated images reveal no significant regional wall motion abnormalities. The reported LVEF is 59%. Impression: 1. There is no evidence of significant ischemia or infarction. 2. Estimated ejection fraction is 59%. This note was generated with [email or web address] software. It may contain incorrect words, spelling, and punctuation that were not noted in checking the note before signing.
[2024-08-01 09:59] VITALS: BP 130/79; PULSE 56; RESP 16; TEMP 36.6; O2SAT 97
[2024-08-01] MEDS: hydroCHLOROthiazide 12.5mg 12.5 MG PO (10:05)
[2024-08-01] MEDS: Potassium Chloride Oral Tablet 20 MEQ PO (10:05)
[2024-08-01] MEDS: Pantoprazole Sodium 40 MG Tablet PO ×2 (10:05→20:57)
[2024-08-01] MEDS: Ranolazine 500 MG Tablet 1000 MG PO ×2 (10:05→20:57)
[2024-08-01 10:17] LABS: Anion Gap 7 (5-15); BUN 19 mg/dL (7-18); BUN/Creat Ratio 16.1 RATIO (10-20); Calcium,Total 8.9 mg/dL (8.5-10.1); Chloride 109 mmol/L (98-107); Creatinine, Serum 1.18 mg/dL (0.70-1.30); EST Glomerular Filtration Rate 64 mL/min (>60); Est Glom Filt Rate - Afr Amer 77 mL/min (>60); Estimated Creatinine Clearance 61.93 ml/min; Ferritin 13 ng/mL (26-388); Glucose 179 mg/dL (74-106); Iron 34 ug/dL (65-175); Iron Binding Capacity,Total 390 ug/dL (250-450); PERCENT IRON SATURATION 8.7 % (15.0-55.0); Potassium 3.8 mmol/L (3.5-5.1); Sodium Level 140 mmol/L (136-145)
--- NOTE | 2024-08-01 12:23 | CT_ITS ---
STUDY: CT ABDOMEN AND PELVIS WITH CONTRAST REASON FOR EXAM: Male, 73 years old. worsening iron def anemia w/ abd discomfort RADIATION DOSAGE (If Supplied By Facility): CTDIvol = ( 20.78 ) mGy, DLP = ( 914.11 ) mGycm TECHNIQUE: Transaxial images were obtained from the dome of the diaphragm to the symphysis pubis without oral contrast. IV 100mL Isovue-370 was administered. Sagittal and coronal images were reconstructed. Individualized dose optimization techniques were used for this CT. COMPARISON: 09/29/2023. FINDINGS: The visualized lung bases are unremarkable. The visualized portions of the heart are within normal limits. Normal liver. Normal gallbladder and extrahepatic biliary system. Normal spleen. Normal pancreas. Normal bilateral adrenal glands. Normal right kidney. Normal left kidney. Normal visualized stomach. Normal small intestine. Normal colon. The appendix is visualized and appears normal. There is diffuse atherosclerotic calcification of the abdominal aorta, without a demonstrated aneurysm. Normal inferior vena cava. Normal retroperitoneum. Normal urinary bladder. Scattered surgical clips in the right abdomen and pelvis. Normal abdominal wall. There are diffuse degenerative changes of the visualized lumbar spine. CT/Abdomen/Pelvis W IV Cont ONLY IMPRESSION: 1. No acute inflammatory process or bowel obstruction. 2. Chronic changes as above. Electronically Signed: William Rodriguez MD ([place]) at 13:26 EDT ,
--- NOTE | 2024-08-01 13:58 | CASEMGMT ---
MARLENY QUARLES in to discuss RIOS form with patient. MARLENY QUARLES explained RIOS form, patient voiced understanding. Pt signed form and filed in chart. Pt provided with a copy of signed RIOS form. Patient had no further questions or concerns at this time. Pt reports he is I at home and lives with his . Denies any homegoing needs.
[2024-08-01] MEDS: 0.9% Saline Lock 10 ML Syringe IV (14:09)
[2024-08-01 15:46] VITALS: BP 122/72; PULSE 60; RESP 17; TEMP 36.8; O2SAT 98
--- NOTE | 2024-08-01 16:48 | PCM.PN.HOSP ---
Reason for Visit Reason for Visit: Diagnoses Chest pain, unspecified (07/31/24) Subjective Subjective Saw patient at bedside this morning, present. Patient completed cardiac stress test this morning and this was unremarkable. Patient denies having any chest pain during the stress test. He denies any chest pain or discomfort at rest. Patient was somewhat surprised by negative stress test given his symptoms on admission. He and both note that he has had some worsening shortness of breath with exertion over the past several weeks. The left-sided chest discomfort yesterday was new for him and he reports intermittent mild discomfort this morning but improved from yesterday. Patient did see his PCP Dr. Henning on Saturday and was found to have new onset anemia with hemoglobin down to 11 from baseline 14-15, and iron studies showed significant iron deficiency anemia. Hemoglobin was again 11 here and repeat iron studies showed iron deficiency with ferritin of 13. CT abdomen pelvis with IV contrast was obtained today and showed no acute findings. Patient denies any significant change to bowel movements or any significant acid reflux that he is aware of. He is willing to remain hospitalized overnight with likely plan for EGD tomorrow for further evaluation. No other acute concerns currently. Objective Data Objective Data Vital Signs: Vital Signs Temp Pulse Resp BP Pulse Ox O2 Del Method O2 Flow Rate 98.2 F 60 17 122/72 H 98 Room Air 2 08/01/24 15:46 08/01/24 15:46 08/01/24 15:46 08/01/24 15:46 08/01/24 15:46 08/01/24 15:46 07/31/24 11:00 Oxygen Flow Rate (L/min) 2 Oxygen Delivery Method Room Air Weight: 89.8 kg Body Mass Index (BMI) 28.4 Lab / Micro Data 08/01/24 08:45 08/01/24 08:45 Labs: Laboratory Results - last 24 hr 07/31/24 16:30: Troponin I High Sens 5 08/01/24 08:45: WBC 5.5, RBC 4.09 L, Hgb 11.2 L, Hct 35.9 L, MCV 87.8, MCH 27.4, MCHC 31.2 L, RDW Std Deviation 49.5 H, RDW Coeff of Ivonne 15.3 H, Plt Count 206, MPV 9.1, Sodium 140, Potassium 3.8, Chloride 109 H, Carbon Dioxide 24.0, Anion Gap 7, BUN 19 H, Creatinine 1.18, Estim Creat Clear Calc 61.93, Est GFR (MDRD) Af Amer 77, Est GFR (MDRD) Non-Af 64, BUN/Creatinine Ratio 16.1, Glucose 179 H, Calcium 8.9, Iron 34 L, TIBC 390, Iron Saturation 8.7 L, Ferritin 13 L, Folate 26.50 Radiography Diagnostic Testing: Radiology Impression Abdomen/Pelvis CT 08/01/24 12:23 IMPRESSION: 1. No acute inflammatory process or bowel obstruction. 2. Chronic changes as above. Electronically Signed: William Rodriguez MD ([place]) at 13:26 EDT , Physical Exam Const alert, oriented x3, no apparent distress and average body habitus Constitutional Narrative: Pleasant elderly male, good energy level, sitting up comfortably in bed, conversing normally, in no acute distress. General Appearance: cooperative and comfortable HEENT normocephalic, head/scalp atraumatic, hearing grossly normal bilaterally, nasal mucous membranes and turbinates normal and moist oral mucous membranes Eyes PERRL, EOMs intact bilaterally and conjunctivae normal Neck full ROM Chest inspection of chest normal Resp normal respiratory effort, normal air movement, no use of accessory muscles and clear to auscultation bilaterally Cardio regular rate, regular rhythm, no murmurs and peripheral pulses 2+ throughout GI normal to inspection, nondistended, normoactive bowel sounds, soft to palpation, non-tender and non-distended Back/Spine normal ROM Extremity normal to inspection, full ROM and no pedal edema Skin no rashes or lesions noted Neuro no focal motor deficits and no sensory deficits noted Speech: speech normal Psych mental status grossly normal Assessment & Plan Assessment/Plan (1) Chest pain: (2) Iron deficiency anemia: PLAN: Plan Patient is a 73-year-old male who presented [facility] ED on 07/31/2024 with chest pain. 1. Chest pain and mild shortness of breath on exertion ? Most likely due to newly diagnosed anemia as noted below. EKG nonacute, troponins negative x 2, chest x-ray unremarkable and hemodynamically stable on admission. Cardiac stress test on 08/01 was unremarkable. Has history of nonobstructive CAD noted on heart cath back in 2022; echo at that time showed EF 60% with stage I diastolic function, no other abnormalities. Patient reports new mild shortness of breath on exertion over the past several weeks and has noticed this as well. No further cardiac workup needed at this time. Further management as below. 2. Newly diagnosed iron deficiency anemia ? GI consulted. Hemoglobin 11.8 on admit, down from baseline hemoglobin 14-15. Iron studies showed severe iron deficiency anemia with ferritin 13. CT abdomen pelvis with IV contrast on 08/01 was unremarkable. Patient has history of mild acid reflux but reports good symptom control recently and denies any change in bowel movements. However, slow GI blood loss would seem to be the most likely source of new onset anemia. Last colonoscopy was 4 to 5 years ago and patient had a few small polyps, has otherwise never had significant findings on colonoscopy. N.p.o. at midnight for likely EGD tomorrow. Monitor CBC daily. Chronic medical conditions: ? History of nonobstructive CAD, history of nonsustained SVT, hypertension, hyperlipidemia: Follows with outpatient cardiology, last office visit in June; no changes made at that time. Continue home aspirin, statin, hydrochlorothiazide, Toprol and ranolazine. ? History of TIA: Continue home aspirin and statin. ? DAVE: Continue home CPAP. ? Depression: Stable. Continue home sertraline. ? Remote history of pheochromocytoma s/p surgical resection DVT prophylaxis: SCDs CODE STATUS: Full code, verified Expected disposition: Home, 1 to 2 days Total clinical time spent by myself addressing the patient's medical issues, reviewing all the data, and collaborating with patient's care team: 35 minutes. Charges/Coding Visit Charges Inpatient E&M: 00090 Subs Hosp L2
[2024-08-01] MEDS: Sertraline 50 MG Tablet PO (20:57)
[2024-08-01] MEDS: Atorvastatin Calcium 40 MG Tablet PO (20:57)
[2024-08-01 21:45] VITALS: BP 115/74; PULSE 59; RESP 16; TEMP 36.6; O2SAT 99
[2024-08-02 06:03] LABS: Hematocrit 36.5 % (40-54); Hemoglobin 11.7 g/dL (13.0-16.5); Mean Corp Hgb Conc 32.1 g/dL (32-36); Mean Corpuscular Hgb 27.6 pg (27.0-32.0); Mean Corpuscular Volume 86.1 fL (80-94); Mean Platelet Vol. 9.2 fl (6.2-12.0); Platelet Count 213 K/mm3 (150-450); RBC Distribution Width CV 15.2 % (11.6-14.6); Red Blood Count 4.24 M/mm3 (4.6-6.2); White Blood Count 5.9 K/mm3 (4.4-11.0)
[2024-08-02 08:57] VITALS: BP 117/77; PULSE 69; RESP 17; TEMP 36.6; O2SAT 96
[2024-08-02] MEDS: Pantoprazole Sodium 40 MG Tablet PO ×2 (08:58→20:57)
[2024-08-02] MEDS: Ranolazine 500 MG Tablet 1000 MG PO ×2 (08:58→20:57)
[2024-08-02] MEDS: hydroCHLOROthiazide 12.5mg 12.5 MG PO (08:58)
[2024-08-02] MEDS: Aspirin E.C. 81 MG Tablet PO (08:58)
[2024-08-02] MEDS: Potassium Chloride Oral Tablet 20 MEQ PO (08:58)
[2024-08-02] MEDS: 0.9% Saline Lock 10 ML Syringe IV (08:59)
[2024-08-02] MEDS: Sodium Ferric Gluconat 250 MG in 0.9% Normal Saline 250 ML 135 MG IV (08:59)
--- NOTE | 2024-08-02 11:53 | PCM.PN.HOSP ---
Reason for Visit Reason for Visit: Diagnoses Iron deficiency anemia, unspecified (07/31/24) Chest pain, unspecified (07/31/24) Subjective Subjective Saw patient at bedside this morning. Patient was sitting up comfortably in bedside chair, conversing normally, in no acute distress. Had good energy level this morning. Told patient that unfortunately with it being Saturday, his EGD will not be done until tomorrow morning. Gave him a dose of IV iron this morning and this was running when I saw him, and told him I will give him another dose of IV iron tomorrow. Patient was understanding and agreeable with this plan. He denied any chest pain or discomfort this morning. No other new concerns today. Objective Data Objective Data Vital Signs: Vital Signs Temp Pulse Resp BP Pulse Ox O2 Del Method O2 Flow Rate 97.8 F 69 17 117/77 96 Room Air 2 08/02/24 08:57 08/02/24 08:57 08/02/24 08:57 08/02/24 08:57 08/02/24 08:57 08/02/24 09:09 07/31/24 11:00 Oxygen Flow Rate (L/min) 2 Oxygen Delivery Method Room Air Weight: 89.8 kg Body Mass Index (BMI) 28.4 Intake & Output: Intake and Output for Last 24 Hours 07/31/24 08/01/24 08/02/24 23:59 23:59 23:59 Intake Total 270 / 270 Balance 270 / 270 Lab / Micro Data 08/02/24 05:40 08/01/24 08:45 Labs: Laboratory Results - last 24 hr 08/02/24 05:40: WBC 5.9, RBC 4.24 L, Hgb 11.7 L, Hct 36.5 L, MCV 86.1, MCH 27.6, MCHC 32.1, RDW Std Deviation 48.0 H, RDW Coeff of Ivonne 15.2 H, Plt Count 213, MPV 9.2 Radiography Diagnostic Testing: Radiology Impression Abdomen/Pelvis CT 08/01/24 12:23 IMPRESSION: 1. No acute inflammatory process or bowel obstruction. 2. Chronic changes as above. Electronically Signed: William Rodriguez MD (Bro[facility]) at 13:26 EDT , Physical Exam Const alert, oriented x3, no apparent distress and average body habitus Constitutional Narrative: Pleasant elderly male, good energy level, sitting up comfortably in bed, conversing normally, in no acute distress. Stable. General Appearance: cooperative and comfortable HEENT normocephalic, head/scalp atraumatic, hearing grossly normal bilaterally, nasal mucous membranes and turbinates normal and moist oral mucous membranes Eyes PERRL, EOMs intact bilaterally and conjunctivae normal Neck full ROM Chest inspection of chest normal Resp normal respiratory effort, normal air movement, no use of accessory muscles and clear to auscultation bilaterally Cardio regular rate, regular rhythm, no murmurs and peripheral pulses 2+ throughout GI normal to inspection, nondistended, normoactive bowel sounds, soft to palpation, non-tender and non-distended Back/Spine normal ROM Extremity normal to inspection, full ROM and no pedal edema Skin no rashes or lesions noted Neuro no focal motor deficits and no sensory deficits noted Speech: speech normal Psych mental status grossly normal Assessment & Plan Assessment/Plan (1) Chest pain: (2) Iron deficiency anemia: PLAN: Plan Patient is a 73-year-old male who presented [facility] ED on 07/31/2024 with chest pain. 1. Chest pain and mild shortness of breath on exertion ? Most likely due to newly diagnosed anemia as noted below. EKG nonacute, troponins negative x 2, chest x-ray unremarkable and hemodynamically stable on admission. Cardiac stress test on 08/01 was unremarkable. Has history of nonobstructive CAD noted on heart cath back in 2022; echo at that time showed EF 60% with stage I diastolic function, no other abnormalities. Patient reports new mild shortness of breath on exertion over the past several weeks and has noticed this as well. No further cardiac workup needed at this time. Further management as below. 2. Newly diagnosed iron deficiency anemia ? GI consulted. Hemoglobin 11.8 on admit, down from baseline hemoglobin 14-15. Iron studies showed severe iron deficiency anemia with ferritin 13. CT abdomen pelvis with IV contrast on 08/01 was unremarkable. Patient has history of mild acid reflux but reports good symptom control recently and denies any change in bowel movements. However, slow GI blood loss would seem to be the most likely source of new onset anemia. Last colonoscopy was 4 to 5 years ago and patient had a few small polyps, has otherwise never had significant findings on colonoscopy. N.p.o. at midnight tonight with plan for EGD tomorrow. Will give doses of IV iron on 08/02 and 08/03. Hemoglobin remaining stable, no need to monitor further CBCs for now. Chronic medical conditions: ? History of nonobstructive CAD, history of nonsustained SVT, hypertension, hyperlipidemia: Follows with outpatient cardiology, last office visit in June; no changes made at that time. Continue home aspirin, statin, hydrochlorothiazide, Toprol and ranolazine. ? History of TIA: Continue home aspirin and statin. ? DAVE: Continue home CPAP. ? Depression: Stable. Continue home sertraline. ? Remote history of pheochromocytoma s/p surgical resection DVT prophylaxis: SCDs CODE STATUS: Full code, verified Expected disposition: Home, 1 to 2 days Total clinical time spent by myself addressing the patient's medical issues, reviewing all the data, and collaborating with patient's care team: 35 minutes. Charges/Coding Visit Charges Inpatient E&M: 71633 Subs Hosp L2
[2024-08-02 16:00] VITALS: BP 140/87; PULSE 73; RESP 17; TEMP 36.7; O2SAT 96
[2024-08-02 18:19] VITALS: BMI 28.4
[2024-08-02] MEDS: Sertraline 50 MG Tablet PO (20:57)
[2024-08-02 20:58] VITALS: PULSE 76
[2024-08-02] MEDS: Metoprolol(XL)Succ 25 MG Tablet PO (20:58)
[2024-08-02] MEDS: Atorvastatin Calcium 40 MG Tablet PO (20:59)
[2024-08-02 22:00] VITALS: BP 116/74; PULSE 76; RESP 16; TEMP 36; O2SAT 97
[2024-08-03] VITALS (11 sets, daily range): BP systolic 100–143; BP diastolic 63–83; PULSE 48–63; RESP 16–18; TEMP 36.2–36.7; O2SAT 93–98; BMI 35.2
--- NOTE | 2024-08-03 | ESO_PTH ---
PATIENT: KACI BEAN LOC: [facility] U#:[id number] AGE/SX: 74/M ROOM: [facility] RE08/02/[address]: Dr. Lucio Beltrán DO : 1950 BED: 1 DIS: 08/04/2024 SPEC #: [id number] RECD: 08/03/24 14:50 STATUS: JANNETTE REQ #: [id number] CORIN: 08/03/24 00:[address]: Kenroy Young DEPT: SURGICAL PATHOLOGY RECD BY: Anibal Killian ENTERED: 08/04/24 09:45 SP TYPE: ESOPH BX OTHR DR: DO Dr. Lincoln Wilkinson MD Dr. Nicholas F Kotsonis, MD Tissues: Esophagus, NOS Procedures: Special Stain Group I Surgery Specimen Level IV GMS Stain (control) Comments: @ Ordering doctor for SUIV edited from to @ by KEVIN at 08/04/24 1141 @ Submitting doctor edited from to @ by KEVIN at 08/04/24 1141 HEADER OPERATION: EGD with biopsy PRE-OP DIAGNOSIS: Anemia TISSUE SUBMITTED: Random esophagus biopsy MICROSCOPIC DIAGNOSIS Esophagus, random biopsy: Consistent with eosinophilic esophagitis. Negative for fungal organisms. See comment. 08/05/2024 COMMENT Eosinophils number >20 per high power field. GMS stain with matched control was used in the evaluation of this case. Clinical correlation is suggested. MICROSCOPIC DESCRIPTION Slides are reviewed. GROSS DESCRIPTION Received in fixative is one container labeled with the patient's name and designated Random esophagus biopsy. The specimen consists of multiple irregular fragments of light malik soft tissue that in aggregate measure 1.0 x 0.3 x 0.1 cm. The specimen is totally submitted in one cassette. 08/04/2024 TC:2 CPT:24863,06428
[2024-08-03] MEDS: Nitroglycerin (INPATIENT USE) 0.4 MG TAB.SUBL SL (08:23)
[2024-08-03 08:31] LABS: Vitamin B12 754 pg/mL (211-911)
[2024-08-03] MEDS: Sodium Ferric Gluconat 250 MG in 0.9% Normal Saline 250 ML 135 MG IV (09:37)
[2024-08-03] MEDS: 0.9% Normal Saline (1000mL) 1,000 ML 15 ML IV (10:47)
--- NOTE | 2024-08-03 11:17 | PRE.ANES_ITS ---
ASA Classification* ASA Classification ASA Classification: 3 Assessment & Plan Anesthesia* Anesthesia Assessment Anesthesia Assessment: Discussed sedation and/or anesthesia options, risks, benefits, and alternatives with patient/parents/legal guardian/POA. Questions invited. The patient/parents/legal guardian/POA seems to understand and agrees to proceed with anesthesia plan. Reviewed the physical assessment, medical history, allergy history and patient home medications list prior to surgery/procedure/anesthetic and documented any changes. Performed airway and anesthesia risk assessments. Anesthesia Type Anesthesia Type: MAC Anesthesia Focused Assessment* Temperature: 98.1 F Pulse Rate: 62 Blood Pressure: 128/63 Respiratory Rate: 18 Pulse Ox: 96 Airway Assessment Mouth opens: >3 cm Mallampati Score: II Focused Labs Anesthesia Preop lab: CBC WBC 5.9 K/mm3 (4.4-11.0) 08/02/24 05:40 RBC 4.24 M/mm3 (4.6-6.2) L 08/02/24 05:40 Hgb 11.7 g/dL (13.0-16.5) L 08/02/24 05:40 Hct 36.5 % (40-54) L 08/02/24 05:40 Plt Count 213 K/mm3 (150-450) 08/02/24 05:40 CHEMISTRY Potassium 3.8 mmol/L (3.5-5.1) 08/01/24 08:45 Sodium 140 mmol/L (136-145) 08/01/24 08:45 BUN 19 mg/dL (7-18) H 08/01/24 08:45 Creatinine 1.18 mg/dL (0.70-1.30) 08/01/24 08:45 Glucose 179 mg/dL (74-106) H 08/01/24 08:45 POC Glucose 133 mg/dL (74-106) H 02/08/23 16:39 COAG PT 12.7 SECONDS (11.7-14.9) 08/01/18 03:30 Pre-Assessment Diagnosis/Proposed Procedure Planned Operative Procedure(s): EGD Anesthesia History 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 When Was Last Pacemaker Check QUESTION #4 FULL TEXT: You/Your Family Experience fever (hyperthermia) with Anesthesia Last Oral Intake Last Oral intake: Last Oral Intake NPO since Meds taken in AM with sips of water? Meds patient instructed to take am of surgery PONV PONV - plant inspector: PONV - plant inspector Female HX of Motion Sickness HX of N/V After Surgery Non-Smoker Duration of Surgery greater than 60 minutes Number of Risk Factors PONV Score Height & Weight Height & Weight: Anesthesia: Height & Weight Height 5 ft 10 in 08/02/24 18:19 Weight: 111.2 kg 08/03/24 06:37 Body Mass Index (BMI) 35.2 08/03/24 06:37 Respiratory Assessment Respiratory Assessment - plant inspector: Respiratory Tract Infection Hx - plant inspector Hx Respiratory Tract Infection No 12/24/19 09:03 STOP Sleep Apnea STOP Sleep Apnea - plant inspector: STOP Sleep Apnea - plant inspector Hx Hypertension No 07/31/24 16:11 Hx Sleep Apnea Yes 07/31/24 16:11 CPAP Yes 07/31/24 16:11 BIPAP No 07/31/24 16:11 Do you snore loudly (louder than talking or can be heard Do you often feel tired/ fatigued/ sleepy during daytime? Has anyone observed you stop breathing during sleep? STOP Results Positive 07/31/24 16:11 QUESTION #5 FULL TEXT : Do you snore loudly (louder than talking or can be heard through closed doors)? Tobacco Use History Tobacco Use History - plant inspector: Tobacco Use History - plant inspector Tobacco Use Non-smoker 02/09/23 10:58 Smoking Status Never smoker 07/31/24 16:11 Hx Tobacco Use No 07/31/24 16:11 Years Smoking Packs Smoked per Day Smoking Cessation Date was within the last 15 years Hx Smoking Cessation Date Hx Smoking Cessation Counseling Hematologic Medial History Hematologic Hx - plant inspector: Hematologic Medical Hx - assorter Hx of Blood Transfusion No 07/31/24 16:11 Hx of Transfusion in last 3 No 07/31/24 16:11 Months Date of Last Transfusion (if within last 3 months) Ever experience any problems No 07/31/24 16:11 with transfusion(s)? Specify any problems Hx of Preganancy in last 3 N/A 07/31/24 16:11 Months Nurse Filling Out Transfusion FARIHA 07/31/24 16:11 & Questions: Date: 07/31/24 07/31/24 16:11 Time: 16:23 07/31/24 16:11 Patient unable to answer at this time (ie. confused, unrespo /Reproduction History /Reproductive History - plant inspector: /Reproductive Hx- plant inspector Hx Now Gestational Age (in weeks): EDC: Hx Hx Para Hx Section SAB Active Medications Active Medications: Current Medications Generic Name Dose Route Start Last Admin Trade Name Freq PRN Reason Stop Dose Admin Aspirin 81 mg 08/01/24 08:00 08/02/24 08:58 Aspirin E.C. 81 Mg Tablet PO 81 mg DAILYCM JADE Administration Atorvastatin Calcium 40 mg 07/31/24 22:00 08/02/24 20:59 Atorvastatin Calcium 40 Mg Tablet PO 40 mg QHS JADE Administration Hydrochlorothiazide 12.5 mg 08/01/24 10:00 08/02/24 08:58 Hydrochlorothiazide 12.5mg PO 12.5 mg DAILY JADE Administration Protocol Sodium Chloride 250 mls @ 15 mls/hr 07/31/24 16:15 IV .[id number] PRN Additional IVPB Infusion Sodium Chloride 250 mls @ 15 mls/hr 07/31/24 16:15 IV .[id number] PRN Saline Flush Sodium Chloride 1,000 mls @ 15 mls/hr 08/03/24 10:35 08/03/24 10:47 IV 15 mls/hr .Q48H JADE Administration Metoprolol Succinate 25 mg 07/31/24 22:00 08/02/24 20:58 Metoprolol(Xl)Succ 25 Mg Tablet PO 25 mg QHS JADE Administration Protocol Nitroglycerin 0.4 mg 07/31/24 16:28 08/03/24 08:23 Nitroglycerin (Inpatient Use) 0.4 Mg Tab.Subl SL 0.4 mg Q5M PRN Administration CARDIAC/CHEST PAIN Pantoprazole Sodium 40 mg 07/31/24 22:00 08/02/24 20:57 Pantoprazole Sodium 40 Mg Tablet PO 40 mg BID JADE Administration Potassium Chloride 20 meq 08/01/24 08:00 08/02/24 08:58 Potassium Chloride Oral Tablet 20 Meq PO 20 meq DAILYCM JADE Administration Ranolazine 1,000 mg 07/31/24 22:00 08/02/24 20:57 Ranolazine 500 Mg Tablet PO 1,000 mg BID JADE Administration Sertraline HCl 50 mg 08/01/24 22:00 08/02/24 20:57 Sertraline 50 Mg Tablet PO 50 mg QHS JADE Administration Sodium Chloride 10 - 40 ml 07/31/24 16:15 08/02/24 08:59 0.9% Saline Lock 10 Ml Syringe IV 10 ml UD PRN Administration SALINE FLUSH [facility] Medical History Cataract, bilateral NSVT (nonsustained ventricular tachycardia) Non-smoker DVT (deep venous thrombosis) Non-ischemic cardiomyopathy History of deep vein thrombosis of lower extremity 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 GERD (gastroesophageal reflux disease) Chest pain HLD (hyperlipidemia) Family history of heart disease Home Medications ?Medication ?Instructions ?Recorded ?Last Taken ?Type multivitamin,hf-[id number]-[id number] 27 1 tab PO DAILY supplement 10/28/15 02/08/23 History mg-0.4 mg tablet aspirin 81 mg tablet,delayed 81 mg PO DAILY heart health #30 02/09/23 Unknown Rx release tabs atorvastatin 40 mg tablet 40 mg PO DAILY cholesterol #30 tabs 02/09/23 Unknown Rx ascorbic acid (vitamin C) 500 mg 1,000 mg PO DAILY supplement 08/02/23 Unknown History capsule pantoprazole 40 mg tablet,delayed 40 mg PO BID GERD 08/02/23 Unknown History release nitroglycerin 0.4 mg sublingual 0.4 mg sublingual Q5M PRN chest 09/29/23 Unknown Rx tablet pain #20 tabs potassium chloride 20 mEq 20 meq PO DAILY supplement #90 tabs 03/20/24 Unknown Rx tablet,extended release metoprolol succinate 25 mg 25 mg PO QHS heart health #90 06/16/24 Unknown Rx tablet,extended release 24 hr TABLETS ranolazine 1,000 mg 1,000 mg PO BID #180 tabs 06/16/24 Unknown Rx tablet,extended release,12 hr hydrochlorothiazide 12.5 mg tablet 12.5 mg PO DAILY diuretic 07/31/24 Unknown History sertraline 50 mg tablet 50 mg PO QHS 07/31/24 07/30/24 History Allergy/AdvReac Type Severity Reaction Status Date / Time No Known Allergies Allergy Verified 07/31/24 07:56 Family History Father CAD (coronary artery disease) CVA (cerebral vascular accident) Myocardial infarction, Onset Age: 50 Other Family history of heart disease Surgical History History of foot surgery (12/2019) History of left heart catheterization (12/07/11) pheochromocytoma excision History of tonsillectomy History of total adrenalectomy Social History Smoking Status: Never smoker alcohol intake: current substance use type: does not use Review of Systems (Anesthesia) ROS Narrative System reviewed and no additional complaints, except as documented.
--- NOTE | 2024-08-03 13:31 | EX.PCM.CON.G ---
HPI Consult Data Date of Consult: 08/03/24 HPI Narrative Reason for Consultation: Iron deficiency anemia HPI Narrative: KACI BEAN, is a 74 M who presented to the hospital with chest pain. This morning he woke up feeling a little short of breath that his CPAP was not working right so he took it off at around 6 AM and then noticed some left-sided chest pain. This was fairly typical chest pain in nature however for the first time it was associated with left arm pain going up into his jaw which is why he presented to the hospital. Initial workup was unremarkable, delta troponin was negative. EKG is nonischemic. He did have a D-dimer because of the continued chest pain but this was negative for age. He says that he still has some intermittent chest pain after the Nitropaste but he does not currently have any left arm pain. Chest x-ray showed no acute disease. CT scan abdomen pelvis showed no acute disease. He had a stress test: 1. There is no evidence of significant ischemia or infarction. 2. Estimated ejection fraction is 59% I was consulted because he did have a decrease in hemoglobin from 14.8 down to 11.4 and had positive orthostatics. He has a past medical history of mild depression, hypertension, hyperlipidemia and gastroesophageal reflux disease for which she takes PPI. 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 GERD (gastroesophageal reflux disease) Chest pain HLD (hyperlipidemia) Family history of heart disease Home Medications ?Medication ?Instructions ?Recorded ?Last Taken ?Type multivitamin,wi-zulh-jwuwwaid 27 1 tab PO DAILY supplement 10/28/15 02/08/23 History mg-0.4 mg tablet aspirin 81 mg tablet,delayed 81 mg PO DAILY heart health #30 02/09/23 Unknown Rx release tabs atorvastatin 40 mg tablet 40 mg PO DAILY cholesterol #30 tabs 02/09/23 Unknown Rx ascorbic acid (vitamin C) 500 mg 1,000 mg PO DAILY supplement 08/02/23 Unknown History capsule pantoprazole 40 mg tablet,delayed 40 mg PO BID GERD 08/02/23 Unknown History release nitroglycerin 0.4 mg sublingual 0.4 mg sublingual Q5M PRN chest 09/29/23 Unknown Rx tablet pain #20 tabs potassium chloride 20 mEq 20 meq PO DAILY supplement #90 tabs 03/20/24 Unknown Rx tablet,extended release metoprolol succinate 25 mg 25 mg PO QHS heart health #90 06/16/24 Unknown Rx tablet,extended release 24 hr TABLETS ranolazine 1,000 mg 1,000 mg PO BID #180 tabs 06/16/24 Unknown Rx tablet,extended release,12 hr hydrochlorothiazide 12.5 mg tablet 12.5 mg PO DAILY diuretic 07/31/24 Unknown History sertraline 50 mg tablet 50 mg PO QHS 07/31/24 07/30/24 History Allergy/AdvReac Type Severity Reaction Status Date / Time No Known Allergies Allergy Verified 07/31/24 07:56 Family History Father CAD (coronary artery disease) CVA (cerebral vascular accident) Myocardial infarction, Onset Age: 50 Other Family history of heart disease Surgical History History of foot surgery (12/2019) History of left heart catheterization (12/07/11) pheochromocytoma excision History of tonsillectomy History of total adrenalectomy Social History Smoking Status: Never smoker alcohol intake: current substance use type: does not use ROS Constitutional Constitutional: Denies chills, fatigue, fever(s) or malaise Eyes Eyes: Denies blurry vision ENT HEENT: Denies headache(s) or nasal discharge Cardiovascular Cardiovascular: Reports chest pain; Denies dyspnea on exertion or syncope Respiratory/Chest Respiratory/Chest: Denies cough, shortness of breath at rest or shortness of breath with exertion Gastrointestinal Gastrointestinal: Denies constipation, diarrhea, nausea or vomiting Genitourinary Genitourinary: Denies dysuria Neurologic Neurologic: Denies focal weakness, numbness or tremor(s) Psychiatric Psychiatric: Denies anxiety or depression Physical Exam Const alert, oriented x3, no apparent distress and average body habitus General Appearance: cooperative and comfortable HEENT normocephalic, head/scalp atraumatic, hearing grossly normal bilaterally, nasal mucous membranes and turbinates normal and moist oral mucous membranes Eyes PERRL, EOMs intact bilaterally and conjunctivae normal Neck full ROM Chest inspection of chest normal Resp normal respiratory effort, normal air movement, no use of accessory muscles and clear to auscultation bilaterally Cardio regular rate, regular rhythm, no murmurs and peripheral pulses 2+ throughout GI normal to inspection, nondistended, normoactive bowel sounds, soft to palpation, non-tender and non-distended Back/Spine normal ROM Extremity normal to inspection, full ROM and no pedal edema Skin no rashes or lesions noted Neuro no focal motor deficits and no sensory deficits noted Speech: speech normal Psych mental status grossly normal Lab / Micro Data 08/02/24 05:40 08/01/24 08:45 Labs: Laboratory Results - last 24 hr 08/01/24 08:45: Vitamin B12 754 Assessment & Plan Assessment/Plan (1) Chest pain: (2) Iron deficiency anemia: PLAN: Plan Patient is a 74-year-old male who presented [facility] ED on 07/31/2024 with chest pain. His cardiac workup has been negative thus far and the only thing revealing is his newly diagnosed iron deficiency anemia His hemoglobin 11.8 on admit, down from baseline hemoglobin 14-15. Iron studies showed severe iron deficiency anemia with ferritin 13. CT abdomen pelvis with IV contrast on 08/01 was unremarkable. Patient has history of mild acid reflux but reports good symptom control recently and denies any change in bowel movements. He is not not had an upper endoscopy but his last colonoscopy was 4 to 5 years ago and patient had a few small polyps, has otherwise never had significant findings on colonoscopy. He will undergo EGD and possibly colonoscopy. He was explained alternatives, risk, benefits include not withstanding bleeding, infection, sepsis, perforation, need for emergent surgery . Have an ASA of 3. Charges/Coding Visit Charges Inpatient E&M: 51665 Init Hosp L3
--- NOTE | 2024-08-03 13:37 | PCM.POST.ANE ---
Anesthesia: Postop Eval I Current Vital Signs Temperature: 97.3 F Pulse Rate: 57 Blood Pressure: 103/64 Respiratory Rate: 16 Pulse Ox: 96 Oxygen Delivery Method: Room Air Assessment Airway patent: Yes Spontaneous unlabored respirations: Yes Mental status: Asleep nausea: No Vomiting: No Anesthesia Complication: No Fluid Hydration Crystalloid volume administer (ml): 400 Total IV fluid infused: 400 Progress Note Anesthesia document: Postop Eval 1 completed: Yes
--- NOTE | 2024-08-03 13:39 | OP.CCLET_ITS ---
08/03/2024 Lincoln Henning Re : Upper GI endoscopy procedure for Wiliam Fernandez Dear Juvencio This procedure was performed on Saturday, August 03, 2024. My impressions and recommendations are as follows: Impressions : - Esophageal mucosal changes suspicious for eosinophilic esophagitis. - Medium-sized hiatal hernia. - Gastric mucosal variant. - No gross lesions in the first portion of the duodenum. - Biopsies were taken with a cold forceps for evaluation of eosinophilic esophagitis. Recommendations : - [facility]. - Clear liquid diet. - Continue present medications. - Await pathology results. - Consider colonoscopy My findings are described in the full procedure note, which is enclosed. If I can be of further assistance, please feel free to contact me at . Sincerely, Kenroy Young, 08/03/2024 1:38:26 PM This report has been signed electronically.
--- NOTE | 2024-08-03 13:39 | OP.EGD_ITS ---
Patient Name: Wiliam Fernandez Procedure Date: 08/03/2024 12:55 PM Date of : 1950 Age: 74 Procedure: Upper GI endoscopy Indications: Iron deficiency anemia Providers: Kenroy Young DO Medicines: Monitored Anesthesia Care Patient Profile: This is a 74 year old male. Refer to note in patient chart for documentation of history and physical. Patient has symptoms of acute chest pain. Complications: No immediate complications. Procedure: Pre-Anesthesia Assessment: - Prior to the procedure, a History and Physical was performed, and patient medications and allergies were reviewed. The patient is competent. The risks and benefits of the procedure and the sedation options and risks were discussed with the patient. All questions were answered and informed consent was obtained. Patient identification and proposed procedure were verified by the physician in the pre-procedure area. Mental Status Examination: alert and oriented. Airway Examination: normal oropharyngeal airway and neck mobility. Respiratory Examination: clear to auscultation. CV Examination: normal. Prophylactic Antibiotics: The patient does not require prophylactic antibiotics. Prior Anticoagulants: The patient has taken no anticoagulant or antiplatelet agents except for NSAID medication. ASA Grade Assessment: II - A patient with mild systemic disease. After reviewing the risks and benefits, the patient was deemed in satisfactory condition to undergo the procedure. The anesthesia plan was to use monitored anesthesia care (MAC). Immediately prior to administration of medications, the patient was re-assessed for adequacy to receive sedatives. The heart rate, respiratory rate, oxygen saturations, blood pressure, adequacy of pulmonary ventilation, and response to care were monitored throughout the procedure. The physical status of the patient was re-assessed after the procedure. After obtaining informed consent, the endoscope was passed under direct vision. Throughout the procedure, the patient's blood pressure, pulse, and oxygen saturations were monitored continuously. The gastroscope was introduced through the mouth, and advanced to the second part of duodenum. The upper GI endoscopy was accomplished without difficulty. The patient tolerated the procedure well. Scope In: 1:24:32 PM Scope Out: 1:28:13 PM Total Procedure Duration Time 0 hours 3 minutes 41 seconds Findings: Mucosal changes including ringed esophagus, feline appearance and small-caliber esophagus were found in the middle third of the esophagus and in the lower third of the esophagus. Biopsies were obtained from the proximal and distal esophagus with cold forceps for histology of suspected eosinophilic esophagitis. Verification of patient identification for the specimen was done. Estimated blood loss was minimal. A medium-sized hiatal hernia was present. Diffuse mild mucosal variance characterized by longitudinal markings was found in the entire examined stomach. No gross lesions were noted in the first portion of the duodenum. Impression: - Esophageal mucosal changes suspicious for eosinophilic esophagitis. - Medium-sized hiatal hernia. - Gastric mucosal variant. - No gross lesions in the first portion of the duodenum. - Biopsies were taken with a cold forceps for evaluation of eosinophilic esophagitis. Recommendation: - [facility]. - Clear liquid diet. - Continue present medications. - Await pathology results. - Consider colonoscopy Procedure Code(s): --- Professional --- 79815, Esophagogastroduodenoscopy, flexible, transoral; with biopsy, single or multiple CPT copyright 2021 [employer]. All rights reserved. The codes documented in this report are preliminary and upon wordpress developer review may be revised to meet current compliance requirements. Kenroy Young DO 08/03/2024 1:38:26 PM This report has been signed electronically. Number of Addenda: 0 Note Initiated On: 08/03/2024 12:55 PM
[2024-08-03] MEDS: Potassium Chloride Oral Tablet 20 MEQ PO (14:26)
[2024-08-03] MEDS: Ranolazine 500 MG Tablet 1000 MG PO ×2 (14:26→22:59)
[2024-08-03] MEDS: Pantoprazole Sodium 40 MG Tablet PO ×2 (14:26→22:59)
[2024-08-03] MEDS: hydroCHLOROthiazide 12.5mg 12.5 MG PO (14:27)
[2024-08-03] MEDS: Aspirin E.C. 81 MG Tablet PO (14:27)
--- NOTE | 2024-08-03 14:49 | PCM.PN.HOSP ---
Reason for Visit Reason for Visit: Diagnoses Iron deficiency anemia, unspecified (08/02/24) Chest pain, unspecified (08/02/24) Subjective Subjective Saw patient at bedside this morning. Patient appeared similar to yesterday, was sitting up comfortably in bed, in no acute distress. He was awaiting having his EGD done this morning. No other new concerns. Objective Data Objective Data Vital Signs: Vital Signs Temp Pulse Resp BP Pulse Ox O2 Del Method O2 Flow Rate 97.7 F L 48 L 18 121/68 H 94 Room Air 2 08/03/24 14:20 08/03/24 14:20 08/03/24 14:20 08/03/24 14:20 08/03/24 14:20 08/03/24 14:20 08/03/24 11:18 Oxygen Flow Rate (L/min) 2 Oxygen Delivery Method Room Air Weight: 111.2 kg Body Mass Index (BMI) 35.2 Intake & Output: Intake and Output for Last 24 Hours 08/01/24 08/02/24 08/03/24 23:59 23:59 23:59 Intake Total 270 / 510 510 / 510 Output Total 0 / 0 Balance 270 / 510 510 / 510 Lab / Micro Data 08/02/24 05:40 08/01/24 08:45 Labs: Laboratory Results - last 24 hr 08/01/24 08:45: Vitamin B12 754 Physical Exam Const alert, oriented x3, no apparent distress and average body habitus Constitutional Narrative: Pleasant elderly male, good energy level, sitting up comfortably in bed, conversing normally, in no acute distress. Stable. General Appearance: cooperative and comfortable HEENT normocephalic, head/scalp atraumatic, hearing grossly normal bilaterally, nasal mucous membranes and turbinates normal and moist oral mucous membranes Eyes PERRL, EOMs intact bilaterally and conjunctivae normal Neck full ROM Chest inspection of chest normal Resp normal respiratory effort, normal air movement, no use of accessory muscles and clear to auscultation bilaterally Cardio regular rate, regular rhythm, no murmurs and peripheral pulses 2+ throughout GI normal to inspection, nondistended, normoactive bowel sounds, soft to palpation, non-tender and non-distended Back/Spine normal ROM Extremity normal to inspection, full ROM and no pedal edema Skin no rashes or lesions noted Neuro no focal motor deficits and no sensory deficits noted Speech: speech normal Psych mental status grossly normal Assessment & Plan Assessment/Plan (1) Chest pain: (2) Iron deficiency anemia: PLAN: Plan Patient is a 73-year-old male who presented [facility] ED on 07/31/2024 with chest pain. 1. Chest pain and mild shortness of breath on exertion ? Most likely due to newly diagnosed anemia as noted below. EKG nonacute, troponins negative x 2, chest x-ray unremarkable and hemodynamically stable on admission. Cardiac stress test on 08/01 was unremarkable. Has history of nonobstructive CAD noted on heart cath back in 2022; echo at that time showed EF 60% with stage I diastolic function, no other abnormalities. Patient reports new mild shortness of breath on exertion over the past several weeks and has noticed this as well. No further cardiac workup needed at this time. Further management as below. 2. Newly diagnosed iron deficiency anemia ? GI following. Hemoglobin 11.8 on admit, down from baseline hemoglobin 14-15. Iron studies showed severe iron deficiency anemia with ferritin 13. CT abdomen pelvis with IV contrast on 08/01 was unremarkable. Last colonoscopy was 4 to 5 years ago and patient had a few small polyps, has otherwise never had significant findings on colonoscopy. EGD 08/03 showed esophageal mucosal changes suspicious for eosinophilic esophagitis but no ulcers or other source of bleeding noted. Colonoscopy planned for tomorrow. Continue treatment with p.o. PPI twice daily, no need for inhaled budesonide at this point. Given doses of IV iron on 08/02 and 08/03. Hemoglobin remaining stable, no need to monitor further CBCs for now. Chronic medical conditions: ? History of nonobstructive CAD, history of nonsustained SVT, hypertension, hyperlipidemia: Follows with outpatient cardiology, last office visit in June; no changes made at that time. Continue home aspirin, statin, hydrochlorothiazide, Toprol and ranolazine. ? History of TIA: Continue home aspirin and statin. ? DAVE: Continue home CPAP. ? Depression: Stable. Continue home sertraline. ? Remote history of pheochromocytoma s/p surgical resection DVT prophylaxis: SCDs CODE STATUS: Full code, verified Expected disposition: Home, 1 to 2 days Total clinical time spent by myself addressing the patient's medical issues, reviewing all the data, and collaborating with patient's care team: 35 minutes. Charges/Coding Visit Charges Inpatient E&M: 13170 Subs Hosp L2
--- NOTE | 2024-08-03 16:01 | CASEMGMT ---
MARLENY QUARLES Assessment Face to Face with patient for initial transition planning/care coordination assessment. RN ROBINA introduced self and role at [facility], pt voices understanding. Pt is A&Ox4 and is resting comfortably in bed and is calm. Care providers, pharmacy, and demographics verified. Admitting dx: CP PCP: Pascual Henning Specialists: Pt states that he plans to f/u with [facility] in 2 weeks Preferred Pharmacy: [facility] Insurance: [employer] [facility] Prescription Benefit: Yes LNOK: Maranda Fernandez (W), Renata Fernandez (Eve) Living Arrangements: Pt lives with his in a ranch style home with one step to enter ADLs/IADLs: Ind Transportation: Self, DME: BP Monitor, Cane, crutches, CPAP @ HS with no additional oxygen. Denies further needs HHC/SNF: Denies Hx or needs Pt?s goal: Home Plan: Home no needs. No 6-Click or therapy ordered/ entered. Pt states that he is completely independent and denies home going needs. Pt denies the need for HHC or OP Tx. Pt states that he feels safe with this plan and denies further questions or concerns. CM to follow for potential anticoagulant prescriptions. Report given to STORE KEEPER CM. Daniela Akers RN, CM
--- NOTE | 2024-08-03 16:25 | PCM.POSTANE2 ---
Anesthesia Postop Eval I Sum Postop Eval Completion status Anesthesia document: Postop Eval 1 completed: Yes Anesthesia Postop Eval I Summary Anesthesia Postop Eval I Summary: Anesthesia Postop Eval I: Assessment Summary Airway patent Yes 08/03/24 13:38 [email or web address] Spontaneous unlabored Yes 08/03/24 13:38 [email or web address] respirations Mental status Asleep 08/03/24 13:38 [email or web address] nausea No 08/03/24 13:38 [email or web address] Vomiting No 08/03/24 13:38 [email or web address] Anesthesia Postop Eval I: Fluid Summary Crystalloid volume administer 400 08/03/24 13:38 [email or web address] (ml) Colloids volume administered ( ml) Blood Product volume administered (ml) Total IV fluid infused 400 08/03/24 13:38 [email or web address] Anesthesia Postop Eval I: Summary Notes Anesthesia Complication No 08/03/24 13:38 [email or web address] Anesthesia Complication Comment: Post-operative progress note Anesthesia: Postop Eval II Evaluation Mental status: Awake and Calm Pain Level: 0 nausea: No Vomiting: No Complications Anesthesia Complication: No
[2024-08-03] MEDS: Bisacodyl 5 MG Tablet 20 MG PO (16:30)
[2024-08-03] MEDS: Polyethylene Glycol 3350 BOWEL PREP PO (18:31)
[2024-08-03] MEDS: Sertraline 50 MG Tablet PO (22:59)
[2024-08-03] MEDS: Atorvastatin Calcium 40 MG Tablet PO (22:59)
[2024-08-03] MEDS: Metoprolol(XL)Succ 25 MG Tablet PO (22:59)
[2024-08-04] VITALS (11 sets, daily range): BP systolic 92–130; BP diastolic 58–80; PULSE 56–63; RESP 14–17; TEMP 36.4–36.8; O2SAT 95–100; BMI 29.0
[2024-08-04 07:07] LABS: Absolute Lymphocyte Count 1.73 X10^3/uL (0.83-4.51); Absolute Neutrophil Count 4.3 X10^3/uL (2.0-7.7); Basophil# 0.03 X10^3/uL; Basophil% 0.4 % (0-1); Eosinophil# 0.18 X10^3/uL; Eosinophils% 2.5 % (0-5); Hematocrit 37.4 % (40-54); Hemoglobin 11.7 g/dL (13.0-16.5); Lymphocyte # 1.73 X10^3/ul (0.83-4.51); Lymphocyte % 24.3 % (19-41); Mean Corp Hgb Conc 31.3 g/dL (32-36); Mean Corpuscular Hgb 27.5 pg (27.0-32.0); Mean Corpuscular Volume 87.8 fL (80-94); Monocyte# 0.82 X10^3/uL; Monocyte% 11.5 % (0-10); NRBC Flagged by Analyzer 0 % (0-5); Neutrophil # 4.34 X10^3/uL (2.7-7.7); Platelet Count 203 K/mm3 (150-450); RBC Distribution Width CV 15.4 % (11.6-14.6); RBC Distribution Width SD 49.1 fl (35.1-43.9); Red Blood Count 4.26 M/mm3 (4.6-6.2); White Blood Count 7.1 K/mm3 (4.4-11.0)
[2024-08-04 07:56] LABS: Anion Gap 5 (5-15); BUN 11 mg/dL (7-18); Chloride 109 mmol/L (98-107); EST Glomerular Filtration Rate 77 mL/min (>60); Est Glom Filt Rate - Afr Amer 94 mL/min (>60); Estimated Creatinine Clearance 72.73 ml/min; Glucose 124 mg/dL (74-106); Potassium 3.7 mmol/L (3.5-5.1); Sodium Level 139 mmol/L (136-145)
[2024-08-04] MEDS: 0.9% Saline Lock 10 ML Syringe IV (10:12)
[2024-08-04] MEDS: Ranolazine 500 MG Tablet 1000 MG PO (10:12)
[2024-08-04] MEDS: Pantoprazole Sodium 40 MG Tablet PO (10:12)
--- NOTE | 2024-08-04 14:38 | PCM.PN.HOSP ---
Reason for Visit Reason for Visit: Diagnoses Iron deficiency anemia, unspecified (08/02/24) Chest pain, unspecified (08/02/24) Objective Data Objective Data Vital Signs: Vital Signs Temp Pulse Resp BP Pulse Ox O2 Del Method O2 Flow Rate 97.5 F L 63 16 130/80 H 99 Room Air 2 08/04/24 10:10 08/04/24 10:10 08/04/24 10:10 08/04/24 10:10 08/04/24 10:10 08/04/24 10:10 08/03/24 11:18 Oxygen Flow Rate (L/min) 2 Oxygen Delivery Method Room Air Weight: 91.9 kg Body Mass Index (BMI) 29.0 Intake & Output: Intake and Output for Last 24 Hours 08/02/24 08/03/24 08/04/24 23:59 23:59 23:59 Intake Total 270 / 510 750 / 750 315.75 / 315.75 Output Total 0 / 0 Balance 270 / 510 750 / 750 315.75 / 315.75 Lab / Micro Data 08/04/24 06:21 08/04/24 06:21 Labs: Laboratory Results - last 24 hr 08/04/24 06:21: WBC 7.1, RBC 4.26 L, Hgb 11.7 L, Hct 37.4 L, MCV 87.8, MCH 27.5, MCHC 31.3 L, RDW Std Deviation 49.1 H, RDW Coeff of Ivonne 15.4 H, Plt Count 203, MPV 9.0, Immature Gran % (Auto) 0.300, Neut % (Auto) 61.0, Lymph % (Auto) 24.3, [place] % (Auto) 11.5 H, Eos % (Auto) 2.5, Baso % (Auto) 0.4, Absolute Neuts (auto) 4.3, Absolute Lymphs (auto) 1.73, Nucleated RBC % 0, Sodium 139, Potassium 3.7, Chloride 109 H, Carbon Dioxide 25.0, Anion Gap 5, BUN 11, Creatinine 1.00, Estim Creat Clear Calc 72.73, Est GFR (MDRD) Af Amer 94, Est GFR (MDRD) Non-Af 77, BUN/Creatinine Ratio 11.0, Glucose 124 H, Calcium 9.0
--- NOTE | 2024-08-04 14:44 | PRE.ANES_ITS ---
ASA Classification* ASA Classification ASA Classification: 3 Assessment & Plan Anesthesia* Anesthesia Assessment Anesthesia Assessment: Discussed sedation and/or anesthesia options, risks, benefits, and alternatives with patient/parents/legal guardian/POA. Questions invited. The patient/parents/legal guardian/POA seems to understand and agrees to proceed with anesthesia plan. Reviewed the physical assessment, medical history, allergy history and patient home medications list prior to surgery/procedure/anesthetic and documented any changes. Performed airway and anesthesia risk assessments. Anesthesia Type Anesthesia Type: MAC Anesthesia Focused Assessment* Temperature: 97.5 F Pulse Rate: 63 Blood Pressure: 130/80 Respiratory Rate: 16 Pulse Ox: 99 Oxygen Delivery Method: Room Air Airway Assessment Mouth opens: >3 cm Mallampati Score: II Teeth Condition: Intact Neck Range of motion (ROM): Limited ROM (Slight decrease in extension) Pertinent Findings EKG Pertinent Findings:: August 04, 2024. Sinus bradycardia at 53 bpm. Focused Labs Anesthesia Preop lab: CBC WBC 7.1 K/mm3 (4.4-11.0) 08/04/24 06:21 RBC 4.26 M/mm3 (4.6-6.2) L 08/04/24 06:21 Hgb 11.7 g/dL (13.0-16.5) L 08/04/24 06:21 Hct 37.4 % (40-54) L 08/04/24 06:21 Plt Count 203 K/mm3 (150-450) 08/04/24 06:21 CHEMISTRY Potassium 3.7 mmol/L (3.5-5.1) 08/04/24 06:21 Sodium 139 mmol/L (136-145) 08/04/24 06:21 BUN 11 mg/dL (7-18) 08/04/24 06:21 Creatinine 1.00 mg/dL (0.70-1.30) 08/04/24 06:21 Glucose 124 mg/dL (74-106) H 08/04/24 06:21 POC Glucose 133 mg/dL (74-106) H 02/08/23 16:39 COAG PT 12.7 SECONDS (11.7-14.9) 08/01/18 03:30 Pre-Assessment Diagnosis/Proposed Procedure Planned Operative Procedure(s): Colonoscopy Anesthesia History Anesthesia History - licensed psychologist manager: Anesthesia History - licensed psychologist manager Hx Hospitalization No 12/18/20 14:53 Any Problems With Anesthesia No 08/04/24 06:02 Cholinesterase deficiency No 08/04/24 06:02 You/Your Family Experience No 08/04/24 06:02 fever (hyperthermia) with Relationship Recent Exposure to Contagious No 08/04/24 06:02 Disease Does patient have nerve No 08/04/24 06:02 stimulator Patient instructed to have No 08/04/24 06:02 device shut off --Does patient have Pacemaker No 08/04/24 10:10 or ICD? When Was Last Pacemaker Check QUESTION #4 FULL TEXT: You/Your Family Experience fever (hyperthermia) with Anesthesia Last Oral Intake Last Oral intake: Last Oral Intake NPO since 00:00 08/04/24 10:10 Meds taken in AM with sips of Yes 08/04/24 10:10 water? Meds patient instructed to Protonix, Bayron @ 1012 08/04/24 10:10 take am of surgery PONV PONV - licensed psychologist manager: PONV - licensed psychologist manager Female HX of Motion Sickness HX of N/V After Surgery Non-Smoker Duration of Surgery greater than 60 minutes Number of Risk Factors PONV Score Height & Weight Height & Weight: Anesthesia: Height & Weight Height 5 ft 10 in 08/04/24 10:10 Weight: 91.9 kg 08/04/24 10:10 Body Mass Index (BMI) 29.0 08/04/24 10:10 Respiratory Assessment Respiratory Assessment - licensed psychologist manager: Respiratory Tract Infection Hx - licensed psychologist manager Hx Respiratory Tract Infection No 08/04/24 06:02 STOP Sleep Apnea STOP Sleep Apnea - licensed psychologist manager: STOP Sleep Apnea - licensed psychologist manager Hx Hypertension No 07/31/24 16:11 Hx Sleep Apnea Yes 08/03/24 13:48 CPAP Yes 08/03/24 13:32 BIPAP No 07/31/24 16:11 Do you snore loudly (louder than talking or can be heard Do you often feel tired/ fatigued/ sleepy during daytime? Has anyone observed you stop breathing during sleep? STOP Results Positive 08/03/24 13:32 QUESTION #5 FULL TEXT : Do you snore loudly (louder than talking or can be heard through closed doors)? 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 Specify any problems Hx of Preganancy in last 3 N/A 07/31/24 16:11 Months Nurse Filling Out Transfusion FARIHA 07/31/24 16:11 & Questions: Date: 07/31/24 07/31/24 16:11 Time: 16:23 07/31/24 16:11 Patient unable to answer at this time (ie. confused, unrespo /Reproduction History /Reproductive History - licensed psychologist manager: /Reproductive Hx- licensed psychologist manager Hx Now No 08/04/24 06:02 Gestational Age (in weeks): EDC: Hx Hx Para Hx Section SAB No 08/04/24 06:02 Active Medications Active Medications: Current Medications Generic Name Dose Route Start Last Admin Trade Name Freq PRN Reason Stop Dose Admin Aspirin 81 mg 08/01/24 08:00 08/03/24 14:27 Aspirin E.C. 81 Mg Tablet PO 81 mg DAILYCM JADE Administration Atorvastatin Calcium 40 mg 07/31/24 22:00 08/03/24 22:59 Atorvastatin Calcium 40 Mg Tablet PO 40 mg QHS JADE Administration Hydrochlorothiazide 12.5 mg 08/01/24 10:00 08/03/24 14:27 Hydrochlorothiazide 12.5mg PO 12.5 mg DAILY JADE Administration Protocol Sodium Chloride 250 mls @ 15 mls/hr 07/31/24 16:15 IV .[id number] PRN Additional IVPB Infusion Sodium Chloride 250 mls @ 15 mls/hr 07/31/24 16:15 IV .[id number] PRN Saline Flush Sodium Chloride 1,000 mls @ 15 mls/hr 08/03/24 10:35 08/04/24 07:50 IV 0 mls/hr .Q48H JADE Infusion Metoprolol Succinate 25 mg 07/31/24 22:00 08/03/24 22:59 Metoprolol(Xl)Succ 25 Mg Tablet PO 25 mg QHS JADE Administration Protocol Nitroglycerin 0.4 mg 07/31/24 16:28 08/03/24 08:23 Nitroglycerin (Inpatient Use) 0.4 Mg Tab.Subl SL 0.4 mg Q5M PRN Administration CARDIAC/CHEST PAIN Pantoprazole Sodium 40 mg 07/31/24 22:00 08/04/24 10:12 Pantoprazole Sodium 40 Mg Tablet PO 40 mg BID JADE Administration Potassium Chloride 20 meq 08/01/24 08:00 08/03/24 14:26 Potassium Chloride Oral Tablet 20 Meq PO 20 meq DAILYCM JADE Administration Ranolazine 1,000 mg 07/31/24 22:00 08/04/24 10:12 Ranolazine 500 Mg Tablet PO 1,000 mg BID JADE Administration Sertraline HCl 50 mg 08/01/24 22:00 08/03/24 22:59 Sertraline 50 Mg Tablet PO 50 mg QHS JADE Administration Sodium Chloride 10 - 40 ml 07/31/24 16:15 08/04/24 10:12 0.9% Saline Lock 10 Ml Syringe IV 10 ml UD PRN Administration SALINE FLUSH PFSH Medical History Cataract, bilateral NSVT (nonsustained ventricular tachycardia) Non-smoker DVT (deep venous thrombosis) Non-ischemic cardiomyopathy History of deep vein thrombosis of lower extremity 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 GERD (gastroesophageal reflux disease) Chest pain HLD (hyperlipidemia) Family history of heart disease Home Medications ?Medication ?Instructions ?Recorded ?Last Taken ?Type multivitamin,pn-nuzh-hveikoiv 27 1 tab PO DAILY supplement 10/28/15 02/08/23 History mg-0.4 mg tablet aspirin 81 mg tablet,delayed 81 mg PO DAILY heart health #30 02/09/23 Unknown Rx release tabs atorvastatin 40 mg tablet 40 mg PO DAILY cholesterol #30 tabs 02/09/23 Unknown Rx ascorbic acid (vitamin C) 500 mg 1,000 mg PO DAILY supplement 08/02/23 Unknown History capsule pantoprazole 40 mg tablet,delayed 40 mg PO BID GERD 08/02/23 08/04/24 History release nitroglycerin 0.4 mg sublingual 0.4 mg sublingual Q5M PRN chest 09/29/23 Unknown Rx tablet pain #20 tabs potassium chloride 20 mEq 20 meq PO DAILY supplement #90 tabs 03/20/24 Unknown Rx tablet,extended release metoprolol succinate 25 mg 25 mg PO QHS heart health #90 06/16/24 Unknown Rx tablet,extended release 24 hr TABLETS ranolazine 1,000 mg 1,000 mg PO BID #180 tabs 06/16/24 08/04/24 Rx tablet,extended release,12 hr hydrochlorothiazide 12.5 mg tablet 12.5 mg PO DAILY diuretic 07/31/24 Unknown History sertraline 50 mg tablet 50 mg PO QHS 07/31/24 07/30/24 History Allergy/AdvReac Type Severity Reaction Status Date / Time No Known Allergies Allergy Verified 07/31/24 07:56 Family History Father CAD (coronary artery disease) CVA (cerebral vascular accident) Myocardial infarction, Onset Age: 50 Other Family history of heart disease Surgical History History of foot surgery (12/2019) History of left heart catheterization (12/07/11) pheochromocytoma excision History of tonsillectomy History of total adrenalectomy Social History Smoking Status: Never smoker alcohol intake: current substance use type: does not use Review of Systems (Anesthesia) ROS Narrative System reviewed and no additional complaints, except as documented.
--- NOTE | 2024-08-04 15:48 | OP.COLON_ITS ---
Patient Name: Wiliam Fernandez Procedure Date: 08/04/2024 3:16 PM Date of : 1950 Age: 74 Procedure: Colonoscopy Indications: Iron deficiency anemia Providers: Kenroy Young DO Medicines: Monitored Anesthesia Care Patient Profile: This is a 74 year old male. Refer to note in patient chart for documentation of history and physical. Last Colonoscopy: 10 years ago. Complications: No immediate complications. Procedure: Pre-Anesthesia Assessment: - Prior to the procedure, a History and Physical was performed, and patient medications and allergies were reviewed. The patient is competent. The risks and benefits of the procedure and the sedation options and risks were discussed with the patient. All questions were answered and informed consent was obtained. Patient identification and proposed procedure were verified by the physician in the pre-procedure area. Mental Status Examination: alert and oriented. Airway Examination: normal oropharyngeal airway and neck mobility. Respiratory Examination: clear to auscultation. CV Examination: normal. Prophylactic Antibiotics: The patient does not require prophylactic antibiotics. Prior Anticoagulants: The patient has taken no anticoagulant or antiplatelet agents. ASA Grade Assessment: II - A patient with mild systemic disease. After reviewing the risks and benefits, the patient was deemed in satisfactory condition to undergo the procedure. The anesthesia plan was to use monitored anesthesia care (MAC). Immediately prior to administration of medications, the patient was re-assessed for adequacy to receive sedatives. The heart rate, respiratory rate, oxygen saturations, blood pressure, adequacy of pulmonary ventilation, and response to care were monitored throughout the procedure. The physical status of the patient was re-assessed after the procedure. After I obtained informed consent, the scope was passed under direct vision. Throughout the procedure, the patient's blood pressure, pulse, and oxygen saturations were monitored continuously. The Colonoscope was introduced through the anus and advanced to the cecum, identified by appendiceal orifice and ileocecal valve. The colonoscopy was performed without difficulty. The patient tolerated the procedure well. The quality of the bowel preparation was adequate. The terminal ileum was photographed. Scope In: 3:31:17 PM Scope Withdrawal Time 0 hours 7 minutes 58 seconds Scope Out: 3:42:43 PM Total Procedure Duration Time 0 hours 11 minutes 26 seconds Findings: The perianal and digital rectal examinations were normal. Multiple small and large-mouthed diverticula were found in the recto-sigmoid colon, sigmoid colon and descending colon. Stool was found in the rectum, in the recto-sigmoid colon and in the cecum. The exam was otherwise without abnormality on direct and retroflexion views. Impression: - Diverticulosis in the recto-sigmoid colon, in the sigmoid colon and in the descending colon. - Stool in the rectum, in the recto-sigmoid colon and in the cecum. - The examination was otherwise normal on direct and retroflexion views. - No specimens collected. Recommendation: - Discharge patient to home. - Resume regular diet. - Continue present medications. - Outpatient capsule endoscopy - Repeat colonoscopy in 5 years for surveillance. Procedure Code(s): --- Professional --- 47275, Colonoscopy, flexible; diagnostic, including collection of specimen(s) by brushing or washing, when performed (separate procedure) CPT copyright 2021 [employer]. All rights reserved. The codes documented in this report are preliminary and upon biofuels production technician review may be revised to meet current compliance requirements. Kenroy Young DO 08/04/2024 3:48:18 PM This report has been signed electronically. Number of Addenda: 0 Note Initiated On: 08/04/2024 3:16 PM
--- NOTE | 2024-08-04 15:48 | PCM.POST.ANE ---
Anesthesia: Postop Eval I Current Vital Signs Temperature: 97.5 F Pulse Rate: 60 Blood Pressure: 92/58 Respiratory Rate: 14 Pulse Ox: 98 Oxygen Delivery Method: Room Air Assessment Airway patent: Yes Spontaneous unlabored respirations: Yes Mental status: Asleep nausea: No Vomiting: No Anesthesia Complication: No Fluid Hydration Crystalloid volume administer (ml): 400 Total IV fluid infused: 400 Progress Note Anesthesia document: Postop Eval 1 completed: Yes
--- NOTE | 2024-08-04 15:49 | OP.CCLET_ITS ---
08/04/2024 Lincoln Henning Re : Colonoscopy procedure for Wiliam Fernandez Saritar Juvencio This procedure was performed on Sunday, August 04, 2024. My impressions and recommendations are as follows: Impressions : - Diverticulosis in the recto-sigmoid colon, in the sigmoid colon and in the descending colon. - Stool in the rectum, in the recto-sigmoid colon and in the cecum. - The examination was otherwise normal on direct and retroflexion views. - No specimens collected. Recommendations : - Discharge patient to home. - Resume regular diet. - Continue present medications. - Outpatient capsule endoscopy - Repeat colonoscopy in 5 years for surveillance. My findings are described in the full procedure note, which is enclosed. If I can be of further assistance, please feel free to contact me at . Sincerely, Kenroy Young, 08/04/2024 3:48:18 PM This report has been signed electronically.
[2024-08-04] MEDS: Potassium Chloride Oral Tablet 20 MEQ PO (16:49)
[2024-08-04] MEDS: Aspirin E.C. 81 MG Tablet PO (16:50)
[2024-08-04] MEDS: hydroCHLOROthiazide 12.5mg 12.5 MG PO (16:50)
--- NOTE | 2024-08-04 16:59 | DS.PCM_ITS ---
Providers Date of Admission: 07/31/24 Date of Discharge: 08/04/24 Primary Care Physician: Dr. Lincoln Henning MD Consultations 08/01/24 14:35 Consult: Gastroenterology Routine Consulting Provider: [facility] Reason for Consult: worsening iron def anemia, eval for EGD EMERGENT Consult: No MD Notified: Yes Date Notified: 08/01/24 Time Notified: 14:53 Method of Notification: Text Reason For Visit: chest pain Diagnosis Discharge Diagnosis (1) Chest pain: Status: Acute Code(s): R07.9 - Chest pain, unspecified (2) Iron deficiency anemia: Status: Acute Code(s): D50.9 - Iron deficiency anemia, unspecified Medications at Discharge Home Medications multivitamin,xo-zpeu-ratervrv 27 mg-0.4 mg tablet 1 tab PO DAILY supplement 10/28/15 aspirin 81 mg tablet,delayed release 81 mg PO DAILY [facility] [place]loo #30 tabs 02/09/23 atorvastatin 40 mg tablet 40 mg PO DAILY cholesterol #30 tabs 02/09/23 ascorbic acid (vitamin C) 500 mg capsule 1,000 mg PO DAILY supplement 08/02/23 pantoprazole 40 mg tablet,delayed release 40 mg PO BID GERD 08/02/23 nitroglycerin 0.4 mg sublingual tablet 0.4 mg sublingual Q5M PRN chest pain #20 tabs 09/29/23 potassium chloride 20 mEq tablet,extended release 20 meq PO DAILY supplement #90 tabs 03/20/24 metoprolol succinate 25 mg tablet,extended release 24 hr 25 mg PO QHS [facility] #90 TABLETS 06/16/24 ranolazine 1,000 mg tablet,extended release,12 hr 1,000 mg PO BID #180 tabs 06/16/24 hydrochlorothiazide 12.5 mg tablet 12.5 mg PO DAILY diuretic 07/31/24 sertraline 50 mg tablet 50 mg PO QHS 07/31/24 Hospital Course Operations None Procedures Colonoscopy, EGD, EKG, Nuclear stress test and - (Chest x-ray, CT abdomen pelvis) Summary of Care Provided Minutes Spent on Discharge: 35 Hospital Course: Patient is a 73-year-old male who presented [facility] ED on 07/31/2024 with chest pain. Hospital course as noted below. Patient discharged home in stable condition on 08/04. 1. Chest pain and mild shortness of breath on exertion ? Most likely due to newly diagnosed anemia as noted below. EKG nonacute, troponins negative x 2, chest x-ray unremarkable and hemodynamically stable on admission. Cardiac stress test on 08/01 was unremarkable. Has history of nonobstructive CAD noted on heart cath back in 2022; echo at that time showed EF 60% with stage I diastolic function, no other abnormalities. Patient reports new mild shortness of breath on exertion over the past several weeks and has noticed this as well. No further cardiac workup needed at this time. Further management as below. 2. Newly diagnosed iron deficiency anemia ? GI followed. Hemoglobin 11.8 on admit, down from baseline hemoglobin 14-15. Iron studies showed severe iron deficiency anemia with ferritin 13. CT abdomen pelvis with IV contrast on 08/01 was unremarkable. Last colonoscopy was 4 to 5 years ago and patient had a few small polyps, has otherwise never had significant findings on colonoscopy. EGD 08/03 showed esophageal mucosal changes suspicious for eosinophilic esophagitis but no ulcers or other source of bleeding noted. Colonoscopy 08/04 showed diverticulosis in the rectosigmoid, sigmoid and descending colon but no areas of bleeding and no other abnormalities. Will plan for outpatient capsule endoscopy shortly after discharge. Given doses of IV iron on 08/02 and 08/03. Hemoglobin remained stable around 11 during hospitalization. Continue treatment with p.o. PPI twice daily on discharge; no need for inhaled budesonide at this point. Chronic medical conditions: ? History of nonobstructive CAD, history of nonsustained SVT, hypertension, hyperlipidemia: Follows with outpatient cardiology, last office visit in June; no changes made at that time. Continue home aspirin, statin, hydrochlorothiazide, Toprol and ranolazine. ? History of TIA: Continue home aspirin and statin. ? DAVE: Continue home CPAP. ? Depression: Stable. Continue home sertraline. ? Remote history of pheochromocytoma s/p surgical resection Total clinical time spent by myself addressing the patient's medical issues, reviewing all the data, and collaborating with patient's care team: 35 minutes. Physical Exam Const alert, oriented x3, no apparent distress and average body habitus Constitutional Narrative: Pleasant elderly male, good energy level, sitting up comfortably in bed, conversing normally, in no acute distress. Stable. General Appearance: cooperative and comfortable HEENT normocephalic, head/scalp atraumatic, hearing grossly normal bilaterally, nasal mucous membranes and turbinates normal and moist oral mucous membranes Eyes PERRL, EOMs intact bilaterally and conjunctivae normal Neck full ROM Chest inspection of chest normal Resp normal respiratory effort, normal air movement, no use of accessory muscles and clear to auscultation bilaterally Cardio regular rate, regular rhythm, no murmurs and peripheral pulses 2+ throughout GI normal to inspection, nondistended, normoactive bowel sounds, soft to palpation, non-tender and non-distended Back/Spine normal ROM Extremity normal to inspection, full ROM and no pedal edema Skin no rashes or lesions noted Neuro no focal motor deficits and no sensory deficits noted Speech: speech normal Psych mental status grossly normal Weight / BMI Weight Weight: 91.9 kg Body Mass Index (BMI) 29.0 ABG / Lab / Microbiology Data 08/04/24 06:21 08/04/24 06:21 Laboratory: Laboratory Results - last 24 hr 08/04/24 06:21: WBC 7.1, RBC 4.26 L, Hgb 11.7 L, Hct 37.4 L, MCV 87.8, MCH 27.5, MCHC 31.3 L, RDW Std Deviation 49.1 H, RDW Coeff of Ivonne 15.4 H, Plt Count 203, MPV 9.0, Immature Gran % (Auto) 0.300, Neut % (Auto) 61.0, Lymph % (Auto) 24.3, [place] % (Auto) 11.5 H, Eos % (Auto) 2.5, Baso % (Auto) 0.4, Absolute Neuts (auto) 4.3, Absolute Lymphs (auto) 1.73, Nucleated RBC % 0, Sodium 139, Potassium 3.7, Chloride 109 H, Carbon Dioxide 25.0, Anion Gap 5, BUN 11, Creatinine 1.00, Estim Creat Clear Calc 72.73, Est GFR (MDRD) Af Amer 94, Est GFR (MDRD) Non-Af 77, BUN/Creatinine Ratio 11.0, Glucose 124 H, Calcium 9.0 D/C Instructions Discharge Diet: No restrictions Meaningful Use Info Meaningful Use Meaningful Use Diagnoses (Choose all that apply): None applicable Ischemic Stroke Statin Dosing Therapy Reference: STATIN DOSE THERAPY REFERENCE: * Patients > 75 years receive moderate or high dose statin therapy. * Patients 75 years or YOUNGER should receive HIGH intensity statin dose unless contraindicated. You will be required to document reason for non-treatment if statin daily dose does not meet guidelines. HIGH DOSE STATIN THERAPY DAILY Atorvastatin > than or = to 40 mg Rosuvastatin > than or = to 20 mg Amlodipine + Atorvastatin > than or = to 2.5/40 mg Ezetimibe + Simvastatin 10/80 mg Simvastatin 80mg Discharge Plan Admission Admit Date/Time: 08/02/24 14:58 Primary Reason for Your Visit: Chest pain Attending Provider: Lucio Beltrán Primary Care Provider: Lincoln Henning Consulting Providers: Rolf Perrin Instructions Additional Instructions / Restrictions: Continue all home medications as normal. Follow-up with Dr. Young in the office to determine timing of outpatient capsule endoscopy for further evaluation of a possible GI bleed. Discharge Orders/Prescriptions Prescriptions: Continued ascorbic acid (vitamin C) 500 mg capsule 1,000 mg PO DAILY pantoprazole 40 mg tablet,delayed release (DR/EC) 40 mg PO BID Patient Comments: TAKE 1 TABLET BY MOUTH TWICE A DAY multivitamin,un-mtaa-dynpfsel 1 TABLET tablet 1 tab PO DAILY atorvastatin 40 mg Tablet 40 mg PO DAILY Qty: 30 0RF aspirin 81 mg tablet,delayed release (DR/EC) 81 mg PO DAILY Qty: 30 0RF nitroglycerin 0.4 mg tablet, sublingual 0.4 mg sublingual Q5M PRN (Reason: chest pain) Qty: 20 0RF Rx Instructions: do not exceed 3 doses per episode hydrochlorothiazide 12.5 mg tablet 12.5 mg PO DAILY sertraline 50 mg tablet 50 mg PO QHS potassium chloride 20 mEq tablet extended release 20 meq PO DAILY Qty: 90 3RF ranolazine 1,000 mg tablet extended release 12 hr 1,000 mg PO BID Qty: 180 3RF metoprolol succinate 25 mg tablet extended release 24 hr 25 mg PO QHS Qty: 90 3RF Referrals / Follow Up: Lincoln Henning MD [Primary Care Provider] - Disposition Disposition (needs filled in before D/C Order can be placed): Home, Self Care Charges/Coding Visit Charges Inpatient E&M: 29643 Disch Hosp >30min
--- NOTE | 2024-08-04 17:48 | PCM.POSTANE2 ---
Anesthesia Postop Eval I Sum Postop Eval Completion status Anesthesia document: Postop Eval 1 completed: Yes Anesthesia Postop Eval I Summary Anesthesia Postop Eval I Summary: Anesthesia Postop Eval I: Assessment Summary Airway patent Yes 08/04/24 15:49 [email or web address] Spontaneous unlabored Yes 08/04/24 15:49 [email or web address] respirations Mental status Asleep 08/04/24 15:49 [email or web address] nausea No 08/04/24 15:49 [email or web address] Vomiting No 08/04/24 15:49 [email or web address] Anesthesia Postop Eval I: Fluid Summary Crystalloid volume administer 400 08/04/24 15:49 [email or web address] (ml) Colloids volume administered ( ml) Blood Product volume administered (ml) Total IV fluid infused 400 08/04/24 15:49 [email or web address] Anesthesia Postop Eval I: Summary Notes Anesthesia Complication No 08/04/24 15:49 [email or web address] Anesthesia Complication Comment: Post-operative progress note Anesthesia: Postop Eval II Evaluation Mental status: Awake and Calm Pain Level: 0 nausea: No Vomiting: No Complications Anesthesia Complication: No
--- NOTE | 2024-08-04 17:50 | ANES.CONFIRM ---
Anesthesia: Confirm Documents Multiple Procedures on Account (2) Confirmed Documents: Yes
== END 2024-08-04 18:44 | disposition home or self-care (01) | DRG 812 ==
LOC: ED 08:48 → PCU 16:04
PROVIDERS: Internal Medicine Gastroenterology; Admitting Provider Family Medicine; Emergency Provider Emergency Medicine; PCP Family Medicine; Visit Provider Hospitalist
PROC: 0DJ08ZZ Inspection of Upper Intestinal Tract, Via Natural or Artificial Opening Endoscopic (ICD-10-PCS; CPT 43235; principal; 2024-08-03 11:25)
PROC: 0DJD8ZZ Inspection of Lower Intestinal Tract, Via Natural or Artificial Opening Endoscopic (ICD-10-PCS; CPT 45378; principal; 2024-08-04 15:10)
DX: D50.9 Iron deficiency anemia, unspecified (principal); I42.8 Other cardiomyopathies; I10 Essential (primary) hypertension; F32.A Depression, unspecified; E78.5 Hyperlipidemia, unspecified; K21.9 Gastro-esophageal reflux disease without esophagitis; G47.33 Obstructive sleep apnea (adult) (pediatric); K44.9 Diaphragmatic hernia without obstruction or gangrene; K20.0 Eosinophilic esophagitis; K57.30 Diverticulosis of large intestine without perforation or abscess without bleeding; I25.10 Atherosclerotic heart disease of native coronary artery without angina pectoris; K22.89 Other specified disease of esophagus; Z79.82 Long term (current) use of aspirin; Z79.899 Other long term (current) drug therapy; Z86.73 Personal history of transient ischemic attack (TIA), and cerebral infarction without residual deficits; Z99.89 Dependence on other enabling machines and devices; R07.9 Chest pain, unspecified
CPT/HCPCS: 36415; 71046; 74177; 78452; 80048; 82607; 82728; 82746; 83540; 83550; 83880; 84484; 85025; 85027; 85379; 88305; 88312; 93005; 93017; 99285; A9500; Q9967; A4216; J2405; J2785; J2916

== ENCOUNTER → 2024-09-04 | Outpatient (CLI) | payer MEDICARE, SELFPAY ==
[2024-09-04 13:13] LABS: Absolute Neutrophil Count 2.6 X10^3/uL (2.0-7.7); Basophil# 0.03 X10^3/uL; Basophil% 0.6 % (0-1); Eosinophil# 0.12 X10^3/uL; Eosinophils% 2.3 % (0-5); Hematocrit 40.6 % (40-54); Hemoglobin 13.3 g/dL (13.0-16.5); Lymphocyte % 34.5 % (19-41); Mean Corp Hgb Conc 32.8 g/dL (32-36); Mean Corpuscular Hgb 29.3 pg (27.0-32.0); Mean Corpuscular Volume 89.4 fL (80-94); Mean Platelet Vol. 9.5 fl (6.2-12.0); Monocyte# 0.61 X10^3/uL; Monocyte% 11.7 % (0-10); NRBC Flagged by Analyzer 0 % (0-5); Neutrophil # 2.64 X10^3/uL (2.7-7.7); Neutrophil % 50.5 % (47-70); Platelet Count 185 K/mm3 (150-450); RBC Distribution Width CV 18.2 % (11.6-14.6); RBC Distribution Width SD 59.5 fl (35.1-43.9); RET-HE 34.8 pg (30-35); Red Blood Count 4.54 M/mm3 (4.6-6.2); Reticulocyte Count 1.88 % (0.5-1.5); White Blood Count 5.2 K/mm3 (4.4-11.0)
[2024-09-04 13:18] LABS: Erythrocyte Sedimentation Rate 12 mm/hr (0-20)
[2024-09-04 13:47] LABS: CRP < 2.90 mg/L (0.0-3.0); Ferritin 64 ng/mL (26-388); Iron 90 ug/dL (65-175); Iron Binding Capacity,Total 367 ug/dL (250-450)
[2024-09-09 15:09] LABS: ACCA 14 units (0-90); ALCA 2 units (0-60); AMCA 16 units (0-100); Endomysial Antibody IgA Negative (Negative); Immunoglobulin A 249 mg/dL (61-437); gASCA 0 units (0-50); t-Transglutaminase IgA <2 U/mL (0-3)
== END | disposition home or self-care (01) ==
LOC: LAB 12:00
PROVIDERS: PCP Family Medicine; Referring Provider Internal Medicine Gastroenterology; Visit Provider Internal Medicine Gastroenterology
DX: D50.9 Iron deficiency anemia, unspecified (principal)
CPT/HCPCS: 36415; 82728; 82784; 83516; 83540; 83550; 85025; 85045; 85652; 86036; 86140; 86255; 86671

== ENCOUNTER → 2025-03-01 | Outpatient (CLI) | payer MEDICARE, SELFPAY ==
--- NOTE | 2025-03-01 15:05 | ECHOD_ITS ---
Reason For Study Reason For Study: DCMP Procedure This was a 2D Doppler, Color Flow transthoracic echocardiogram. Patient declined use of definity. Exam performed in department. Left Ventricle Normal LV size. Moderate concentric left ventricular hypertrophy. Left ventricular systolic function is normal. The left ventricular ejection fraction is 65 %. Stage 1 diastolic dysfunction. No regional wall motion abnormalities noted. Right Ventricle Normal RV size. Normal systolic function. Atria Normal left atrium. Normal right atrium. Mitral Valve Normal mitral valve. Tricuspid Valve Normal tricuspid valve. Aortic Valve Trisinus/trileaflet aortic valve. Mild focal aortic valve calcification. Pulmonic Valve Normal pulmonic valve. Great Vessels Normal aortic root. The pulmonary artery is normal size. Inferior vena cava collapse with respiration. Pericardium/Pleural No pericardial effusion. MMode/2D Measurements & Calculations LVIDd: 4.6 cm IVSd: 1.5 cm LVOT diam: 2.0 cm LVIDs: 3.1 cm LVPWd: 1.7 cm LVOT area: 3.3 cm2 FS: 32.6 % Ao root diam: 3.5 cm LAV(MOD-bp): 51.7 ml LVAd ap4: 27.0 cm2 LAV(MOD-bp) Indexed: 24.4 ml/m2 LVLd ap4: 8.0 cm LAV(MOD-sp2): 45.0 ml EDV(MOD-sp4): 79.4 ml LAV(MOD-sp4): 47.3 ml EDV(sp4-el): 77.8 ml LVAs ap4: 13.9 cm2 LVLs ap4: 6.8 cm ESV(MOD-sp4): 25.5 ml ESV(sp4-el): 24.1 ml EF(MOD-sp4): 67.9 % EF(sp4-el): 69.0 % SV(MOD-sp4): 53.9 ml SV(sp4-el): 53.7 ml LA A4 area: 19.3 cm2 SI(MOD-sp4): 25.5 ml/m2 LA dimension(2D): 3.1 cm RA A4 area: 15.0 cm2 Time Measurements MV dec time: 0.31 sec Doppler Measurements & Calculations MV E max tejas: 42.9 cm/sec Lat Peak E' Tejas: 9.8 cm/sec Med Peak E' Tejas: 8.2 cm/sec MV A max tejas: 72.7 cm/sec E/E' lat: 4.4 E/E' med: 5.3 MV E/A: 0.59 MV V2 max: 81.8 cm/sec Ao V2 max: 161.3 cm/sec MV max P.7 mmHg MV dec slope: 139.8 cm/sec2 Ao max P.4 mmHg MV V2 mean: 47.5 cm/sec Ao V2 mean: 113.0 cm/sec MV mean P.99 mmHg Ao mean P.9 mmHg MV V2 VTI: 28.6 cm Ao V2 VTI: 33.6 cm AV (velocity ratio): 0.69 MVA(VTI): 2.7 cm2 DREA(I,D): 2.3 cm2 DREA(V,D): 1.9 cm2 LV V1 max: 95.5 cm/sec SV(LVOT): 76.2 ml PA V2 max: 89.3 cm/sec LV V1 max P.6 mmHg PA V2 mean: 57.9 cm/sec LV V1 mean P.2 mmHg LV V1 mean: 70.2 cm/sec LV V1 VTI: 23.2 cm ECHO/Echo Complete Interpretation Summary Normal LV size. Left ventricular systolic function is normal. The left ventricular ejection fraction is 65 %. Moderate concentric left ventricular hypertrophy. Stage 1 diastolic dysfunction. Structurally normal valves. Ordering Physician: Vanesa Mcdonald Referring Physician: Vanesa Mcdonald Performed By: Yvette Moss RCS
== END | disposition home or self-care (01) ==
LOC: CVS 15:04
PROVIDERS: PCP Family Medicine; Referring Provider Physician Assistant Medical; Visit Provider Physician Assistant Medical
DX: I42.8 Other cardiomyopathies (principal); I25.10 Atherosclerotic heart disease of native coronary artery without angina pectoris; R06.09 Other forms of dyspnea; I10 Essential (primary) hypertension
CPT/HCPCS: 93306

== ENCOUNTER 2025-06-29 12:09 | Emergency (ER) | payer MEDICARE, SELFPAY ==
[2025-06-29 12:10] VITALS: BP 133/72; PULSE 71; RESP 18; TEMP 36.9; O2SAT 98; BMI 28.7
[2025-06-29 12:12] VITALS: BP 133/72; PULSE 71; RESP 18; TEMP 36.9; O2SAT 98
[2025-06-29] MEDS: 0.9% Normal Saline (1000mL) 1,000 ML 150 ML IV (12:38)
[2025-06-29] MEDS: Ampicillin/Sulbactam 3 GM in 0.9% Normal Saline (100mL MB+) 100 ML IV (12:38)
[2025-06-29 12:40] LABS: Hematocrit 35.4 % (40-54); Hemoglobin 12.6 g/dL (13.0-16.5); Immature Granulocytes Count 0.020 X10^3/uL (0.0-0.0); Mean Corp Hgb Conc 35.6 g/dL (32-36); Mean Corpuscular Volume 93.2 fL (80-94); Mean Platelet Vol. 9.2 fl (6.2-12.0); NRBC Flagged by Analyzer 0 % (0-5); POSITIVE DIFFERENTIAL YES; Platelet Count 111 K/mm3 (150-450); RBC Distribution Width CV 12.2 % (11.6-14.6); RBC Distribution Width SD 41.7 fl (35.1-43.9); Red Blood Count 3.80 M/mm3 (4.6-6.2); White Blood Count 5.3 K/mm3 (4.4-11.0)
--- NOTE | 2025-06-29 12:55 | RAD_ITS ---
PROCEDURE: HAND MIN 3 VIEWS 06/29/2025 REASON FOR EXAM: INFECTED CAT BITE MIDDLE FINGER, CONCERN TENOSYNOV TECHNIQUE: HAND MIN 3 VIEWS Laterality: Left COMPARISON: None FINDINGS: Bones: No fracture seen. Joints: No dislocation Soft tissues: Soft tissue swelling 3rd digit. No radiopaque foreign body. Possible laceration of the middle phalanx laterally. Other: Wedding ring overlying the proximal phalanx 4th digit. RAD/Hand Min 3 Views IMPRESSION: Soft tissue swelling. No foreign body. No fracture Reading Location: [id number]
--- NOTE | 2025-06-29 13:19 | EDS_ITS ---
HPI History of Present Illness Chief Complaint: Bite Detail of Chief Complaint: Cat bite right thumb and left middle finger Informant: patient, spouse/S.O. and PCP (Called to tell me he was sending patient over for IV antibiotics.) Onset/Context/Timing Onset: - (Patient was bit Saturday. He was treated with Augmentin yesterday. 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 GERD (gastroesophageal reflux disease) Chest pain HLD (hyperlipidemia) Family history of heart disease Home Medications ?Medication ?Instructions ?Recorded ?Last Taken ?Type aspirin 81 mg tablet,delayed 81 mg PO DAILY heart heal th #30 02/09/23 06/29/25 Rx release tabs atorvastatin 40 mg tablet 40 mg PO DAILY cholesterol # 30 tabs 02/09/23 06/29/25 Rx ascorbic acid (vitamin C) 500 mg 1,000 mg PO DAILY sup plement 08/02/23 06/29/25 History capsule pantoprazole 40 mg tablet,delayed 40 mg PO BID GERD 06/29/25 History release sertraline 50 mg tablet 50 mg PO QHS 07/31/24 History hydrochlorothiazide 12.5 mg tablet 25 mg PO DAILY diur etic 08/10/24 06/29/25 History isosorbide mononitrate 30 mg 30 mg PO QAM #30 tabs 12/1106/29/25 Rx tablet,extended release 24 hr metoprolol succinate 25 mg 25 mg PO QHS #90 tabs 09/1006/28/25 Rx tablet,extended release 24 hr ranolazine 1,000 mg 1,000 mg PO BID #180 tabs 06/29/25 Rx tablet,extended release,12 hr abiraterone 250 mg tablet 1,000 mg PO DAILY 06/29/25 0 06/29/25 History cholecalciferol (vitamin D3) 25 25 mcg PO DAILY Unknown History mcg (1,000 unit) capsule (Vitamin D3) metformin 500 mg tablet 500 mg PO BID 06/29/2506/29 History prednisone 5 mg tablet 5 mg PO DAILY 06/29/2506/29 History Allergy/AdvReac Type Severity Reaction Status Date / Time No Known Allergies Allergy Verified 06/29/25 12:13 Family History Father CAD (coronary artery disease) CVA (cerebral vascular accident) Myocardial infarction, Onset Age: 50 Other Family history of heart disease Surgical History History of foot surgery (12/2019) History of left heart catheterization (12/07/11) pheochromocytoma excision History of tonsillectomy History of total adrenalectomy Social History Smoking Status: Never smoker alcohol intake: current substance use type: does not use EXAM Physical Exam Const Vital Signs: 06/29/25 12:10 06/29/25 12:12 Temperature 98.4 F 98.4 F Temperature Source Oral Oral Pulse Rate 71 71 Respiratory Rate 18 18 Blood Pressure 133/72 H 133/72 H Blood Pressure Mean 92 92 Pulse Ox 98 98 Oxygen Delivery Method Room Air Room Air [facility] Lab Data Labs: Laboratory Results - last 24 hr 06/29/25 12:30 WBC 5.3 RBC 3.80 L Hgb 12.6 L Hct 35.4 L MCV 93.2 MCH 33.2 H MCHC 35.6 RDW Std Deviation 41.7 RDW Coeff of Ivonne 12.2 Plt Count 111 L MPV 9.2 Immature Gran % (Auto) 0.400 Neut % (Auto) 78.0 H Lymph % (Auto) 7.9 L [place] % (Auto) 12.4 H Eos % (Auto) 1.1 Baso % (Auto) 0.2 Absolute Neuts (auto) 4.2 Absolute Lymphs (auto) 0.42 L Nucleated RBC % 0 Radiography Diagnostic Testing: Clinical Impression(s) from Imaging Studies Hand X-Ray 06/29/25 12:55 IMPRESSION: Soft tissue swelling. No foreign body. No fracture Reading Location: [id number] Discharge Plan Triage Chief Complaint: Bite ED Provider: Leonel Mckenzie Dx/Rx/DC Orders Prescriptions: No Action ascorbic acid (vitamin C) 500 mg capsule 1,000 mg PO DAILY pantoprazole 40 mg tablet,delayed release (DR/EC) 40 mg PO BID Patient Comments: TAKE 1 TABLET BY MOUTH TWICE A DAY atorvastatin 40 mg Tablet 40 mg PO DAILY Qty: 30 0RF aspirin 81 mg tablet,delayed release (DR/EC) 81 mg PO DAILY Qty: 30 0RF metformin 500 mg tablet 500 mg PO BID cholecalciferol (vitamin D3) [Vitamin D3] 25 mcg (1,000 unit) capsule 25 mcg PO DAILY prednisone 5 mg tablet 5 mg PO DAILY abiraterone 250 mg tablet 1,000 mg PO DAILY sertraline 50 mg tablet 50 mg PO QHS hydrochlorothiazide 12.5 mg tablet 25 mg PO DAILY isosorbide mononitrate 30 mg tablet extended release 24 hr 30 mg PO QAM Qty: 30 11RF metoprolol succinate 25 mg tablet extended release 24 hr 25 mg PO QHS Qty: 90 3RF ranolazine 1,000 mg tablet extended release 12 hr 1,000 mg PO BID Qty: 180 3RF Primary Care Provider: Lincoln Henning Referrals: Lincoln Henning MD [Primary Care Provider] - Print Language: [place]
--- NOTE | 2025-06-29 13:19 | EX.ED.GENINJ ---
HPI History of Present Illness Chief Complaint: Bite Detail of Chief Complaint: Cat bite right thumb and left middle finger Informant: patient, spouse/S.O. and PCP (Called to tell me he was sending patient over for IV antibiotics.) Onset/Context/Timing Onset: - (Patient was bit Saturday. He was treated with Augmentin yesterday. He followed up today and was sent over because his wounds are worse) Mechanism/Context: other (Cat bite right thumb and multiple bite perry left middle finger) Location: Right thumb and right middle finger Current Severity: Mild Maximum Severity: Severe Worsened by: Passive extension of left long finger Relieved by: Nothing specific Associated Symptoms Associated Symptoms: Positive for Loss of function; Negative for Parasthesias, Weakness, Inability to ambulate or Loss of consciousness Narrative Narrative: Patient is a 74-year-old [id number] male. He has history of CVA, nonischemic cardiomyopathy, essential hypertension, hyperlipidemia, iron deficiency anemia and coronary artery disease. He was bit by his cat on Saturday. He was seen at urgent care yesterday and treated with Augmentin. He has a bite to the distal portion of his right thumb and bite left long finger. He was seen today by his PCP. He was sent here for IV antibiotics. He has pain with movement of his left long finger. He has no symptoms with respect to his right thumb. 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 GERD (gastroesophageal reflux disease) Chest pain HLD (hyperlipidemia) Family history of heart disease Home Medications ?Medication ?Instructions ?Recorded ?Last Taken ?Type aspirin 81 mg tablet,delayed 81 mg PO DAILY heart health #30 02/09/23 06/29/25 Rx release tabs atorvastatin 40 mg tablet 40 mg PO DAILY cholesterol #30 tabs 02/09/23 06/29/25 Rx ascorbic acid (vitamin C) 500 mg 1,000 mg PO DAILY supplement 08/02/23 06/29/25 History capsule pantoprazole 40 mg tablet,delayed 40 mg PO BID GERD 08/02/23 06/29/25 History release sertraline 50 mg tablet 50 mg PO QHS 07/31/24 06/28/25 History hydrochlorothiazide 12.5 mg tablet 25 mg PO DAILY diuretic 08/10/24 06/29/25 History isosorbide mononitrate 30 mg 30 mg PO QAM #30 tabs 08/18/24 06/29/25 Rx tablet,extended release 24 hr metoprolol succinate 25 mg 25 mg PO QHS #90 tabs 09/10/24 06/28/25 Rx tablet,extended release 24 hr ranolazine 1,000 mg 1,000 mg PO BID #180 tabs 06/28/25 06/29/25 Rx tablet,extended release,12 hr abiraterone 250 mg tablet 1,000 mg PO DAILY 06/29/25 06/29/25 History cholecalciferol (vitamin D3) 25 25 mcg PO DAILY 06/29/25 Unknown History mcg (1,000 unit) capsule (Vitamin D3) metformin 500 mg tablet 500 mg PO BID 06/29/25 06/29/25 History prednisone 5 mg tablet 5 mg PO DAILY 06/29/25 06/29/25 History Allergy/AdvReac Type Severity Reaction Status Date / Time No Known Allergies Allergy Verified 06/29/25 12:13 Family History Father CAD (coronary artery disease) CVA (cerebral vascular accident) Myocardial infarction, Onset Age: 50 Other Family history of heart disease Surgical History History of foot surgery (12/2019) History of left heart catheterization (12/07/11) pheochromocytoma excision History of tonsillectomy History of total adrenalectomy Social History Smoking Status: Never smoker alcohol intake: current substance use type: does not use ROS ROS ED Constitutional Constitutional ED: Denies chills, fever(s), subjective, sweats or weight loss Cardiovascular Cardiovascular: Denies chest pain or palpitations Respiratory/Chest Respiratory/Chest: Denies cough or dyspnea Gastrointestinal Gastrointestinal: Denies nausea or vomiting Musculoskeletal Musculoskeletal: Denies arthralgias or myalgias Integumentary Reports rash and other Details: Wound with purulent material from bite ria radial side left long finger. Culture sent by PCP Neurologic Neurologic: Denies paresthesias or weakness Hematologic/Lymphatic Hematologic/Lymphatic: Denies easy bleeding or easy bruising EXAM Physical Exam Const Vital Signs: 06/29/25 12:10 06/29/25 12:12 06/29/25 14:10 Temperature 98.4 F 98.4 F Temperature Source Oral Oral Pulse Rate 71 71 60 Respiratory Rate 18 18 18 Blood Pressure 133/72 H 133/72 H 126/79 H Blood Pressure Mean 92 92 94 Pulse Ox 98 98 98 Oxygen Delivery Method Room Air Room Air Room Air Positive well nourished and well developed General Appearance ED: well developed and NAD HEENT atraumatic Eyes PERRL and EOMs intact bilaterally Resp normal respiratory effort and clear to auscultation bilaterally Cardio regular rhythm, S1 normal heart sound, S2 normal heart sound and no murmurs GI normal to inspection, nondistended, normoactive bowel sounds, non-tender, non-distended and no masses Extremity Negative for normal to inspection Extremity Narrative: Patient has a flap type laceration distal aspect/tip of his right thumb. There is no erythema, warmth, induration or fluctuance. There is no subungual hematoma noted. Examination of his left upper extremity Viel swelling of his left hand with significant swelling of the ring and long finger. He has not been able to remove his ring. Will have nurse remove with ring cutter. Patient has drainage from bite ria on the radial side of his left long finger. It is purulent. Culture was sent by PCP. This was not repeated in the ED. He is finger is slightly flexed and enlarged. He also has swelling of his hand. He has tenderness over the third zone of the flexor tendon. This along with pain with passive extension raises concern for flexor tenosynovitis. There is slight erythema dorsum of his left hand. Neuro oriented x3, CN's II-XII intact bilaterally, no focal motor deficits and no sensory deficits noted Sensorium / Orientation: alert Psych mental status grossly normal and thought process normal Skin No no rashes or lesions noted and No no wounds MDM MDM MDM Narrative Medical decision making narrative: X-ray was obtained to evaluate for retained foreign body i.e. fractured tooth. Also to see if there is any subcutaneous air. Blood work was obtained. Patient was started on Unasyn. He was made NPO. Patient request transfer to [facility] Since it is affiliated with [facility]. He is seen by the [facility] physicians in [place]. Since I hand is not available today at [place] we will transfer to [facility]. Lab Data Attestation: I reviewed the patient's lab results. Lab results narrative: CBC is remarkable for mild anemia. Comprehensive metabolic panel is marked for glucose of 142 otherwise unremarkable. Labs: Laboratory Results - last 24 hr 06/29/25 12:30 WBC 5.3 RBC 3.80 L Hgb 12.6 L Hct 35.4 L MCV 93.2 MCH 33.2 H MCHC 35.6 RDW Std Deviation 41.7 RDW Coeff of Ivonne 12.2 Plt Count 111 L MPV 9.2 Immature Gran % (Auto) 0.400 Neut % (Auto) 78.0 H Lymph % (Auto) 7.9 L Hancock % (Auto) 12.4 H Eos % (Auto) 1.1 Baso % (Auto) 0.2 Absolute Neuts (auto) 4.2 Absolute Lymphs (auto) 0.42 L Nucleated RBC % 0 Sodium 141 Potassium 3.6 Chloride 108 Carbon Dioxide 21.9 Anion Gap 11 BUN 16 Creatinine 0.82 Estim Creat Clear Calc 88.17 Est GFR (MDRD) Non-Af 91 BUN/Creatinine Ratio 18.9 Glucose 142 H Calcium 9.2 Total Bilirubin 0.78 AST 19 ALT 24 Alkaline Phosphatase 70 Total Protein 6.2 Albumin 3.9 Globulin 2.3 Albumin/Globulin Ratio 1.7 Radiography Diagnostic Testing: Clinical Impression(s) from Imaging Studies Hand X-Ray 06/29/25 12:55 IMPRESSION: Soft tissue swelling. No foreign body. No fracture Reading Location: [id number] Management Discussion w/another healthcare provider: Other (Spoke with the nurse for [facility] Transfer line. She was informed that I needed to discuss case with hand surgery. I have not had a call back as of 1449.) Treatment and Re-Evaluation Narrative: Spoke with Siria. Her questions were answered. Dr. Garsia did accept patient. ED to ED. Spoke with Dr. Jefferson of the ER physician at [facility]. Discharge Plan Triage Chief Complaint: Bite ED Provider: Leonel Mckenzie Dx/Rx/DC Orders Clinical Impression: Suppurative tenosynovitis of flexor tendon of left hand, Non-ischemic cardiomyopathy, Essential hypertension, HLD (hyperlipidemia), CAD (coronary artery disease), Infected cat bite of finger Prescriptions: No Action ascorbic acid (vitamin C) 500 mg capsule 1,000 mg PO DAILY pantoprazole 40 mg tablet,delayed release (DR/EC) 40 mg PO BID Patient Comments: TAKE 1 TABLET BY MOUTH TWICE A DAY atorvastatin 40 mg Tablet 40 mg PO DAILY Qty: 30 0RF aspirin 81 mg tablet,delayed release (DR/EC) 81 mg PO DAILY Qty: 30 0RF metformin 500 mg tablet 500 mg PO BID cholecalciferol (vitamin D3) [Vitamin D3] 25 mcg (1,000 unit) capsule 25 mcg PO DAILY prednisone 5 mg tablet 5 mg PO DAILY abiraterone 250 mg tablet 1,000 mg PO DAILY sertraline 50 mg tablet 50 mg PO QHS hydrochlorothiazide 12.5 mg tablet 25 mg PO DAILY isosorbide mononitrate 30 mg tablet extended release 24 hr 30 mg PO QAM Qty: 30 11RF metoprolol succinate 25 mg tablet extended release 24 hr 25 mg PO QHS Qty: 90 3RF ranolazine 1,000 mg tablet extended release 12 hr 1,000 mg PO BID Qty: 180 3RF Primary Care Provider: Lincoln Henning Referrals: Lincoln Henning MD [Primary Care Provider] - Print Language: Tristanian Disposition Disposition: Acute Care Hospital Discharge Location: [facility]
[2025-06-29 13:22] LABS: AST(SGOT) 19 U/L (<=37); Alanine Aminotransfer ALT/SGPT 24 U/L (<=46); Albumin, Serum 3.9 g/dL (3.4-4.8); Alkaline Phosphatase 70 U/L (40-129); Anion Gap 11 (5-15); BUN 16 mg/dL (4-19); BUN/Creat Ratio 18.9 RATIO (10-20); Calcium,Total 9.2 mg/dL (7.6-11.0); Carbon Dioxide 21.9 mmol/L (21.0-32.0); Chloride 108 mmol/L (98-108); Estimated Creatinine Clearance 88.17 ml/min (50-250); Globulin 2.3 g/dL (2.2-4.2); Glucose 142 mg/dL (70-99); Potassium 3.6 mmol/L (3.3-5.1)
[2025-06-29 14:10] VITALS: BP 126/79; PULSE 60; RESP 18; O2SAT 98
[2025-06-29 15:15] VITALS: BP 126/79; PULSE 60; RESP 18; TEMP 36.9; O2SAT 98
--- NOTE | 2025-06-29 15:24 | ED.RN ---
Per Dr Isaiah Cannon for Pt family to transfer Pt and leave saline lock in place. Report called to [facility]. Transfer Packet send with Pt.
--- NOTE | 2025-06-29 15:26 | ED.RN ---
Report called to Trini at [facility].
== END 2025-06-29 15:34 | disposition short-term general hospital (02) ==
PROVIDERS: Emergency Provider Emergency Medicine; PCP Family Medicine; Visit Provider Emergency Medicine
DX: M65.142 Other infective (teno)synovitis, left hand (principal); I42.8 Other cardiomyopathies; I25.10 Atherosclerotic heart disease of native coronary artery without angina pectoris; S61.051A Open bite of right thumb without damage to nail, initial encounter; I10 Essential (primary) hypertension; S61.253A Open bite of left middle finger without damage to nail, initial encounter; E78.5 Hyperlipidemia, unspecified; W55.01XA Bitten by cat, initial encounter; Z86.73 Personal history of transient ischemic attack (TIA), and cerebral infarction without residual deficits; Z79.82 Long term (current) use of aspirin; Z79.899 Other long term (current) drug therapy; K21.9 Gastro-esophageal reflux disease without esophagitis
CPT/HCPCS: 73130; 80053; 85025; 96361; 96365; 99285; A4216; J0295